=== PATIENT | male | born 1960 | race Caucasian/White ===

== ENCOUNTER 2023-08-09 05:53 | Inpatient (IN) | payer BC, SELFPAY ==
[2023-08-09] VITALS (18 sets, daily range): BP systolic 109–168; BP diastolic 53–128; BMI 38.6; BMI 37.1
--- NOTE | 2023-08-09 03:19 | ED.GENMED ---
History of Present Illness
General
Chief Complaint: Abdominal Pain
Source: patient and spouse
Exam Limitations: none
Time Seen by Provider: 08/09/23 03:10
Nursing documentation reviewed up to this point in time: agreed with
Travel History
Have you had any contact with someone who has COVID-19?: No
Do you have any symptoms of coronavirus? Fever > 100 degrees, chills, cough, shortness of breath, sore throat, loss of taste or smell, muscle aches, or headache?: No
History of Present Illness
History of Present Illness:
63-year-old male presents emergency department complaining of diffuse abdominal pain, writhing began 5 hours ago. He takes Eliquis, recent right hip replacement on OxyContin and stool softener. He feels constipated and has not had a bowel 3 days.
Past History
Past History
ED Past Medical History: Arrthythmia (Atrial fib), CAD, HTN, Hypercholesterolemia and Other (Kidney stones)
ED Past Surgical History: Cardiac (2011 CABG) and Orthopedic (Left knee replacement. Right hip replacement)
Social History
Tobacco: Non-smoker
Alcohol: Occasional
Drug: None
Personal:
Living: alone
Review of Systems
Review of Systems
Allergies reviewed?: Yes
All Other Systems: Not applicable
Constitutional: Reports no symptoms
EENT: Reports no symptoms
Respiratory: Reports no symptoms
Cardiac: Reports no symptoms
ABD/GI: Reports abdominal pain, nausea and constipated
: Reports no symptoms
Musculoskeletal: Reports no symptoms
Skin: Reports no symptoms
Neurological: Reports no symptoms
Endocrine: Reports no symptoms
Hematologic/Lymphatic: Reports no symptoms
Psychiatric: Reports no symptoms
Phy Exam
Physical Exam
Physical Exam:
Physical Exam
General: Moderate distress, fever 100.4
Neck: supple. no meningeal signs. normal posterior pharynx
Heart: s1/s2 tachycardia, no murmur. equal radial
pulses.
HEENT: Pupils equal round reactive to light, EOMI
Lungs: no acute respiratory distress. clear bilaterally
Abdomen: normal bowel sounds. Diffuse abdominal tenderness, rebound, guarding. No CVAT
Neuro: alert and oriented. no focal neurological deficits cranial nerves II through XII intact
Skin: no rash
Psychiatric: well kept. interactive and cooperative
Extremities: no edema. no calf tenderness. negative homans. good distal pulses
Course
Orders/Labs/Results
Orders:
Orders
08/09/23 02:52
EKG [Electrocardiogram (*1)] Urgent
Reason for Study: Abdominal Pain
EKG- Treatment ONCE
08/09/23 02:58
IV Insert/Care/Rem.- Treatment PRN
08/09/23 02:59
Cardiac Monitoring- Treatment ONCE
Pulse Ox/spot Check [RESP] Urgent
Quantity: 1
Special Instructions: ON ROOM AIR
08/09/23 03:16
Complete Blood Count/With Diff Urgent
Comprehensive Metabolic Panel Urgent
Lactic Acid Q4H
Comment: ON ICE, CANCEL 2ND ORDER IF FIRST LACTIC ACID LEVEL <2
Lipase Urgent
Troponin I Urgent
Blood Culture Q30M
BURKE Source: Blood/Venous
Specimen Description:
Comment: FROM 2 SEPARATE SITES
08/09/23 03:17
HYDROmorphone [Dilaudid] 1 mg IV NOW STA
Ondansetron Injectable [Zofran] 4 mg IV NOW STA
08/09/23 03:56
CT Abd/pel Without Iv Or Oral Urgent
Comment:
Reason For Exam: diffuse abd pain, fever
08/09/23 04:28
Urinalysis Reflex To Culture Urgent
Date Specimen was Collected: 08/09/23
Time Specimen was Collected: 04:24
Urine Microscopic Reflex Cult Urgent
Blood Culture Q30M
BURKE Source: Blood/Venous
Specimen Description:
Comment: FROM 2 SEPARATE SITES
08/09/23 04:45
Piperacillin/Tazo 4.5 Gram [Zosyn] 4.5 gram in 100 ml IV NOW
08/09/23 05:12
HYDROmorphone [Dilaudid] 1 mg IV NOW STA
08/09/23 05:34
HYDROmorphone [Dilaudid] 1 mg IV NOW STA
Prochlorperazine [Compazine] 10 mg IV NOW STA
08/09/23 05:39
Admit/Transfer Patient As Directed
Co-Sign Provider:
Level of Care: Inpatient admission
Assign to:: Telemetry
Physician / Group: Piotr
Diagnosis: Acute Cholecystitis
Reason for Telemetry: Arrhythmia
Date to Stop Telemetry: 08/12/23
Time to Stop Telemetry: 11:00
Reason for Hospitalization: Acute Cholecystitis
Expected length of stay greater than two midnights?: Yes
ELOS- Estimated Length of Stay in days: 4
I certify the patient meets the requirements for IP care: Yes
08/09/23 05:40
Code Status As Directed
Resuscitation Status: Full Code
08/09/23 05:45
Furosemide [Lasix] 20 mg IV NOW STA
08/09/23 06:00
Flush (0.9% Sodium Chloride) [Flush (Nss)] See Dose Instructions IV PER PROTOCOL
08/09/23 07:15
Lactic Acid Q4H
Comment: ON ICE, CANCEL 2ND ORDER IF FIRST LACTIC ACID LEVEL <2
08/09/23 07:19
Acetaminophen [Tylenol] 650 mg PO Q4HPRN PRN
HYDROmorphone [Dilaudid] 0.5 mg IV Q4HPRN PRN
Ondansetron Injectable [Zofran] 4 mg IV Q6HPRN PRN
08/09/23 07:19
SURGICAL CONSULT Routine
Consulting Provider: Osmani Gardner
Was physician already notified: Yes
Reason for consult: Cholecystitis
Urine Osmolality Random [Osmolality, Random Urine] Routine
Urine Sodium Routine
Activity As Directed
Activity Level: Ambulate
With Assistance
Bladder Scan As Directed
Follow Bladder Retention/Intermittent Cath Algorithm?: Yes
PRN if no void in __ hours: 6
Frequency: Per Retention Algorithm
If Bladder Scan Result >: 400
then:: Straight cath
EKG with chest pain [ECG as needed] As Directed
ECG as needed for:: Chest Pain
I/O [Intake/ Output] As Directed
Frequency: Per unit guidelines
Pneumatic Compression Sleeves As Directed
Type: Knee high
Straight Cath As Directed
Frequency: Per Retention Algorithm
Additional Instructions: straight cath as needed per acute urinary retention algorithm for 24 hrs
Additional Instructions: for bladder scan greater than 400 mL
Vital Signs As Directed
Frequency: Per unit guidelines
Weight As Directed
Frequency: Daily
Oxygen Therapy [O2 Therapy] [RESP] Routine
Titrate/Wean O2 to maintain O2 sat greater than (%): 94
Rx Incentive Spirometry [RESP] Routine
Frequency: q1h while awake
Ot Eval And Treat Routine
PT Consult [Pt Eval And Treat] Routine
Activity Level: Ambulate
With Assistance
DX Deep Vein Thrombosis Video Routine
08/09/23 08:00
Metoprolol Xl [Toprol Xl] 50 mg PO DAILY
Pantoprazole [Protonix IV] 40 mg IV DAILY
08/09/23 12:00
Piperacillin/Tazo 3.375 Gram [Zosyn] 3.375 gram in 50 ml IV Q6H
08/10/23 Breakfast
NPO
Allow oral meds: Yes
Allow clear liquids: Sips of Clears
Basic Metabolic Panel IN AM
Complete Blood Count/No Diff IN AM
LFT [Iiodw-Ychg-Ydkniav] IN AM
US Abdomen Complete/Upper IN AM
Comment:
Reason For Exam: Acute Viviana
08/10/23 08:00
Furosemide [Lasix] 20 mg IV DAILY
08/12/23 11:00
DC Protocol for Telemetry ONCE
Abnormal Lab Results
08/09/23 08/09/23
03:16 04:28
WBC 17.9 H 10^3/uL
(4.8-10.8)
RBC 2.50 L 10^6/uL
(4.70-6.10)
Hgb 7.9 L g/dL
(13.0-18.0)
Hct 24.1 L %
(39.0-52.0)
MCV 96.4 H fL
(80.0-94.0)
MCH 31.6 H pg
(27.0-31.0)
MCHC 32.8 L g/dL
(33.0-37.0)
Abs Immat Gran (auto) 0.1 H 10^3/uL
(0-0.05)
Absolute Neuts (auto) 15.4 H 10^3/uL
(1.4-6.5)
Absolute Lymphs (auto) 0.6 L 10^3/uL
(1.2-3.4)
Absolute Monos (auto) 1.2 H 10^3/uL
(0.1-0.6)
Immature Gran % 0.6 H %
(0-0.5)
Neutrophils % 86.5 H %
(42.2-75.2)
Lymphocytes % 3.5 L %
(20.5-51.1)
Sodium 127 L mmol/L
(135-145)
Potassium 5.3 H mmol/L
(3.5-5.1)
Carbon Dioxide 16 L mmol/L
(22-30)
BUN 33 H mg/dl
(9-20)
Creatinine 1.7 H mg/dL
(0.7-1.3)
Glucose 144 H mg/dl
(70-99)
Total Bilirubin 1.4 H mg/dl
(0.2-1.3)
Alkaline Phosphatase 198 H U/L
(38-126)
Urine Ketones 2+ A
(Negative)
Ur Occult Blood Reflex Trace A
(Negative)
Urine Glucose 3+ A
(Negative)
08/09/23 03:16
08/09/23 03:16
Vital Signs
Initial and Last Documented VS:
Initial Vital Signs
Temp Pulse Resp BP Pulse Ox
100.4 F H 114 28 141/85 98
08/09/23 02:41 08/09/23 02:41 08/09/23 02:41 08/09/23 02:41 08/09/23 02:41
Last Documented Vital Signs
Temp Pulse Resp BP Pulse Ox
100.4 F H 103 23 156/128 97
08/09/23 03:37 08/09/23 07:15 08/09/23 07:15 08/09/23 07:10 08/09/23 07:15
MDM/Problems Addressed
Differential Diagnosis Includes:
UTI, sepsis
MDM/Problems Addressed:
63-year-old male with cholecystitis. Admit to hospitalist. Discussed with Dr. Gardner, on-call general surgeon
Chronic conditions affecting care: HTN and CAD
Acute Exacerbation and/or Progression of Chronic Illness: HTN and CAD
*Radiology
Radiology exam reviewed: radiology read reviewed (CT abdomen pelvis shows acute cholecystitis)
*Pulse Oximetry
Patient hypoxic: no
*EKG
Interpreted by ED Provider?: Yes
EKG Intrepretation Date: 08/09/23
EKG Intrepretation Time: 04:43
Interpretation: abnormal
Comparison EKG: changes noted
Heart Rate: 130
Rate: tachycardiac
Rhythm: sinus tachycardia
[place]: normal axis
Interval: normal interval
QRS Pattern: normal QRS
Ischemia: no ischemia
*Creasing Machine Operator Interpretation
Rate: tachycardiac
Interpretation: abnormal
Heart Rate: 105
Rhythm: sinus tachycardia
*Critical Care Note
Total Time (30-74mins, 75-104mins- exclusive of procedures): Not Applicable
Patient Management
Social determinants of health affecting care: Strong social support
Discussion with other providers: Hospitalist and [employer] Maker (General surgery Dr. Gardner)
Escalation/DeEscalation of care consider admission/obs:
Admit indicated
ED Attending Note
-
Portions of this chart may have been created with voice recognition software.� Occasional wrong word or��sound alike� substitutions may have occurred due to the inherent limitations of voice recognition software.
Discharge Plan
Departure
Patient Disposition: Admit
Date of Disposition: 08/09/23
Time of Disposition: 04:57
Admit to: Telemetry
Presentation/result/management discussed w/ accepting MD/DO: Hospitalist
Patient with high blood pressure during this ER visit?: Yes
Condition: Fair
Discharge Problem:
Acute cholecystitis, Chronic renal insufficiency, Paroxysmal atrial fibrillation
Interventions
Interventions:
*Risk Screen - Suicide Last Done: 08/09/23 03:10
*General Assessment Last Done: 08/09/23 03:10
*Neglect/Abuse Screening Last Done: 08/09/23 03:10
ED- Fall Risk Assessment Last Done: 08/09/23 03:10
*ED COVID-19 Vaccine History Last Done: 08/09/23 03:10
PH-Araznh-Ecekyeplpb Assessment Last Done: 08/09/23 03:10
[2023-08-09 03:25] LABS: % Basophils 0.2 % (0-2); % Eosinophils 2.7 % (0-6); % Immature Granulocytes 0.6 % (0-0.5); % Lymphocytes 3.5 % (20.5-51.1); % Monocytes 6.5 % (1.7-9.3); % Neutrophils 86.5 % (42.2-75.2); Absolute Eosinophils 0.5 10^3/uL (0-0.7); Absolute Immature Granulocytes 0.1 10^3/uL (0-0.05); Absolute Lymphocytes 0.6 10^3/uL (1.2-3.4); Absolute Monocytes 1.2 10^3/uL (0.1-0.6); Absolute Neutrophils 15.4 10^3/uL (1.4-6.5); Hematocrit 24.1 % (39.0-52.0); Hemoglobin 7.9 g/dL (13.0-18.0); Mean Corp Hgb Conc. 32.8 g/dL (33.0-37.0); Mean Corpuscular Hgb 31.6 pg (27.0-31.0); Mean Corpuscular Volume 96.4 fL (80.0-94.0); Nucleated Red Blood Cells % 0 % (-); Platelet Count 371 10^3/uL (130-400); Red Cell Dist. Width 14.4 % (11.5-14.5); White Blood Cell Count 17.9 10^3/uL (4.8-10.8)
[2023-08-09] MEDS: ZOFRAN 4 MG IV (03:29)
[2023-08-09] MEDS: DILAUDID 1 MG IV ×3 (03:30→05:42)
[2023-08-09 03:46] LABS: Lactic Acid 1.3 mmol/L (0.7-2.0)
[2023-08-09 03:47] LABS: ALT (SGPT) 19 U/L (0-50); AST (SGOT) 26 U/L (17-59); Albumin 3.9 g/dl (3.5-5.0); Alkaline Phosphatase 198 U/L (38-126); Blood Urea Nitrogen 33 mg/dl (9-20); Calcium 8.9 mg/dl (8.4-10.2); Carbon Dioxide 16 mmol/L (22-30); Chloride 99 mmol/L (98-107); Estimated Creatinine Clearance 58 ml/min; Glucose 144 mg/dl (70-99); Lipase 110 U/L (23-300); Potassium 5.3 mmol/L (3.5-5.1); Sodium 127 mmol/L (135-145); Total Bilirubin 1.4 mg/dl (0.2-1.3); Total Protein 6.6 g/dl (6.3-8.2); eGFR 44.18
[2023-08-09 04:04] LABS: Troponin I 0.034 ng/ml
[2023-08-09 04:41] LABS: Urine Albumin Trace (Neg - Trace); Urine Bilirubin Negative (Negative); Urine Character Clear (Clear); Urine Color Yellow; Urine Glucose 3+ (Negative); Urine Ketone 2+ (Negative); Urine Leukocyte Negative (Negative); Urine Nitrite Negative (Negative); Urine Occult Blood Trace (Negative); Urine Specific Gravity 1.015 (<1.030); Urine Urobilinogen Negative (Neg - 1+)
[2023-08-09] MEDS: ZOSYN 100 IV (05:16)
[2023-08-09 05:38] LABS: Urine Red Blood Cell None Seen /HPF (0-2); Urine White Cell None Seen /HPF (0-5)
[2023-08-09] MEDS: COMPAZINE 10 MG IV (05:42)
--- NOTE | 2023-08-09 05:45 | HPS.HSE ---
Family Physician
-
Family Physician: Yovani Rodriguez
Chief Complaint
-
Abd Pain
History of Present Illness
Patient is a 63y M with PMH significant for ASCVD, CHFpEF and CKD who presents to ED complaining of abdominal pain. Patient states that he had an episode of pain on evening that was in the RUQ / epigastric region, was fairly severe, but
resolved without intervention. He felt well in the interim until about 10PM today when his symptoms returned. They have not resolved this time but have continued to gradually increase. Patient complains of shaking chills, nausea without emesis
and abdominal pain that is fairly diffuse, but mostly in the epigastric area and the lower quadrants. He denies any prior history of similar symptoms before . He denies any chest pain, dyspnea, palpitations, etc.
Patient's recent history is significant for R MICHI revision that was done at [facility] on 07/20/22. He has been recovering fairly well from that; however, he does admit to ongoing issues with constipation since thet surgery.
He denies any issues with urination. He notes that he has been drinking a great deal of fluids. This evening particularly he drank 'gallons' hoping this would help his abdominal symptoms.
Medical History
Past Medical History
Past Medical History: Reports Other
Additional Past Medical History:
ASCVD
Chronic HFpEF
Paroxysmal Atrial Fibrillation
Nephrolithiasis
Benign Hypertension
Obesity
PATRIZIA on CPAP
Past Surgical History: Reports Other
Additional Past Surgical History:
Right MICHI Revision (07/20/23)
Right MICHI
Left TKA
PVI Ablation
CABG x 3
Social History
Tobacco: Non-smoker
Alcohol: Occasional (Rarely.)
Drug: None
Family History
Family History: Other (Mother: CAD Father: Alcoholism)
Allergies / Home Medications
Allergies reflects when Allergies were last updated in [facility].
Home Medications with original date entered in [facility]
Allergy/Medication List:
Allergies
Allergy/AdvReac Type Severity Reaction Status Date / Time
chlorthalidone Allergy Nausea Verified 02/10/22 13:00
pollen extracts Allergy coughing, Verified 02/10/22 13:00
wheezing,
sneezing
oxycodone HCl [From Percocet] AdvReac upset Verified 02/10/22 13:00
stomach
Home Medications
apixaban 5 mg tablet (Eliquis) 5 mg PO BID Blood clot prevention/tx 11/06/21
multivitamin with folic acid 400 mcg tablet (Tab-A-Margy) 1 tab PO DAILY Supplement 11/11/21
rosuvastatin 40 mg tablet (Crestor) 40 mg PO DAILY High cholesterol 11/11/21
lisinopril 20 mg tablet 20 mg PO BID #60 tabs 11/14/21
dapagliflozin propanediol 10 mg tablet (Farxiga) 10 mg PO DAILY 12/06/21
sildenafil 100 mg tablet (Viagra) 100 mg PO PRN PRN erectile dysfunction 12/06/21
docusate sodium 100 mg capsule 100 mg PO BID 08/09/23
furosemide 40 mg tablet 40 mg PO QMWF 08/09/23
metoprolol succinate 50 mg tablet,extended release 24 hr 50 mg PO DAILY 08/09/23
oxycodone 5 mg tablet 10 mg PO Q4H PRN severe pain 08/09/23
Review of Systems
-
History Source: Patient
A 12 point ROS was completed and negative except as noted: Yes
Constitutional: Reports Chills; Denies Fever
EENT: Denies Sore Throat
Respiratory: Denies Cough or Trouble Breathing
Cardiac: Denies Chest Pain or Palpitations
Abdomen/GI: Reports Abdominal Pain, Nausea and Constipated; Denies Vomiting
: Denies Dysuria, Frequency or Flank Pain
Neurological: Denies Dizzy or Headache
Psych: Reports Anxiety; Denies Depression
Physical Exam
Vital Signs
Vital Signs
Temp Pulse Resp BP Pulse Ox
100.4 F H 107 26 168/60 98
08/09/23 03:37 08/09/23 05:15 08/09/23 05:15 08/09/23 05:00 08/09/23 02:41
Physical Exam
General: Other (63y M in moderate distress due to abdominal pain.)
HEENT: Moist mucous membranes and PERRLA
Respiratory: Clear; No Wheezes, Rales or Rhonchi
Cardiac: S1/S2, Regular Rhythm and Murmur (II/ FREDY)
GI: Other (Softly distended. Diffusely tender - but specifically in the RUQ and bilateral lower quadrants. Bowel sounds present but diminished.)
Musculoskeletal: No Clubbing, No Cyanosis and Other (Edema at the R hip surrounding incision. Healing well. No significant ecchymosis.)
Neuro: AO x 3
Laboratory Results
-
08/09/23 03:16
08/09/23 03:16
Laboratory Results
Lactic Acid 1.3 mmol/L (0.7-2.0) 08/09/23 03:16
Total Bilirubin 1.4 mg/dl (0.2-1.3) H 08/09/23 03:16
AST 26 U/L (17-59) 08/09/23 03:16
ALT 19 U/L (0-50) 08/09/23 03:16
Alkaline Phosphatase 198 U/L (38-126) H 08/09/23 03:16
Troponin I 0.034 ng/ml 08/09/23 03:16
Lipase 110 U/L (23-300) 08/09/23 03:16
Impression/Plan
-
A/P: Patient is a 63y M with PMH significant for ASCVD, CHF and CKD who presents to ED for abdominal pain.
Acute Cholecystitis
Sepsis secondary to the above
- Admit for further evaluation and treatment.
- Patient presents with fever, tachycardia, leukocytosis and evidence for acute cholecystitis.
- CT scan shows GB distention with wall thickening and surrounding stranding. No evident gallstones.
- IV abx with Zosyn for now.
- IV pain control, antiemetics, etc.
- Surgery evaluation for eventual cholecystectomy
- Hold Eliquis for intervention - last dose was 08/08 PM.
Hyponatremia
- Likely secondary to increased fluid intake.
- Patient with increased fluid intake since surgery, but significantly moreso over the past 24 hours or so.
- Fluid restriction (NPO for now).
- Monitor I/Os and suspect patient will diurese appropriately.
- Check urine studies to confirm etiology.
- Will dose usual Lasix daily for now (see below).
- Consider Nephrology evaluation if no significant improvement.
s/p Right MICHI - Revision
- Healing well. Continue local care.
- Continue pain control.
- PT / OT evaluations.
Blood Loss Anemia
- Hgb on admission is 7.9 with baseline around 11-12 g/dL.
- Likely secondary to blood loss due to recent surgery.
- Holding Eliquis.
- Follow H&H.
- Consented for transfusion if necessary - which it may be perioperatively.
- Check iron studies.
ASCVD
- Stable. No complaints of chest pain.
- s/p CABG in the past but patient denies any coronary stents.
- Continue metoprolol with holding parameters.
Paroxysmal Atrial Fibrillation
- Stable. In sinus rhythm at present.
- Holding Eliquis as noted above for probable intervention.
- Continue metoprolol as noted.
- Monitor on tele.
Chronic HFpEF
- Suspect some degree of hypervolemia - likely due to recent increase in in take as noted above.
- Change Lasix from thrice weekly to daily for now.
- Follow I/Os, daily weights, etc.
- Adjust regimen as needed for euvolemia.
PATRIZIA on CPAP
- Continue usual AutoPAP therapy.
- Has device from home.
Obesity due to excess calories
- Affects all aspects of care.
- Encourage healthy diet and increased exercise with goal of weight loss.
DVT Prophylaxis: SCDs
Code Status: Full
[2023-08-09] MEDS: LASIX 20 MG IV (05:54)
--- NOTE | 2023-08-09 09:18 | W.PN.HOSP.TC ---
Today's Communication/Plan
-
Awaiting surgical consult
Continue IV abx.
Assessment / Plan
Assessment / Plan
63y M with PMH significant for ASCVD, CHF and CKD who presents to ED for abdominal pain.
1. Acute Cholecystitis, with sepsis (sepsis addressed separately)
Sepsis secondary to the above
�- CT scan shows GB distention with wall thickening and surrounding stranding.� No evident gallstones.
� - IV abx with Zosyn.
� - IV pain control, antiemetics
� - Surgery evaluation for eventual cholecystectomy
� - Hold Eliquis for possible intervention - last dose was 08/08 PM.
2. Sepsis (vs SIRS), Lactic acid not elevated at 1.3, with atypical fluid overload.
-BP elevated 156/128
-Fluid overloaded with peripheral edema
-Significant hyponatremia - likely hypervolemic hyponatremia
-Usually with sepsis, the standard of care is high volume fluids, in this case that would be detrimental as patient is fluid overloaded, not hypotensive, perfusing all tissues without lactic acidosis.
-Monitor BP
-Lasix as needed
-follow fluid status closely
3. Hyponatremia, likely hypervolemic hyponatremia
�- Likely secondary to increased fluid intake.
�- Patient with increased fluid intake since surgery, but significantly more so over the past 24 hours or so.
� - Fluid restriction (NPO for now).
� - Monitor I/Os and suspect patient will diurese appropriately.
� - Check urine studies to confirm etiology.
� - Dose usual Lasix daily for now (see below).
� - Nephrology evaluation if no significant improvement.
4. s/p Right MICHI - Revision
�- Healing well.�
- Continue local care.
� - Continue pain control.
� - PT / OT evaluations.
5. Blood Loss Anemia, s/p recent surgery
�- Hgb on admission is 7.9 with baseline around 11-12 g/dL.
�- Likely secondary to blood loss due to recent surgery.
� - Hold Eliquis.
� - Follow H&H. Now 7.04/05.1
� - Consented for transfusion if necessary - which it may be perioperatively.
Transfuse if < 01/30
� - Check iron studies.
6. ASCVD - Stable.� No complaints of chest pain.
�- s/p CABG in the past but patient denies any coronary stents.
� - Continue metoprolol with holding parameters.
7. Paroxysmal Atrial Fibrillation - Stable.� In sinus rhythm at present.
� - Hold Eliquis as noted above for probable intervention.
� - Continue metoprolol as noted.
� - Monitor on tele.
8. Chronic HFpEF
�- Suspect some degree of hypervolemia - likely due to recent increase in intake as noted above.
� - Change Lasix from thrice weekly to daily for now.
� - Follow I/Os, daily weights, etc.
� - Adjust regimen as needed for euvolemia.
9. PATRIZIA on CPAP - chronic
� - Continue usual AutoPAP therapy.
� - Has device from home.
10. Obesity due to excess calories, BMI 39
�- Affects all aspects of care.
� - Encourage healthy diet and increased exercise with goal of weight loss.
DVT Prophylaxis:� SCDs
Code Status:� Full
Anticipated Discharge: > 48 hours
Subjective/Interval History
-
Date of Service: August 09, 2023
Continues to have abd. pain.
Objective Data
-
Labs:
Laboratory Results
08/09/23
03:16
WBC 17.9 H
Hgb 7.9 L
Hct 24.1 L
Plt Count 371
Sodium 127 L
Potassium 5.3 H
Chloride 99
Carbon Dioxide 16 L
BUN 33 H
Creatinine 1.7 H
Glucose 144 H
Calcium 8.9
Total Bilirubin 1.4 H
AST 26
ALT 19
Alkaline Phosphatase 198 H
Vital Signs:
Vital Signs
Temp Pulse Resp BP Pulse Ox
100.4 F H 104 25 164/65 98
08/09/23 03:37 08/09/23 09:15 08/09/23 09:15 08/09/23 09:00 08/09/23 09:15
I&O
08/08/23 08/09/23 08/10/23
06:59 06:59 06:59
Output Total 850 / 850
Balance -850 / -850
Review of Systems
-
History Source: Patient
Abdomen/GI: Reports Abdominal Pain (all four quadrants)
Physical Exam
-
General: Well Developed, Well Nourished and No Apparent Distress
HEENT: Normocephalic, Nose Appears Normal and Ears Appear Normal
Respiratory: Clear to Auscultation
Cardiac: Murmur and Tachycardic
GI: Soft and Tender (all four quadrants)
Musculoskeletal: No Clubbing, No Cyanosis, Edema, Right Lower Extrem and Edema, Left Lower Extrem
Skin: Warm and Dry; Negative Rash
Neuro: Awake, Alert and Oriented
Psych: Calm
Data Reviewed
-
Labs: Labs Reviewed by me
Sepsis
Capillary Refill
Right Upper Extremity:
Parisa Time: Less than 3 sec
Pulse Evaluation
Right Radial:
Pulse Evaluation: Present
[2023-08-09] MEDS: TOPROL XL 50 MG PO (09:24)
[2023-08-09] MEDS: DILAUDID 0.5 MG IV ×5 (09:26→23:22)
[2023-08-09] MEDS: PROTONIX IV 40 MG IV (09:26)
[2023-08-09] MEDS: NSS (PRESERVATIVE FREE) 10 ML IV (09:26)
[2023-08-09 10:28] LABS: Iron 41 ug/dl (49-181)
[2023-08-09 10:35] LABS: Percent Saturation 16 % (20-50); Total Iron Binding Capacity 251 ug/dl (261-462)
[2023-08-09 10:40] LABS: Osmolality Urine 375 mOsm/kg (300-900)
[2023-08-09 10:45] LABS: Urine Sodium 88 mmol/L (30-90)
--- NOTE | 2023-08-09 11:09 | PTCARENOTE ---
pt wakes to name states 5/10 ruq pain. pain med given as ordered. pt stand with one person assist to void. right hip inc clean dry. pt using walker at home. pt on home cpap now. nsr seen on monitor.
[2023-08-09] MEDS: ZOSYN 50 IV ×3 (12:28→23:27)
[2023-08-09] MEDS: DILAUDID IV (12:28)
--- NOTE | 2023-08-09 13:58 | CON.GS ---
Addendum entered and electronically signed by Osmani Gardner MD 08/09/23 14:53:
I saw and examined the patient.
The PA's note was reviewed and I agree with the note.
Comment:
Patient seen earlier with PA.
History, vitals, labs, and imaging reviewed. Patient seen and examined.
53-year-old male on Eliquis with acute cholecystitis with associated right upper quadrant tenderness and fever. This was confirmed on imaging. Agree with admission, IV antibiotics, IV resuscitation, and holding Eliquis. Will likely need a
cholecystectomy. Will tentatively posted for tomorrow for the general surgery service. They will reassess assess in the a.m. Patient understands plan. All questions answered.
Thanks.
Original Note:
Consultation
-
Date/Time Consultation Requested: 08/09/2023, 07:19
Date/Time Consultation Performed: 08/09/2023, 11:00
Requesting Provider: Kvng Saldaña DO
Performing Provider: Osmani Gardner MD
Reason for Consultation: acute cholecystitis
Medical History
-
Chief Complaint: abdominal pain
History of Present Illness:
63-year-old male presents the emergency department this morning complaining of abdominal pain. He had an episode of the pain 3 days ago that resolved. The pain returned again late last evening around the epigastric area and right lower quadrant.
He states he has had chills, fevers, and nausea associated with the pain. He recently underwent a right hip replacement at [facility] on 07/20/2022. CT shows acute cholecystitis. We have been consulted for further surgical opinion.
Past Medical History
Past Medical History: Other (ASCVD, Chronic HFpEF, Paroxysmal Atrial Fibrillation, Nephrolithiasis, Benign Hypertension, Obesity, PATRIZIA, CPAP)
Past Surgical History: Other (Right MICHI Revision (07/20/23), Right MICHI, Left TKA, PVI Ablation, CABG x 3)
Social History
Tobacco: Non-Smoker
Alcohol: Occasional
Drug: None
Family History
Family History: Reviewed & Not Pertinent
Allergies / Home Medications
Allergy/AdvReac Type Severity Reaction Status Date / Time
chlorthalidone Allergy Nausea Verified 02/10/22 13:00
pollen extracts Allergy coughing, Verified 02/10/22 13:00
wheezing,
sneezing
oxycodone HCl [From Percocet] AdvReac upset Verified 02/10/22 13:00
stomach
Medication Instructions Recorded Confirmed Type
apixaban 5 mg tablet (Eliquis) 5 mg PO BID Blood clot 11/06/21 08/09/23 History
prevention/tx
multivitamin with folic acid 400 1 tab PO DAILY Supplement 11/11/21 08/09/23 History
mcg tablet (Tab-A-Margy)
rosuvastatin 40 mg tablet (Crestor) 40 mg PO DAILY High cholesterol 11/11/21 08/09/23 History
lisinopril 20 mg tablet 20 mg PO BID #60 tabs 11/14/21 08/09/23 Rx
dapagliflozin propanediol 10 mg 10 mg PO DAILY 12/06/21 08/09/23 History
tablet (Farxiga)
sildenafil 100 mg tablet (Viagra) 100 mg PO PRN PRN erectile 12/06/21 08/09/23 History
dysfunction
acetaminophen 500 mg tablet 1,000 mg PO Q6HPRN PRN mild pain 08/09/23 08/09/23 History
(Tylenol Extra Strength)
amlodipine 5 mg tablet 5 mg PO DAILY 08/09/23 08/09/23 History
docusate sodium 100 mg capsule 100 mg PO BID 08/09/23 08/09/23 History
furosemide 40 mg tablet 40 mg PO QMWF 08/09/23 08/09/23 History
metoprolol succinate 50 mg 50 mg PO DAILY 08/09/23 08/09/23 History
tablet,extended release 24 hr
oxycodone 5 mg tablet 10 mg PO Q4H PRN severe pain 08/09/23 08/09/23 History
Review of Systems
-
History Source: Patient
Constitutional: Fever and Chills
Abdomen/GI: Abdominal Pain and Nausea
A 10 point review of systems was completed, and was negative except as per HPI.
Physical Exam
Vital Signs
Temp Pulse Resp BP Pulse Ox
99.6 F 105 22 146/72 95
08/09/23 11:07 08/09/23 11:00 08/09/23 11:00 08/09/23 11:00 08/09/23 11:08
08/08/23 08/09/23 08/10/23
06:59 06:59 06:59
Actual Weight 125.4 kg
Body Mass Index (BMI) 38.6
Lab Results
08/09/23 03:16
08/09/23 03:16
WBC 17.9 10^3/uL (4.8-10.8) H 08/09/23 03:16
Hgb 7.9 g/dL (13.0-18.0) L 08/09/23 03:16
Hct 24.1 % (39.0-52.0) L 08/09/23 03:16
Plt Count 371 10^3/uL (130-400) 08/09/23 03:16
Abs Immat Gran (auto) 0.1 10^3/uL (0-0.05) H 08/09/23 03:16
Neutrophils % 86.5 % (42.2-75.2) H 08/09/23 03:16
Physical Exam
General: Well Developed, Well Nourished and No Apparent Distress
GI: Soft and Tender (RUQ)
Skin: Warm and Dry
Neuro: AO x 3
Data Reviewed
-
CT Scan: Image Personally Visualized and interpreted, Report Reviewed by me and Discussed with Patient
Old Records: Reviewed
Assessment / Plan
-
Assessment: 63yo male presents to the ER with abdominal pain, found to have acute cholecystitis on CT, on Eliquis, tachycardic with a tmax 100.4.
Plan:
1. Continue NPO status.
2. Trend labs, WBC 17.9. Continue antibiotics.
3. Hold Eliquis.
4. Will add to OR schedule for tomorrow. Discussed with patient and at bedside.
[2023-08-09] MEDS: TYLENOL 650 MG PO ×2 (14:46→21:48)
[2023-08-10] VITALS (13 sets, daily range): BP systolic 20–149; BP diastolic 41–69; BMI 36.6
[2023-08-10] MEDS: DILAUDID 0.5 MG IV ×2 (03:32→08:27)
[2023-08-10 06:03] LABS: Hematocrit 26.4 % (39.0-52.0); Hemoglobin 8.4 g/dL (13.0-18.0); Mean Corp Hgb Conc. 31.8 g/dL (33.0-37.0); Mean Corpuscular Hgb 30.7 pg (27.0-31.0); Mean Corpuscular Volume 96.4 fL (80.0-94.0); Mean Platelet Volume 9.2 fL (7.4-10.4); Platelet Count 394 10^3/uL (130-400); Red Blood Cell Count 2.74 10^6/uL (4.70-6.10); Red Cell Dist. Width 14.3 % (11.5-14.5)
[2023-08-10] MEDS: ZOSYN 50 IV ×4 (06:06→23:38)
[2023-08-10] MEDS: TYLENOL 650 MG PO ×3 (06:09→23:46)
[2023-08-10 06:36] LABS: ALT (SGPT) 19 U/L (0-50); AST (SGOT) 29 U/L (17-59); Albumin 3.1 g/dl (3.5-5.0); Alkaline Phosphatase 160 U/L (38-126); Blood Urea Nitrogen 32 mg/dl (9-20); Calcium 8.6 mg/dl (8.4-10.2); Carbon Dioxide 23 mmol/L (22-30); Chloride 100 mmol/L (98-107); Direct Bilirubin 0.7 mg/dl (0.0-0.4); Estimated Creatinine Clearance 57 ml/min; Glucose 101 mg/dl (70-99); Potassium 4.6 mmol/L (3.5-5.1); Sodium 132 mmol/L (135-145); Total Bilirubin 1.2 mg/dl (0.2-1.3); Total Protein 5.9 g/dl (6.3-8.2); eGFR 44.18
[2023-08-10 06:40] LABS: Lipase 2213 U/L (23-300)
[2023-08-10] MEDS: TOPROL XL 50 MG PO (08:10)
[2023-08-10] MEDS: LASIX 20 MG IV (08:11)
[2023-08-10] MEDS: NSS (PRESERVATIVE FREE) 10 ML IV (08:11)
[2023-08-10] MEDS: PROTONIX IV 40 MG IV (08:11)
--- NOTE | 2023-08-10 09:14 | W.PN.GS2 ---
Addendum entered and electronically signed by Paul Alberto MD 08/10/23 13:20:
Of note patient states that he would like to appoint Mariela Omer is his healthcare POA and make any medical decisions for him if he were to become incapacitated. He does have 2 daughters and Mariela will consult with them before any major
decisions.
Original Note:
Today's Communication / Plan
-
Will plan for OR today.
Assessment / Plan
-
This is a 63-year-old male with a history of A-fib on Eliquis (last dose was 120 7:24 PM dose) who presents with the 2 to 4-day history of worsening right upper quadrant abdominal pain. In the setting of 2 weeks of general malaise after recent hip
surgery. CT scan concerning for acute cholecystitis. He has a mild HERNANDEZ, elevated leukocytosis, borderline elevated LFTs and now lipase is > 2000 from within normal limits yesterday concerning for evolving pancreatitis.
N.p.o., IV fluids.
Type and screen.
Will plan for a laparoscopic cholecystectomy and cholangiogram today.
Risks/Benefits/Alternatives discussed at length (bleeding, infection, injury to surrounding structures, acute/chronic pain), patient wishes to proceed with surgery. All questions answered. Consent obtained.
I spent roughly 55 minutes in total for the care of this patient today including direct patient care and counseling, reviewing labs, imaging, coordination of care, as well as documentation.
Time Spent
Total Time Spent with Patient (in minutes): 25
Subjective Data
-
Date of Service: August 10, 2023
Interval Events:
No acute events overnight. Fever, continued pain. Denies Nausea/Vomiting.
Objective Data
-
Intake and Output
08/09/23 08/10/23 08/11/23
06:59 06:59 06:59
Intake Total 100 / 100
Output Total 850 / 850 1050 / 1050
Balance -850 / -850 -950 / -950
Intake:
IV piggybacks 100 / 100
Output:
Urine, Voided 850 / 850 1050 / 1050
Vital Signs
Temp Pulse Resp BP Pulse Ox
98.2 F 106 19 149/65 96
08/10/23 07:00 08/10/23 08:11 08/10/23 07:00 08/10/23 08:11 08/10/23 07:00
Lab Results
08/10/23 05:16
08/10/23 05:16
Calcium 8.6 mg/dl (8.4-10.2) 08/10/23 05:16
Total Bilirubin 1.2 mg/dl (0.2-1.3) 08/10/23 05:16
Direct Bilirubin 0.7 mg/dl (0.0-0.4) H 08/10/23 05:16
AST 29 U/L (17-59) 08/10/23 05:16
ALT 19 U/L (0-50) 08/10/23 05:16
Alkaline Phosphatase 160 U/L (38-126) H 08/10/23 05:16
Total Protein 5.9 g/dl (6.3-8.2) L 08/10/23 05:16
Albumin 3.1 g/dl (3.5-5.0) L 08/10/23 05:16
Physical Exam
-
GENERAL/NEURO: Awake, Alert, no distress
CHEST: Unlabored breathing on RA
ABDOMEN: Soft, obese, diffusely tender, nondistended.
--- NOTE | 2023-08-10 09:19 | W.SUR.PREOP ---
Pre-Operative Surgical Note
-
I have examined this patient prior to the performance of the scheduled procedure.
The patient's condition is unchanged from the time of the current History and
Physical and the patient is able to undergo the scheduled procedure.
--- NOTE | 2023-08-10 13:20 | W.IMMPOSTOP ---
Surgical Immed Post Op Note
-
Primary Surgeon: Paul Alberto MD
Assisting Surgeon: None
Ghost Writer: ROMAINE Fortune
Pre-op Diagnosis: Acute cholecystitis
Post-op Diagnosis: Gangrenous cholecystitis
Procedure Performed: Laparoscopic cholecystectomy and cholangiogram
Anesthesia Type: General
Specimen / Cultures: Gallbladder
Estimated Blood Loss: 23 cc
Complications: None
Operative Findings: Acute, gangrenous cholecystitis. Top-down cholecystectomy performed with part of the posterior wall left behind on the liver. We are able to dissect down to the duct I performed a cholangiogram which demonstrated no filling
defects and normal biliary anatomy. We identified the cystic artery which was clipped twice and divided. The cystic duct was also clipped and divided, and doubly ligated with a 0 PDS Endoloop. A 19 [place]er round Esau drain was placed
POST OP PLAN:
Imaging: None
Labs: Routine AM
Diet: Okay for clears today
Analgesia: Tylenol 650mg q6 Tiffani, Catie 5mg q6 PRN, Dilaudid 0.5mg q2h PRN
Neuro/vascular checks: q4h
AC/AP: Hold Therapeutic AC until postop day 3, Ok for DVT PPx
Activity: Ad Charlotte
Wound/Incisions/Drains: Routine, ERMELINDA to bulb suction.
Abx: Continue Zosyn or p.o. equivalent x 4 days
Dispo: RNF.
--- NOTE | 2023-08-10 14:47 | OR.RPT ---
Addendum entered and electronically signed by Paul Alberto MD 08/10/23 16:45:
A 22 modifier is being requested for this procedure as this was a technically difficult cholecystectomy, required additional adjuncts (hemostatic agents, cholangiogram catheters) and time compared to a typical cholecystectomy for cholecystitis.
Original Note:
Operative Report
Operative Report
Patient Name: Michael Chaudhry
: 1960
Date of Operation: 08/10/2023
Preoperative Diagnosis: Acute cholecystitis
Postoperative Diagnosis: Gangrenous cholecystitis
Procedure(s):
Laparoscopic Cholecystectomy with Cholangiogram (+ 22 modifier)
Surgeon(s):
Dr. Alberto
Adventure Therapist(s):
ROMAINE Fortune
Anesthesia: General
Estimated Blood Loss: 23 cc
Urine Output: None
Drains/Lines/Implants: 19 Citizen Of [place] round Esau drain.
Specimens:
1. Gallbladder and contents
HPI/Surgical Indications:
This is a 63-year-old male who presents with 2-4 days of abdominal pain. Exam, labs and imaging are consistent with significant acute cholecystitis, and possible early pancreatitis. Risks/Benefits/Alternatives were discussed at length, and the
patient agreed to proceed with surgery.
Findings:
The patient was noted to have significant gallbladder inflammation with dhruv necrosis of the gallbladder wall, thick overlying omental adhesions and near complete obliteration of the natural planes between the gallbladder and the liver. A Top-down
cholecystectomy was performed with part of the posterior wall left behind on the liver.� We are able to dissect down to the duct. I performed a cholangiogram which demonstrated no filling defects and normal biliary anatomy.� We identified the
cystic artery which was clipped twice and divided.� The cystic duct was also clipped and divided, and doubly ligated with a 0 PDS Endoloop.� A 19 Citizen Of [place] round Esau drain was placed
Procedure Description:
The patient was brought to the Operating Room and placed in the supine position with one arm tucked. Following uneventful induction of general endotracheal anesthesia, an orogastric tube was placed. The abdomen was prepped and draped in the usual
sterile fashion. A timeout was performed confirming the procedure, consent, and that IV antibiotics were infused and sequential compression devices were confirmed to be on. The abdomen was entered using a left subcostal Veress technique followed by
a right upper quadrant 5 mm Optiview trocar. Pneumoperitoneum to 15 mmHg pressure was obtained without difficulty and we confirmed that no injury had occurred during our entry. The patient was positioned in reverse Trendelenberg and rotated with the
right side up slightly. Two 5mm trocars were then placed along the right subcostal margin, and a 12 mm port in the epigastrium. There was a thick omental rind over the gallbladder which was carefully peeled back revealing a gangrenous and necrotic
appearing gallbladder. The gallbladder was emptied using a decompressing needle through the fundus of the gallbladder with evacuation of thick bile before A locking grasping forceps was placed on the fundus of the gallbladder where it was then
retracted cephalad and to the right. There were more omental adhesions socked in over the infundibulum which were also carefully peeled back. There was significant inflammation noted in the triangle of Calot so I elected instead to do a top-down
cholecystectomy. At 1 point and then dissection we got behind the liver capsule which was mildly hemorrhagic. This was controlled with cautery and placement of a 2 x 4 piece of Surgicel. We then continued transecting the gallbladder off the liver
medially and laterally leaving behind much of the posterior wall. There is significant spillage of bile, but minimal stone disease was noted. A 4 x 4 Ray-Megan was placed in the surgical bed to help trap any stones that did fall. As we approached
the infundibulum the gallbladder was flayed open more so that we could identify the ostium. We also at this time identified a small tubular structure going to the gallbladder which appeared to be the cystic artery. This was dissected out and
controlled with 2 proximal clips and 1 distal. A cholangiocatheter was inserted into the presumed cystic duct. A C-arm was draped and brought into the field. An intra-operative cholangiogram was performed and there there was significant backflow
leakage, was noted to have:
No filling defects in the distal biliary tree
No significant biliary dilation
Sluggish flow of contrast into the duodenum
Normal biliary anatomy, in the right hepatic duct could readily be identified.
The catheter was then removed. Now confident with our anatomy, we continue to dissect towards the true cystic duct taking care to stay very close to the gallbladder. The cystic duct was identified and appeared fairly necrotic/unhealthy itself.
This was controlled with 1 clip proximally and distally and then divided. The cystic duct stump was then ligated with a 0 PDS Endoloop. As mentioned before, there was significant spillage of bile, but no significant stone disease was appreciated.
There were a few small ones which were removed with the gallbladder using a 10 mm specimen bag. The gallbladder bed was inspected and excellent hemostasis was obtained. An additional 2 x 4 piece of Surgicel was placed over the cystic duct and
artery stump. The back wall of the gallbladder was fulgurated. The right upper quadrant of the abdomen was again irrigated and excellent hemostasis was assured. A 19 Citizen Of [place] round Esau drain was inserted via the lateralmost right upper quadrant
port up the right colic gutter and into the gallbladder bed. It was secured at the skin with a 3-0 nylon. All remaining trocars were then removed and the pneumoperitoneum was evacuated. The 12 mm trocar site was closed using a running 0 PDS
suture. All trocar sites were closed at the skin level using 4-0 Monocryl followed by Dermabond. Overall, the patient tolerated the procedure well and was taken to the Recovery Room postoperatively in stable condition.
I was the attending physician and performed the procedure with assistance from the ENGINEERING ADMINISTRATOR above. I was present for all portions of the case
Paul Alberto MD
--- NOTE | 2023-08-10 15:40 | W.PN.HOSP.TC ---
Addendum entered and electronically signed by See Kay MD 08/10/23 17:54:
Patient seen and examined.
Discussed with resident
Discussed with surgery.
Impression:
Acute cholecystitis
Sepsis secondary to above
Acute pancreatitis.
Hypovolemic hyponatremia.
Chronic anemia.
Coronary artery disease status post CABG
Paroxysmal atrial fibrillation on Eliquis prior to anticoagulation
Chronic CHF preserved EF
Obstructive sleep apnea on CPAP
Obesity with BMI of 39.
Plan:
Acute cholecystitis.
Acute pancreatitis.
Sepsis secondary to above.
Status post laparoscopic cholecystectomy with intraoperative cholangiogram.
Imaging including CT scan and cholangiogram with no evidence of biliary obstruction or choledocholithiasis.
Continue antibiotics
Hold anticoagulation for 3 days postoperatively as per surgery.
Diet advanced to clear liquid postoperatively
Hold Lasix monitoring volume status closely
Follow sodium level.
Follow hemoglobin
Original Note:
Today's Communication/Plan
-
.
Assessment / Plan
Assessment / Plan
ASSESSMENT:
Acute cholecystitis/gangrenous cholecystitis s/p laparoscopic cholecystectomy
Sepsis
Hyponatremia
S/P right MICHI
Anemia due to blood loss from recent surgery
ASCVD
Paroxysmal atrial fibrillation
Chronic heart failure with preserved ejection fraction
PATRIZIA on CPAP
Obesity
PLAN:
1. Acute Cholecystitis s/p laparoscopic cholecystectomy with cholangiogram
Postoperative diagnosis: Gangrenous cholecystitis
Intraoperative cholangiogram report: There is filling of the common bile duct and eventual drainage into the small bowel. No filling defects.
�-Preoperative CT scan shows GB distention with wall thickening and surrounding stranding.� No evident gallstones.
� - Continue IV abx with Zosyn.
� - IV pain control: Tylenol 650mg q6 , Ctaie 5mg q6 PRN, Dilaudid 0.5mg q2h PRN,
- Antiemetics : IV Protonix 40 mg
-Eliquis on hold until postop day 3
-Diet : Clear liquids
-Check wound/drain : ERMELINDA to bulb suction drainage
-Check routine A.M. labs
2. Sepsis (vs SIRS), Lactic acid not elevated 1.3, with atypical fluid overload.
-BP elevated 156/128, today 125/46
-Fluid overloaded with peripheral edema
-Usually with sepsis, the standard of care is high volume fluids, in this case that would be detrimental as patient is fluid overloaded, not hypotensive, perfusing all tissues without lactic acidosis.
-Monitor BP
-Lasix as needed
-follow fluid status closely
3. Hyponatremia, likely hypervolemic hyponatremia
�- Likely secondary to increased fluid intake.
�- Patient with increased fluid intake since surgery, but significantly more so over the past 24 hours
�- Monitor I/Os and suspect patient will diurese appropriately.
- Check urine studies to confirm etiology.
�- Dose usual Lasix daily for now (see below).
�- Nephrology evaluation if no significant improvement.
4. s/p Right MICHI - Revision
�- Healing well.�
- Continue local care.
�- Continue pain control.
�- PT / OT evaluations.
5. Blood Loss Anemia, s/p recent surgery
�- Hemoglobin preoperative: 8.4, Hgb on admission is 7.9 with baseline around 11-12 g/dL.
�-Did not require preoperative blood transfusion.
-Check iron studies
6. ASCVD - Stable.� No complaints of chest pain.
�- s/p CABG in the past but patient denies any coronary stents.
� - Continue metoprolol with holding parameters.
7. Paroxysmal Atrial Fibrillation - Stable.� In sinus rhythm at present.
� - Hold Eliquis as noted above for probable intervention.
� - Continue metoprolol as noted.
� - Monitor on tele.
8. Chronic HFpEF
�- Suspect some degree of hypervolemia - likely due to recent increase in intake as noted above.
� -Lasix changed from thrice weekly to daily for now.
� - Follow I/Os, daily weights, etc.
� - Adjust regimen as needed for euvolemia.
9. PATRIZIA on CPAP - chronic
� - Continue usual AutoPAP therapy.
� - Has device from home.
10. Obesity due to excess calories, BMI 39
�- Affects all aspects of care.
� - Encourage healthy diet and increased exercise with goal of weight loss.
DVT Prophylaxis:� SCDs
Code Status:� Full
Anticipated Discharge: 24 - 48 hours
Subjective/Interval History
-
Date of Service: August 10, 2023
Patient complains of pain at the incision site on the deep breathing. No nausea/vomiting, fever/chills.
Drain in place.
Objective Data
-
Labs:
Laboratory Results
08/10/23
05:16
WBC 27.0 H
Hgb 8.4 L
Hct 26.4 L
Plt Count 394
Sodium 132 L
Potassium 4.6
Chloride 100
Carbon Dioxide 23
BUN 32 H
Creatinine 1.7 H
Glucose 101 H
Calcium 8.6
Total Bilirubin 1.2
AST 29
ALT 19
Alkaline Phosphatase 160 H
Vital Signs:
Vital Signs
Temp Pulse Resp BP Pulse Ox
98 F 95 26 125/46 97
08/10/23 14:45 08/10/23 14:45 08/10/23 14:45 08/10/23 14:30 08/10/23 14:45
I&O
08/09/23 08/10/23 08/11/23
06:59 06:59 06:59
Intake Total 100 / 100 100 / 100
Output Total 850 / 850 1050 / 1050 20 / 20
Balance -850 / -850 -950 / -950 80 / 80
Review of Systems
-
All other systems: Reviewed and negative (As per history)
Physical Exam
-
General: Well Developed and Well Nourished
HEENT: Normocephalic and Atraumatic
Respiratory: Clear to Auscultation
Cardiac: Regular Rhythm, S1/S2 and Murmur (Systolic)
GI: Tender and Distended
Musculoskeletal: No Clubbing, No Cyanosis, Edema, Right Lower Extrem and Edema, Left Lower Extrem
Skin: Warm and Dry
Neuro: Awake, Alert, Oriented and AO x 3
Psych: Calm
Data Reviewed
-
Diagnostic Radiology: Report Reviewed by me
Labs: Labs Reviewed by me
--- NOTE | 2023-08-10 16:09 | CM ---
CM met with pt and SALLY/Mariela bedside
Pt post op today lap kevin
Pt resides alone in a 2SH with OSTE
Full flight to second floor
Pt is normally independent at home without any ADs
He recently had hip surgery 3 weeks prior at [facility]
Now using a WW and SPC post hip surgery
Current with [facility] and requesting [facility] if appropriate on dc
Pt has his home cpap bedside
PCP- Yovani Rodriguez
Rx- [facility]
Per PT/OT notes, will need new post op therapy order
SALLY/Mariela requesting notary info for temporary handicap placard
CM to follow up on possible inhouse notary capability
Dtr in [place] Bhavana Chaudhry is POA [phone]
SALLY/Mariela remains as primary contact and to coordinate dc planning through
Discharge Disposition- anticipate home with [facility], watch for higher needs
[2023-08-11] VITALS (10 sets, daily range): BP systolic 96–146; BP diastolic 56–75; PULSE 101–125; O2SAT 99; BMI 36.6
[2023-08-11 00:54] LABS: Glucose - Point of Care 139 mg/dl (70-99)
[2023-08-11] MEDS: ZOSYN 50 IV ×3 (05:43→19:30)
[2023-08-11] MEDS: TYLENOL 650 MG PO ×3 (05:43→17:18)
[2023-08-11 05:50] LABS: % Basophils 0.1 % (0-2); % Lymphocytes 3.9 % (20.5-51.1); % Monocytes 6.4 % (1.7-9.3); % Neutrophils 88.6 % (42.2-75.2); Absolute Immature Granulocytes 0.2 10^3/uL (0-0.05); Absolute Lymphocytes 0.7 10^3/uL (1.2-3.4); Absolute Monocytes 1.1 10^3/uL (0.1-0.6); Absolute Neutrophils 14.9 10^3/uL (1.4-6.5); Hematocrit 22.2 % (39.0-52.0); Hemoglobin 7.3 g/dL (13.0-18.0); Mean Corp Hgb Conc. 32.9 g/dL (33.0-37.0); Mean Corpuscular Hgb 30.9 pg (27.0-31.0); Mean Corpuscular Volume 94.1 fL (80.0-94.0); Mean Platelet Volume 9.1 fL (7.4-10.4); Nucleated Red Blood Cells % 0 % (-); Platelet Count 355 10^3/uL (130-400); Red Blood Cell Count 2.36 10^6/uL (4.70-6.10); Red Cell Dist. Width 14.2 % (11.5-14.5); White Blood Cell Count 16.8 10^3/uL (4.8-10.8)
[2023-08-11 06:23] LABS: ALT (SGPT) 39 U/L (0-50); AST (SGOT) 46 U/L (17-59); Albumin 2.7 g/dl (3.5-5.0); Alkaline Phosphatase 134 U/L (38-126); Blood Urea Nitrogen 45 mg/dl (9-20); Calcium 8.3 mg/dl (8.4-10.2); Carbon Dioxide 25 mmol/L (22-30); Chloride 99 mmol/L (98-107); Glucose 133 mg/dl (70-99); Potassium 3.9 mmol/L (3.5-5.1); Sodium 136 mmol/L (135-145); Total Bilirubin 0.8 mg/dl (0.2-1.3); Total Protein 5.1 g/dl (6.3-8.2)
[2023-08-11 06:29] LABS: Estimated Creatinine Clearance 54 ml/min; eGFR 41.26
[2023-08-11 06:42] LABS: Lipase 218 U/L (23-300)
[2023-08-11] MEDS: PROTONIX IV 40 MG IV (07:46)
[2023-08-11] MEDS: NSS (PRESERVATIVE FREE) 10 ML IV (07:46)
[2023-08-11] MEDS: TOPROL XL PO (07:51)
--- NOTE | 2023-08-11 09:26 | W.PN.GS2 ---
Addendum entered and electronically signed by Solitario Shepherd MD 08/11/23 10:07:
-- When ready (not today) plan for DC with drain and outpatient follow-up with [facility]
Original Note:
Today's Communication / Plan
-
-- LFD
-- Pain control: Tylenol and IV Dilaudid PRN, will start oral Oxycodone (take on full stomach with 'allergy' of stomach upset, can use PO Dilaudid if needed, avoid Tramadol with HERNANDEZ)
-- Abx: Zosyn or PO equiv for 4 days post-op
-- Hold Eliquis for 3 days post-op, SQH for DVT
-- Would monitor in hospital today for dietary tolerance and drain monitoring, possible DC tomorrow
Assessment / Plan
-
Patient is a 63-year-old male with a history of A-fib on Eliquis (last dose was 120 7:24 PM dose) who presents with the 2 to 4-day history of worsening right upper quadrant abdominal pain. In the setting of 2 weeks of general malaise after recent
hip surgery. CT scan concerning for acute cholecystitis. He has a mild HERNANDEZ, elevated leukocytosis, borderline elevated LFTs and now lipase is > 2000 from within normal limits yesterday concerning for evolving pancreatitis.
Now POD#1 s/p laparoscopic cholecystectomy with IOC. No major post-operative concerns, labs and ERMELINDA outputs reassuring.
-- LFD
-- Pain control: Tylenol and IV Dilaudid PRN, will start oral Oxycodone (take on full stomach with 'allergy' of stomach upset, can use PO Dilaudid if needed, avoid Tramadol with HERNANDEZ)
-- Abx: Zosyn or PO equiv for 4 days post-op
-- Hold Eliquis for 3 days post-op, SQH for DVT
-- GI: Protonix
-- Would monitor in hospital today for dietary tolerance and drain monitoring, possible DC tomorrow
Subjective Data
-
Date of Service: August 11, 2023
No major complaints. Pain is improved. No nausea or vomiting. No fevers.
Objective Data
-
Intake and Output
08/10/23 08/11/23 08/12/23
06:59 06:59 06:59
Intake Total 100 / 100 340 / 340 580 / 580
Output Total 1050 / 1050 800 / 800 500 / 500
Balance -950 / -950 -460 / -460 80 / 80
Intake:
Oral fluids 240 / 240 480 / 480
IV fluids (Total) 100 / 100
Normosol 100 / 100
IV piggybacks 100 / 100 100 / 100
Output:
Drain Output (Total) 100 / 100
Right Abdomen Noé-Brown 100 / 100
Urine, Voided 1050 / 1050 700 / 700 500 / 500
Vital Signs
Temp Pulse Resp BP Pulse Ox
98.6 F 83 20 96/61 98
08/11/23 07:00 08/11/23 07:51 08/11/23 07:00 08/11/23 07:51 08/11/23 07:00
Lab Results
08/11/23 05:09
08/11/23 05:09
Calcium 8.3 mg/dl (8.4-10.2) L 08/11/23 05:09
Total Bilirubin 0.8 mg/dl (0.2-1.3) 08/11/23 05:09
Direct Bilirubin 0.7 mg/dl (0.0-0.4) H 08/10/23 05:16
AST 46 U/L (17-59) 08/11/23 05:09
ALT 39 U/L (0-50) 08/11/23 05:09
Alkaline Phosphatase 134 U/L (38-126) H 08/11/23 05:09
Total Protein 5.1 g/dl (6.3-8.2) L 08/11/23 05:09
Albumin 2.7 g/dl (3.5-5.0) L 08/11/23 05:09
Physical Exam
-
Gen: NAD
Abd: obese, soft, mild tenderness, non-peritoneal, ERMELINDA serous with slight bile stain, no dhruv bile
[2023-08-11] MEDS: MIRALAX 17 GRAMS PO (12:54)
--- NOTE | 2023-08-11 16:06 | W.PN.HOSP.TC ---
Addendum entered and electronically signed by See Kay MD 08/11/23 16:37:
Patient seen and examined
Discussed with resident
Acute gangrenous cholecystitis
Sepsis due to above
Status post laparoscopic cholecystectomy with intraoperative cholangiogram.
Continue IV antibiotics with plan to meropenem transition to Augmentin upon discharge to complete course of therapy
Advance diet as per surgery.
Reintroduce anticoagulation with Eliquis after 3 days postoperatively.
Acute anemia likely can be nation of postoperative and acute illness/sepsis
Hemoglobin trending down to 7.3 with no evidence of acute blood loss given hypotension, CKD will transfuse 1 unit of packed red blood cells and monitor hemoglobin.
Hyponatremia improved while off Lasix.
Cardiovascular/CAD status post CABG/chronic CHF preserved EF.
Has been off Lasix given hypotension, sepsis.
Monitor volume status closely with transfusion.
Plan is to reintroduce Lasix over the next 24 to 48 hours.
Paroxysmal atrial fibrillation.
Continue metoprolol holding for hypotension.
To reintroduce Eliquis as per surgery recommendation.
Increase activity
Incentive spirometry
Original Note:
Today's Communication/Plan
-
1 unit PRBC transfusion
Pain control with Tylenol and oxycodone
Continue Zosyn
Hold Eliquis for 3 days.
Low-fat diet
Plan for discharge tomorrow
Assessment / Plan
Assessment / Plan
ASSESSMENT:
Acute cholecystitis/gangrenous cholecystitis s/p laparoscopic cholecystectomy
Sepsis
Hyponatremia
S/P right MICHI
Anemia due to blood loss from recent surgery
ASCVD
Paroxysmal atrial fibrillation
Chronic heart failure with preserved ejection fraction
PATRIZIA on CPAP
Obesity
PLAN:
1. Acute Cholecystitis s/p laparoscopic cholecystectomy with cholangiogram. POST-OP day 1
Postoperative diagnosis: Gangrenous cholecystitis
Intraoperative cholangiogram report: There is filling of the common bile duct and eventual drainage into the small bowel. No filling defects.
�-Preoperative CT scan shows GB distention with wall thickening and surrounding stranding.� No evident gallstones.
� - Continue IV abx with Zosyn.
� - IV pain control: Tylenol 650mg q6 , Catie 5mg q6 PRN
- Antiemetics : IV Protonix 40 mg
-Eliquis on hold until postop day 3
-Diet : Low-fat diet
-Check wound/drain : ERMELINDA to bulb suction drainage
-Check routine A.M. labs
Lipase today 218
2. Sepsis (vs SIRS), Lactic acid not elevated 1.3, with atypical fluid overload.
-Fluid overloaded with peripheral edema
-Usually with sepsis, the standard of care is high volume fluids, in this case that would be detrimental as patient is fluid overloaded, not hypotensive, perfusing all tissues without lactic acidosis.
-Monitor BP
-Lasix as needed
-follow fluid status closely
3. Hyponatremia, likely hypervolemic hyponatremia
Sodium today-136
�- Likely secondary to increased fluid intake.
- Monitor I/Os and suspect patient will diurese appropriately.
�4. s/p Right MICHI - Revision
�- Healing well.�
- Continue local care.
�- Continue pain control.
�- PT / OT evaluations.
5. Blood Loss Anemia, s/p recent surgery
�- Hemoglobin preoperative: 8.4, Hgb today 7.3
1 unit packed RBC transfusion
6. ASCVD - Stable.� No complaints of chest pain.
�- s/p CABG in the past but patient denies any coronary stents.
� -Metoprolol on hold, blood pressure 96/61.
7. Paroxysmal Atrial Fibrillation - Stable.� In sinus rhythm at present.
� - Hold Eliquis as noted above for probable intervention.
� -Metoprolol on hold, blood pressure 96/61
� - Monitor on tele.
8. Chronic HFpEF
�- Suspect some degree of hypervolemia - likely due to recent increase in intake as noted above.
� -Lasix changed from thrice weekly to daily for now.
� - Follow I/Os, daily weights, etc.
� - Adjust regimen as needed for euvolemia.
9. PATRIZIA on CPAP - chronic
� - Continue usual AutoPAP therapy.
� - Has device from home.
10. Obesity due to excess calories, BMI 39
�- Affects all aspects of care.
� - Encourage healthy diet and increased exercise with goal of weight loss.
DVT Prophylaxis:� SCDs
Code Status:� Full
Anticipated Discharge: Within 24 hours
Subjective/Interval History
-
Date of Service: August 11, 2023
Patient is doing well. Very minimal abdominal pain, no nausea/vomiting, fever/chills, calf pain, chest pain, shortness of breath. Had a bowel movement.
Objective Data
-
Labs:
Laboratory Results
08/11/23
05:09
WBC 16.8 H
Hgb 7.3 L
Hct 22.2 L
Plt Count 355
Sodium 136
Potassium 3.9
Chloride 99
Carbon Dioxide 25
BUN 45 H
Creatinine 1.8 H
Glucose 133 H
Calcium 8.3 L
Total Bilirubin 0.8
AST 46
ALT 39
Alkaline Phosphatase 134 H
Vital Signs:
Vital Signs
Temp Pulse Resp BP Pulse Ox
98.1 F 105 20 129/68 99
08/11/23 11:00 08/11/23 11:00 08/11/23 11:00 08/11/23 11:00 08/11/23 11:00
I&O
08/10/23 08/11/23 08/12/23
06:59 06:59 06:59
Intake Total 100 / 100 340 / 340 580 / 580
Output Total 1050 / 1050 800 / 800 500 / 500
Balance -950 / -950 -460 / -460 80 / 80
Review of Systems
-
All other systems: Reviewed and negative (As per history)
Physical Exam
-
General: Well Developed, Well Nourished and No Apparent Distress
HEENT: Normocephalic and Atraumatic
Respiratory: Clear to Auscultation
Cardiac: Regular Rhythm, S1/S2 and Murmur
GI: Nontender, Normal Bowel Sounds and Other (Incision sites wound healing normally.)
Skin: Warm and Dry
Neuro: Awake, Alert, Oriented and AO x 3
Psych: Calm
--- NOTE | 2023-08-11 16:12 | CM ---
CM reviewed chart
POst op PT/OT requested
Home with VN vs no needs recommended
[facility] referral to [facility] VN sent via Care port and pending
Discharge Disposition- home with VN
[2023-08-11] MEDS: HEPARIN 5000 UNITS SC (17:19)
[2023-08-12] MEDS: TYLENOL 650 MG PO ×2 (00:13→11:15)
[2023-08-12] MEDS: HEPARIN 5000 UNITS SC ×2 (00:13→09:09)
[2023-08-12] MEDS: ZOSYN 50 IV ×3 (00:13→11:15)
[2023-08-12 03:00] VITALS: BP 120/70
--- NOTE | 2023-08-12 05:06 | PTCARENOTE ---
Pt woke up and informed staff that he needed a bed change because he was 'sweating profusely'. Bed sheets and gown soaked. Pt temp 97.4. Pt informed this RN that this also occurred last night. BP 152/82 HR 84. 3am vital signs also stable, temp 97.8.
Pt stated no chills or shakiness and that he is comfortable. Will continue plan of care.
[2023-08-12 06:00] VITALS: BMI 36.7
[2023-08-12] MEDS: TYLENOL PO ×2 (06:03→06:08)
[2023-08-12 06:06] LABS: Blood Urea Nitrogen 53 mg/dl (9-20); Calcium 8.5 mg/dl (8.4-10.2); Carbon Dioxide 26 mmol/L (22-30); Chloride 100 mmol/L (98-107); Estimated Creatinine Clearance 48 ml/min; Glucose 120 mg/dl (70-99); Potassium 3.7 mmol/L (3.5-5.1); Sodium 136 mmol/L (135-145); eGFR 36.36
[2023-08-12 08:11] VITALS: BP 126/73
[2023-08-12] MEDS: TOPROL XL 50 MG PO (09:09)
[2023-08-12] MEDS: PROTONIX 40 MG PO (09:09)
[2023-08-12] MEDS: MIRALAX PO (09:12)
[2023-08-12 09:46] LABS: % Basophils 0.1 % (0-2); % Eosinophils 0.2 % (0-6); % Immature Granulocytes 0.5 % (0-0.5); % Lymphocytes 11.3 % (20.5-51.1); % Monocytes 6.5 % (1.7-9.3); % Neutrophils 81.4 % (42.2-75.2); Absolute Immature Granulocytes 0.1 10^3/uL (0-0.05); Absolute Lymphocytes 1.5 10^3/uL (1.2-3.4); Absolute Monocytes 0.8 10^3/uL (0.1-0.6); Absolute Neutrophils 10.5 10^3/uL (1.4-6.5); Hematocrit 25.3 % (39.0-52.0); Hemoglobin 8.2 g/dL (13.0-18.0); Mean Corp Hgb Conc. 32.4 g/dL (33.0-37.0); Mean Corpuscular Hgb 30.5 pg (27.0-31.0); Mean Corpuscular Volume 94.1 fL (80.0-94.0); Mean Platelet Volume 9.5 fL (7.4-10.4); Nucleated Red Blood Cells % 0 % (-); Platelet Count 418 10^3/uL (130-400); Red Blood Cell Count 2.69 10^6/uL (4.70-6.10); Red Cell Dist. Width 14.7 % (11.5-14.5); White Blood Cell Count 12.9 10^3/uL (4.8-10.8)
[2023-08-12] MEDS: ZOFRAN 4 MG IV (11:15)
[2023-08-12 11:43] VITALS: BP 162/68
--- NOTE | 2023-08-12 11:58 | W.PN.GS2 ---
Today's Communication / Plan
-
OK for DC home
Assessment / Plan
-
Patient is a 63-year-old male with a history of A-fib on Eliquis (last dose was 120 7:24 PM dose) who presents with the 2 to 4-day history of worsening right upper quadrant abdominal pain. In the setting of 2 weeks of general malaise after recent
hip surgery. CT scan concerning for acute cholecystitis. He has a mild HERNANDEZ, elevated leukocytosis, borderline elevated LFTs and now lipase is > 2000 from within normal limits yesterday concerning for evolving pancreatitis.
Now POD2 s/p laparoscopic cholecystectomy with IOC. No major post-operative concerns, labs and ERMELINDA outputs reassuring. Received 1 u PRBC yesterday with approp Hb response.
-- Cont LFD
-- Pain control: Tylenol and IV Dilaudid PRN, will start oral Oxycodone (take on full stomach with 'allergy' of stomach upset, can use PO Dilaudid if needed, avoid Tramadol with HERNANDEZ)
-- Abx: Zosyn or PO equiv for 4 days post-op
-- Hold Eliquis for 3 days post-op, SQH for DVT
-- GI: Protonix
-- OK for DC home from GS standpoint, with drain and abx as above. Restart eliquis Thursday08/14/23
Subjective Data
-
Date of Service: August 12, 2023
Pain has resolved, c/o single self limited epsode of n/v this am he attributes to acidic OJ he drank. The solid breakfast he ate did not come up, only small amount of liquid. Otherwise his only complaint is that he would liek to get home so he can
walk more to facilitate hip rehab
Objective Data
-
Intake and Output
08/11/23 08/12/23 08/13/23
06:59 06:59 06:59
Intake Total 340 / 340 2029
Output Total 800 / 800 1125 / 1125
Balance -460 / -460 905 / 905 -30 -30
Intake:
Oral fluids 240 / 240 1680 / 1680
IV fluids (Total)
Normosol 100 /
IV piggybacks
Blood Product Amount Infused ( 250 / 250
mL)
Packed Rbc Leukoreduced Unit 250 / 250
[id number]
Output:
Drain Output (Total)
Right Abdomen Noé-Brown
Urine, Voided 700 / 700 1100 / 1100
Other:
Number of approximated MODERATE 3
amounts of urine
Vital Signs
Temp Pulse Resp BP Pulse Ox
98.1 F 92 19 162/68 98
08/12/23 11:43 08/12/23 11:43 08/12/23 11:43 08/12/23 11:43 08/12/23 11:43
Lab Results
08/12/23 05:24
08/12/23 05:24
Calcium 8.5 mg/dl (8.4-10.2) 08/12/23 05:24
Total Bilirubin 0.8 mg/dl (0.2-1.3) 08/11/23 05:09
Direct Bilirubin 0.7 mg/dl (0.0-0.4) H 08/10/23 05:16
AST 46 U/L (17-59) 08/11/23 05:09
ALT 39 U/L (0-50) 08/11/23 05:09
Alkaline Phosphatase 134 U/L (38-126) H 08/11/23 05:09
Total Protein 5.1 g/dl (6.3-8.2) L 08/11/23 05:09
Albumin 2.7 g/dl (3.5-5.0) L 08/11/23 05:09
Physical Exam
-
Gen: NAD
Abd: soft, approp ttp, incisions cdi, drain ss (non-bilious)
--- NOTE | 2023-08-12 14:19 | CM ---
Chart reviewed.
Pt accepted by [facility] for home services
CM will cont to follow for home care needs
Anticipate home with home services - [facility]
Fax - [phone]
[2023-08-12 16:15] VITALS: BP 157/65
--- NOTE | 2023-08-12 16:32 | W.PN.HOSP.TC ---
Today's Communication/Plan
-
.
Assessment / Plan
Assessment / Plan
ASSESSMENT:
Acute cholecystitis/gangrenous cholecystitis s/p laparoscopic cholecystectomy
Acute kidney injury
Sepsis
Hyponatremia
S/P right MICHI
Anemia due to blood loss from recent surgery
ASCVD
Paroxysmal atrial fibrillation
Chronic heart failure with preserved ejection fraction
PATRIZIA on CPAP
Obesity
PLAN:
1. Acute Cholecystitis s/p laparoscopic cholecystectomy with cholangiogram. POST-OP day 2
Postoperative diagnosis: Gangrenous cholecystitis
Intraoperative cholangiogram report: There is filling of the common bile duct and eventual drainage into the small bowel. No filling defects.
�-Preoperative CT scan shows GB distention with wall thickening and surrounding stranding.� No evident gallstones.
� - Continue IV abx with Zosyn.
� - IV pain control: Tylenol 650mg q6 , Catie 5mg q6 PRN
- Antiemetics : IV Protonix 40 mg
-Eliquis on hold until postop day 3
-Diet : Low-fat diet
-Check wound/drain : ERMELINDA to bulb suction drainage
-Check routine A.M. labs
2. Acute kidney injury
BUN 53, creatinine 2.0
Patient is on Lasix
possibly pre-renal
2. Sepsis (vs SIRS), Lactic acid not elevated 1.3, with atypical fluid overload.
-Fluid overloaded with peripheral edema
-Usually with sepsis, the standard of care is high volume fluids, in this case that would be detrimental as patient is fluid overloaded, not hypotensive, perfusing all tissues without lactic acidosis.
-Monitor BP
-Lasix as needed
-follow fluid status closely
3. Hyponatremia, likely hypervolemic hyponatremia
Sodium today-136
�- Likely secondary to increased fluid intake.
- Monitor I/Os and suspect patient will diurese appropriately.
�4. s/p Right MICHI - Revision
�- Healing well.�
- Continue local care.
�- Continue pain control.
�- PT / OT evaluations.
5. Blood Loss Anemia, s/p recent surgery
1 unit packed RBC transfusion
Hemoglobin posttransfusion 8.2
6. ASCVD - Stable.� No complaints of chest pain.
�- s/p CABG in the past but patient denies any coronary stents.
� -Metoprolol on hold, blood pressure 96/61.
7. Paroxysmal Atrial Fibrillation - Stable.� In sinus rhythm at present.
� - Hold Eliquis as noted above for probable intervention.
� -Metoprolol on hold, blood pressure 96/61
� - Monitor on tele.
8. Chronic HFpEF
�- Suspect some degree of hypervolemia - likely due to recent increase in intake as noted above.
� -Lasix changed from thrice weekly to daily for now.
� - Follow I/Os, daily weights, etc.
� - Adjust regimen as needed for euvolemia.
9. PATRIZIA on CPAP - chronic
� - Continue usual AutoPAP therapy.
� - Has device from home.
10. Obesity due to excess calories, BMI 39
�- Affects all aspects of care.
� - Encourage healthy diet and increased exercise with goal of weight loss.
DVT Prophylaxis:� SCDs
Code Status:� Full
Anticipated Discharge: Within 24 hours
Subjective/Interval History
-
Date of Service: August 12, 2023
Patient's abdominal pain has improved, except for some mild incisional site pain. No chest pain, shortness of breath, nausea, vomiting, fever/chills. Had a bowel movement.
He mentioned about having an episode of perspiration with sweating profusely midnight yesterday, he he was afebrile at that time.
Objective Data
-
Labs:
Laboratory Results
08/12/23
05:24
WBC 12.9 H
Hgb 8.2 L
Hct 25.3 L
Plt Count 418 H
Sodium 136
Potassium 3.7
Chloride 100
Carbon Dioxide 26
BUN 53 H
Creatinine 2.0 H
Glucose 120 H
Calcium 8.5
Vital Signs:
Vital Signs
Temp Pulse Resp BP Pulse Ox
98.2 F 77 17 157/65 98
08/12/23 16:15 08/12/23 16:15 08/12/23 16:15 08/12/23 16:15 08/12/23 16:15
I&O
08/11/23 08/12/23 08/13/23
06:59 06:59 06:59
Intake Total 340 / 340 2029 / 2029
Output Total 800 / 800 1125 / 1125
Balance -460 / -460 905 / 905 -30 / -30
Review of Systems
-
All other systems: Reviewed and negative (As per history)
Physical Exam
-
General: Well Developed, Well Nourished and No Apparent Distress
HEENT: Normocephalic and Atraumatic
Respiratory: Clear to Auscultation
Cardiac: Regular Rhythm, S1/S2 and Murmur
GI: Nontender, Normal Bowel Sounds and Other (Drain in place)
Musculoskeletal: No Clubbing, No Cyanosis, Edema, Right Lower Extrem and Edema, Left Lower Extrem
Skin: Warm and Dry
Neuro: Awake, Alert, Oriented and AO x 3
--- NOTE | 2023-08-13 09:03 | W.DS.TRANS ---
DC Summary - Appeals Examiner
-
Discharge Instructions:
Discharge Diagnosis/Procedures Acute cholecystitis
Sepsis secondary to above
Acute pancreatitis.
Hypovolemic hyponatremia.
Chronic anemia.
Coronary artery disease status post CABG
Paroxysmal atrial fibrillation on Eliquis prior
to anticoagulation
Chronic CHF preserved EF
Obstructive sleep apnea on CPAP
Obesity with BMI of 39.
Diet Low Cholesterol
Activity No strenuous activity
Driving Restrictions As prior to admission
Bathing Restrictions OK to Shower
Instructions:
Stand-Alone Forms:
Changes to Home Medications: No
Discharge Medications:
DC Medications w/original date entered in [facility] [employer]
apixaban 5 mg tablet (Eliquis) 5 mg PO BID Blood clot prevention/tx 11/06/21
multivitamin with folic acid 400 mcg tablet (Tab-A-Margy) 1 tab PO DAILY Supplement 11/11/21
rosuvastatin 40 mg tablet (Crestor) 40 mg PO DAILY High cholesterol 11/11/21
lisinopril 20 mg tablet 20 mg PO BID #60 tabs 11/14/21
dapagliflozin propanediol 10 mg tablet (Farxiga) 10 mg PO DAILY Heart Failure 12/06/21
sildenafil 100 mg tablet (Viagra) 100 mg PO PRN PRN erectile dysfunction 12/06/21
acetaminophen 500 mg tablet (Tylenol Extra Strength) 1,000 mg PO Q6HPRN PRN mild pain 08/09/23
amlodipine 5 mg tablet 5 mg PO DAILY Blood Pressure 08/09/23
docusate sodium 100 mg capsule 100 mg PO BID Constipation 08/09/23
furosemide 40 mg tablet 40 mg PO QMWF Fluid Retention/Swelling 08/09/23
metoprolol succinate 50 mg tablet,extended release 24 hr 50 mg PO DAILY atrial fibrillation 08/09/23
oxycodone 5 mg tablet 10 mg PO Q4H PRN severe pain 08/09/23
amoxicillin 875 mg-potassium clavulanate 125 mg tablet 1 tab PO Q12 #6 tabs 08/12/23
Home Medication Changes
Pending Results: No
== END 2023-08-12 18:42 | disposition home or self-care (01) | DRG 853 ==
LOC: 3 WEST ACU 05:53
PROVIDERS: Surgery; ADMITTING PHYSICIAN Hospitalist; ATTENDING PHYSICIAN Internal Medicine; CONSULT PHYSICIAN Surgery; EMERGENCY PHYSICIAN Emergency Medicine; FAMILY PHYSICIAN Family Medicine
PROC: BF031ZZ Plain Radiography of Gallbladder and Bile Ducts using Low Osmolar Contrast (ICD-10-PCS; 2023-08-10)
PROC: 0FT44ZZ Resection of Gallbladder, Percutaneous Endoscopic Approach (ICD-10-PCS; 2023-08-10)
PROC: 30233N1 Transfusion of Nonautologous Red Blood Cells into Peripheral Vein, Percutaneous Approach (ICD-10-PCS; 2023-08-11)
DX: A41.9 Sepsis, unspecified organism (principal); K85.90 Acute pancreatitis without necrosis or infection, unspecified; K81.0 Acute cholecystitis; E87.1 Hypo-osmolality and hyponatremia; D62 Acute posthemorrhagic anemia; I13.0 Hypertensive heart and chronic kidney disease with heart failure and stage 1 through stage 4 chronic kidney disease, or unspecified chronic kidney disease; I50.32 Chronic diastolic (congestive) heart failure; N17.9 Acute kidney failure, unspecified; N18.31 Chronic kidney disease, stage 3a; I48.0 Paroxysmal atrial fibrillation; Z79.01 Long term (current) use of anticoagulants; K82.A1 Gangrene of gallbladder in cholecystitis; I25.10 Atherosclerotic heart disease of native coronary artery without angina pectoris; G47.33 Obstructive sleep apnea (adult) (pediatric); E66.09 Other obesity due to excess calories; Z68.39 Body mass index [BMI] 39.0-39.9, adult
CPT/HCPCS: 88304; 74176; 74300; 76000; 80048; 80053; 81003; 81015; 82248; 82962; 83540; 83550; 83605; 83690; 83935; 84300; 84484; 85025; 85027; 86850; 86900; 86901; 86920; 87040; 93005; 96365; 96375; 96376; 97162; 97166; 99285; A4300; P9016

== ENCOUNTER 2024-01-28 06:27 | Day surgery (SDC) | payer BC, SELFPAY ==
[2024-01-28] VITALS (15 sets, daily range): BP systolic 111–195; BP diastolic 63–81; BMI 36.1
[2024-01-28 13:38] LABS: Glucose - Point of Care 101 mg/dl (70-99)
[2024-01-28] MEDS: NORMOSOL-R 1000 IV (13:53)
[2024-01-28] MEDS: TYLENOL 1000 MG PO (13:53)
[2024-01-28 14:17] LABS: Hematocrit 42.6 % (39.0-52.0); Hemoglobin 15.2 g/dL (13.0-18.0); Mean Corp Hgb Conc. 35.7 g/dL (33.0-37.0); Mean Corpuscular Hgb 32.2 pg (27.0-31.0); Mean Corpuscular Volume 90.3 fL (80.0-94.0); Platelet Count 225 10^3/uL (130-400); Red Blood Cell Count 4.72 10^6/uL (4.70-6.10); Red Cell Dist. Width 13.5 % (11.5-14.5); White Blood Cell Count 8.6 10^3/uL (4.8-10.8)
[2024-01-28 15:02] LABS: Glucose - Point of Care 96 mg/dl (70-99)
--- NOTE | 2024-01-28 16:52 | W.IMMPOSTOP ---
Surgical Immed Post Op Note
-
Primary Surgeon: Paul Alberto MD
Assisting Surgeon: None
Pre-op Diagnosis: Umbilical hernia
Post-op Diagnosis: Same
Procedure Performed: robotic umbilical hernia repair with mesh (DEYSI approach)
Anesthesia Type: General
Specimen / Cultures: None
Estimated Blood Loss: Cc
Complications: None
Operative Findings: 1.5 cm umbilical defect containing incarcerated omentum and preperitoneal fat. 11 x 11 cm Bard soft mesh placed in the preperitoneal space.
--- NOTE | 2024-01-28 16:53 | OR.RPT ---
Operative Report
Operative Report
Patient Name: Michael Chaudhry
: 1960
Date of Operation: 01/28/2024
Preoperative Diagnosis: Umbilical hernia
Postoperative Diagnosis: Same
Procedure(s):
Robotic umbilical hernia repair with mesh (DEYSI approach)
Surgeon(s):
Dr. Alberto
[employer](s):
ROMAINE Erickson
Anesthesia: General
Estimated Blood Loss: 3 cc
Urine Output: None
Drains/Lines/Implants:
11 x 11 cm round Bard soft mesh
Specimens:
None
HPI/Surgical Indications:
This is a 64-year-old male who I had previously done a laparoscopic cholecystectomy on, with known umbilical hernia who was seen in my office for a symptomatic umbilical bulge and diagnosed with an umbilical hernia. Risks/Benefits/Alternatives were
discussed at length, and the patient agreed to proceed with surgery.
Findings:
1.5 cm umbilical hernia containing preperitoneal fat, and incarcerated omentum
Procedure Description:
The patient was brought to the Operating Room and placed in the supine position with the arms tucked. IV antibiotics were infused and Venodyne stockings placed. Following uneventful induction of general endotracheal anesthesia, an orogastric tube
were placed. The abdomen was prepped and draped in the usual sterile fashion. The abdomen was entered using a Veress technique which required 1 pass, pneumoperitoneum to 15 mmHg was obtained without difficulty. An 8mm trochar was passed through
the abdominal wall roughly 20 cm laterally from the defect in the left upper quadrant, we then confirmed that no inadvertent injury was made while passing the trocar or Veress needle. We then placed two additional 8 mm ports in the left lower
quadrant. Bilateral tap blocks were performed. The robot was docked. We then introduced our prograsper through the inferior/left hand port and a monopolar scissors through the superior port. We then turned our attention to the hernia which had
incarcerated omentum. This was taken down with electrocautery. We then began taking a flap down roughly 6 cm away from the defect and roughly 12 cm in length taking care to stay in the pretransversalis plane. The preperitoneal fat was taken down
off of the posterior rectus sheath both superior and inferior to the hernia defect such that we were able to get our 'volcano sign'. We then worked on reducing the defect which contained preperitoneal fat and continued our dissection out laterally
for an additional 6 to 7 cm. Once our flap was created we introduced a ruler and a 0 V-Loc 180. The main hernia defect measured 2 cm. The pocket measured 12 x 12 cm. I had my assistant real estate manager cut a 11 x 11 cm piece of Bard soft mesh marked with 0
Vicryl suture at the center, as I closed the umbilical defect. The mesh was then sutured to the posterior rectus sheath in 4 quadrants with 2-0 vircyls to ensure good apposition. A 2-0 Monocryl was introduced which was used to close our flap. A few
small rents in the peritoneum were closed with 2-0 Vicryl [id number]. All sutures were removed. The robot was undocked. The ports were removed under direct visualization and pneumoperitoneum was evacuated. The port sites were closed with
4-0 Monocryl followed by Dermabond. Counts were correct and overall, the patient tolerated the procedure well and was taken to the Recovery Room postoperatively in stable condition.
I was the attending physician and performed the procedure with assistance from the SENIOR BUSINESS CONSULTANT above. I was present for all portions of the case except for skin closure.
Paul Alberto MD
[2024-01-28] MEDS: DILAUDID 0.25 MG IV ×2 (17:00→17:27)
[2024-01-28] MEDS: APRESOLINE 5 MG IV (17:22)
--- NOTE | 2024-01-28 17:31 | SUR.PHASEI ---
1650: MD Cooper made aware about Pt BP, request to repeate BP in a few minutes ~20 minutes post-op and treat with 5mg of hyrdalizine per MAR for SBP >170. Pt. BP remained greater then 170 despite being treated for ABD. Blood pressure responded with
hydralazine
== END 2024-01-28 18:47 | disposition home or self-care (01) ==
LOC: SDS 06:27
PROVIDERS: Anesthesiology; ATTENDING PHYSICIAN Surgery
DX: K42.9 Umbilical hernia without obstruction or gangrene (principal)
CPT/HCPCS: 49592; 82962; 85027; C1781

== ENCOUNTER → 2024-03-01 15:19 | Outpatient (REF) | payer BC, SELFPAY | LOC: HWRCS 15:19 | PROVIDERS: ATTENDING PHYSICIAN Internal Medicine Cardiovascular Disease; FAMILY PHYSICIAN Family Medicine | DX: I34.0 Nonrheumatic mitral (valve) insufficiency (principal) | CPT/HCPCS: 93306 ==

== ENCOUNTER 2024-05-18 12:52 | Inpatient (IN) | payer BC, MEDICARE, SELFPAY ==
[2024-05-18] VITALS (23 sets, daily range): BP systolic 122–195; BP diastolic 68–87; PULSE 2–90; BMI 39.1; BMI 43.6
--- NOTE | 2024-05-18 08:24 | EDRN ---
the pt was received from triage into ED Bed #3, the pt was placed on the monitor and this RN saw that the pts Sp02 was 85% on RA and the pt was noticeably short of breath, this RN placed the pt on 6L NC and Sp02 came up to 96%, this RN notified the
provider Dr. Bañuelos that the pt was placed on 02, Dr. Bañuelos currently at the pts bedside speaking to the pt and the pts , the pt is hypertensive at 177/77 (107), NSR in the 90's, PIV placed and labs drawn and sent, the pt is resting in stretcher in
the lowest position, side rails up x2, call nieves within reach, HOB elevated, will continue to monitor the pt closely
--- NOTE | 2024-05-18 08:30 | ED.GENMED ---
History of Present Illness
General
Chief Complaint: Abdominal Pain
Time Seen by Provider: 05/18/24 08:21
History of Present Illness
History of Present Illness:
Patient is a 64-year-old male with history of CAD with stents/CABG, A-fib on Eliquis, HFpEF, CKD presenting to the emergency department shortness of breath and abdominal pain. Patient states that he did recently see his doubler helper had an increase
in his furosemide as he noticed that he did have more body wide swelling. He also states for the past few days has been having diarrhea as well as abdominal pain. He did use his CPAP and noticed that he was more bloated today. He does state that
he was on antibiotic so that was in March for pneumonia. No blood in the stool. No nausea or vomiting. No chest pain. No fevers. He does feel better from the pneumonia standpoint.
Past History
Past History
ED Past Medical History: Arrthythmia (Atrial fib), CAD, HTN, Hypercholesterolemia and Other (Kidney stones)
ED Past Surgical History: Cardiac (2011 CABG) and Orthopedic (Left knee replacement. Right hip replacement)
Social History
Tobacco: Non-smoker
Alcohol: Occasional
Drug: None
Personal:
Living: alone
Phy Exam
Physical Exam
Physical Exam:
GENERAL: in no acute distress
HEENT: normocephalic, extraocular movements intact, moist oral mucosa
NECK: normal inspection
RESPIRATORY: Moderate respiratory distress, increased work of breathing crackles at bases
CARDIOVASCULAR: regular rate and rhythm
ABDOMEN/: soft, non-distended, diffusely tender, no rebound or guarding
EXTREMITIES: non-tender, mild edema bilaterally
NEUROLOGIC: awake and alert, moves all extremities
SKIN: warm
Sepsis
Sepsis Screening
Sepsis Assessment: Sepsis
Sepsis Screen
Sepsis Screen: Sepsis
Date: 05/18/24
Time: 11:22
Course
Orders/Labs/Results
Orders:
Orders
11/06/24 08:13
EKG [Electrocardiogram (*1)] Urgent
Reason for Study: Shortness of Breath
05/18/24 08:14
EKG- Treatment ONCE
05/18/24 08:15
COVID-19 Antigen Urgent
Source: Nasal Swab
Complete Blood Count/With Diff Urgent
Comprehensive Metabolic Panel Urgent
NT-proBNP Urgent
Troponin I Urgent
Influenza A+B Rapid Molecular Urgent
[facility]KE Source: Nasal Swab
Specimen Description:
05/18/24 08:21
CT Abd/pelvis W Iv Cont Urgent
Comment:
Reason For Exam: abd pain
05/18/24 08:51
CXR [CR Chest Portable - 1 View] Urgent
Comment:
Reason For Exam: shortness of breath
Reason Study Needs to be Portable: Patient Unstable
05/18/24 08:52
Ipratropium/Albuterol Sulfate [Duoneb] 3 ml INH R NOW ONE
Bipap [RESP] Urgent
Patient to use own unit?: No
Inspiratory Pressure (cm H2O): 15
Expiratory Pressure (cm H2O): 5
05/18/24 10:29
Echo 2D MMode Color/Doppler Routine
Reason for Study: CHF, SOB
05/18/24 10:42
Heart Failure Dietary Consult [HF DIETARY CONSULT] Routine
Heart Failure Educator Consult [HF EDUCATOR CONSULT] Routine
Comment:
05/18/24 10:43
I/O [Intake/ Output] As Directed
Frequency: Per unit guidelines
Weight As Directed
Frequency: Daily
05/18/24 11:00
Furosemide [Lasix] 40 mg IV BID AT 0800,1600
05/18/24 11:15
Troponin I Routine
05/18/24 11:17
Cefepime HCl [Maxipime] 2,000 mg IV NOW STA
Vancomycin [Vancocin] 2,000 mg 0.9% Sodium Chloride 500 ml [Nss] 500 ml IV NOW
05/18/24 14:00
EKG [Electrocardiogram (*1)] Routine
Reason for Study: Shortness of Breath
Troponin I Q6H
05/18/24 20:00
Troponin I Q6H
05/19/24 06:00
BMP [Basic Metabolic Panel] IN AM
05/20/24 06:00
BMP [Basic Metabolic Panel] IN AM
05/21/24 06:00
BMP [Basic Metabolic Panel] IN AM
Abnormal Lab Results
05/18/24
08:15
WBC 16.4 H 10^3/uL
(4.8-10.8)
RBC 3.58 L 10^6/uL
(4.70-6.10)
Hgb 10.9 L g/dL
(13.0-18.0)
Hct 33.0 L %
(39.0-52.0)
RDW 15.1 H %
(11.5-14.5)
Abs Immat Gran (auto) 0.1 H 10^3/uL
(0-0.05)
Absolute Neuts (auto) 14.5 H 10^3/uL
(1.4-6.5)
Absolute Lymphs (auto) 0.7 L 10^3/uL
(1.2-3.4)
Absolute Monos (auto) 1.0 H 10^3/uL
(0.1-0.6)
Neutrophils % 88.4 H %
(42.2-75.2)
Lymphocytes % 4.5 L %
(20.5-51.1)
Chloride 109 H mmol/L
(98-107)
BUN 23 H mg/dl
(9-20)
Glucose 128 H mg/dl
(70-99)
Total Bilirubin 1.5 H mg/dl
(0.2-1.3)
Alkaline Phosphatase 265 H U/L
(38-126)
Troponin I 0.147 H* ng/ml
05/18/24 08:15
05/18/24 08:15
Vital Signs
Initial and Last Documented VS:
Initial Vital Signs
Temp Pulse Resp BP Pulse Ox
99.4 F 107 22 195/82 91
05/18/24 07:53 05/18/24 07:53 05/18/24 07:53 05/18/24 07:53 05/18/24 07:53
Last Documented Vital Signs
Temp Pulse Resp BP Pulse Ox
99.1 F 98 19 161/72 95
05/18/24 08:20 05/18/24 11:03 05/18/24 10:14 05/18/24 11:03 05/18/24 10:14
MDM/Problems Addressed
Differential Diagnosis Includes:
Patient is a 64-year-old man with history of A-fib on Eliquis, CAD, HFpEF presenting to the emergency department with shortness of breath and abdominal pain with diarrhea. Vitals here notable for a pulse ox of 91% on room air so he was placed on
nasal cannula. Exam does show a man who is in moderate respiratory distress with crackles and increased work of breathing. His abdominal exam does show diffuse tenderness. Differential clues of CHF exacerbation versus viral enteritis versus
diverticulitis versus pneumonia. Considered PE though less likely as patient is compliant with his Eliquis. Will check blood work EKG chest x-ray and CT scan of the abdomen. Patient will benefit from BiPAP given his work of breathing so I did
discuss with respiratory therapy.
*Critical Care Note
Total Time (30-74mins, 75-104mins- exclusive of procedures): 35
comment:
Critical care statement: A total of 35 minutes of critical care time was provided for this patient. This includes management of unstable vital signs, evaluation of the patient at bedside, reviewing the patient's pertinent medical records, ordering
and reviewing studies, arranging urgent treatment with development of a management plan, evaluating patient's response to treatment, frequent reassessment, and discussion with consultants. This time was separate from time utilized to perform the
aforementioned documented procedures.
Update Note
Update Note:
Ongoing reevaluation patient does state that he feels much better with the BiPAP. His work of breathing has improved. Blood work is notable for leukocytosis. I did receive a critical about patient's troponin. It is elevated along with elevated
BNP. He does not have any chest pain and EKG is nonischemic so we will obtain delta troponin. I did discuss with cardiology who is in agreement.
Chest x-ray per my interpretation with signs of pneumonia with congestion. We did attempt to take patient off BiPAP given the pneumonia however he was unable to tolerate the mid flow nasal cannula as he ultimately was placed back on BiPAP.
CT scan negative for any acute abnormality. Will treat his pneumonia with vancomycin and cefepime given that he was on multiple rounds of antibiotics outpatient. Discussed with hospitalist who accepted patient for admission.
ED Attending Note
-
Portions of this chart may have been created with voice recognition software.� Occasional wrong word or��sound alike� substitutions may have occurred due to the inherent limitations of voice recognition software.
Discharge Plan
Departure
Patient Disposition: Admit
Date of Disposition: 05/18/24
Time of Disposition: 11:19
Presentation/result/management discussed w/ accepting MD/DO: Hospitalist
Discharge Problem:
Pneumonia, Pulmonary edema
Prescriptions:
No Action
Eliquis 5 MG tablet
5 mg PO BID
Patient Comments:
rosuvastatin [Crestor] 40 MG tablet
40 mg PO QPM
dapagliflozin propanediol [Farxiga] 10 MG tablet
10 mg PO DAILY
furosemide 40 MG tablet
40 mg PO MOWEFR
metoprolol succinate 50 mg Tablet Extended Release 24 Hr
100 mg PO DAILY
amlodipine 5 mg Tablet
5 mg PO DAILY
multivitamin Tablet
1 tab PO DAILY
hydralazine 25 mg Tablet
25 mg PO BID
acetaminophen [acetaminophen] 325 mg tablet
650 mg PO Q6HPRN PRN (Reason: mild pain) Qty: 14 0RF
tiotropium bromide [Spiriva with HandiHaler] 18 mcg Capsule, W/Inhalation Device
1 cap INHALATION R DAILY
Referrals:
Yovani Rodriguez MD [Family Provider] -
Interventions
Interventions:
*Risk Screen - Suicide Last Done: 05/18/24 08:20
*General Assessment Last Done: 05/18/24 08:20
*Neglect/Abuse Screening Last Done: 05/18/24 08:20
ED- Fall Risk Assessment Last Done: 05/18/24 08:20
*ED COVID-19 Vaccine History Last Done: 05/18/24 07:53
LE-Kcamei-Qgzkufyheq Assessment Last Done: 05/18/24 08:20
Discharge Date and Time
Print Language: LUXEMBOURGISH
--- NOTE | 2024-05-18 08:36 | EDRN ---
per Dr. Bañuelos, this RN notified respiratory that the pt needs to be placed on Bipap for WOB, the pt is currently still on 6L NC and Sp02 is 96%, awaiting for respiratory to come to the pts bedside
[2024-05-18 08:37] LABS: % Basophils 0.3 % (0-2); % Eosinophils 0.4 % (0-6); % Immature Granulocytes 0.4 % (0-0.5); % Lymphocytes 4.5 % (20.5-51.1); % Neutrophils 88.4 % (42.2-75.2); Absolute Basophils 0.1 10^3/uL (0-0.2); Absolute Eosinophils 0.1 10^3/uL (0-0.7); Absolute Immature Granulocytes 0.1 10^3/uL (0-0.05); Absolute Lymphocytes 0.7 10^3/uL (1.2-3.4); Absolute Neutrophils 14.5 10^3/uL (1.4-6.5); Hemoglobin 10.9 g/dL (13.0-18.0); Mean Corpuscular Hgb 30.4 pg (27.0-31.0); Mean Corpuscular Volume 92.2 fL (80.0-94.0); Mean Platelet Volume 9.5 fL (7.4-10.4); Nucleated Red Blood Cells % 0 % (-); Platelet Count 196 10^3/uL (130-400); Red Blood Cell Count 3.58 10^6/uL (4.70-6.10); Red Cell Dist. Width 15.1 % (11.5-14.5); White Blood Cell Count 16.4 10^3/uL (4.8-10.8)
[2024-05-18 08:41] LABS: COVID-19 Antigen Negative (Negative)
[2024-05-18 08:46] LABS: ALT (SGPT) 23 U/L (0-50); AST (SGOT) 26 U/L (17-59); Albumin 3.9 g/dl (3.5-5.0); Alkaline Phosphatase 265 U/L (38-126); Blood Urea Nitrogen 23 mg/dl (9-20); Calcium 9.4 mg/dl (8.4-10.2); Carbon Dioxide 22 mmol/L (22-30); Chloride 109 mmol/L (98-107); Estimated Creatinine Clearance 110 ml/min; Glucose 128 mg/dl (70-99); Potassium 4.4 mmol/L (3.5-5.1); Sodium 142 mmol/L (135-145); Total Bilirubin 1.5 mg/dl (0.2-1.3); Total Protein 6.3 g/dl (6.3-8.2); eGFR > 60.00
--- NOTE | 2024-05-18 08:48 | EDRN ---
respiratory currently at the pts bedside and is placing the pt on Bipap 15/5
[2024-05-18 08:55] LABS: NT-proBNP 3600 pg/ml; Troponin I 0.147 ng/ml
--- NOTE | 2024-05-18 09:11 | EDRN ---
the pt is resting in stretcher in the lowest position, side rails up x2, call nieves within reach, HOB elevated, no s/s of distress, the pt is currently still on Bipap and Sp02 is 96-97%, the pt states to this RN, 'I feel much better with this on i
feel like i can breathe', VS WNL, will continue to monitor the pt closely
[2024-05-18] MEDS: DUONEB 3 ML INH (09:32)
--- NOTE | 2024-05-18 09:39 | RESPNOTE ---
Before placing patient on bipap noticed that patient has some breakdown on his nose; pt informed this TAXI PROPRIETOR that he wears CPAP at home. Placed a piece of duoderm over the spot and will change out mask when able to under the nose mask.
--- NOTE | 2024-05-18 09:56 | CON.CAR ---
Addendum entered and electronically signed by Rj Parker MD 05/18/24 13:43:
I saw and examined the patient.
The SUPERVISOR [employer]'s note was reviewed and I agree with the note.
Comment:
Acute on chronic HFpEF
- Precipitant may have been diet/fluid/Na+ related. Doubt acute ischemia or valve issue given clinical hx and echo
- Continue SGLT2-I
- Will consider adding MRA at low dose prior to discharge
- For now will avoid ARB/ARNI given prior HERNANDEZ with JO-ANN-I, may try to add low dose prior to discharge
- I told him given his CAD, HF, and obesity I think he is an excellent for GLP1 agonist kelly if he cannot continue to lose weight to a BMI of less than 27 (SELECT trial and STEP-HFpEF�trial)
- Will need more education and will need serial BMP as outpatient
Imaging read as pneumonia
- I will not be surprised if all infiltrates resolve quickly with diuresis
Hx of HERNANDEZ with JO-ANN-I. Cr is 0.9 today and we may need to accept some worsening with diuresis
- Perhaps CKD is more related to a cardiorenal state precipitated by needed diuresis
HTN
CAD, CABG 2011
Obesity, BMI 39, has lost a good amount of weight.
Hx of persistent AFib, ablation 11/2021, no recurrenc of AFib, at that time LA pressure was normal
Original Note:
Consultation
Consultation Request
Date/Time Consultation Requested: 05/18/24 0930
Date/Time Consultation Performed: 05/18/24 1000
Requesting Provider: Sarmad Alanis
Performing Provider: Tiffanie STANTON for Dr. Parker
Reason for Consultation: SOB, CHF
Medical History
-
Chief Complaint: SOB, abdominal pain
History of Present Illness:
64 y/o male with CAD with CABG 2011, AFIB s/p fib/flutter ablation 2021, HFpEF, PATRIZIA on CPAP, obesity, hx CKD3A (per most recent nephro noted), and hypertension who is here for evaluation of SOB over the past 2-3 days with associated abdominal
discomfort (tender to palpation, worse with laying) and bloating. He has had diarrhea as well. No CP. He reports orthopnea, PND, productive cough, and chills. He did have a respiratory infection in March and was treated with antibiotics and
steroids per report. Otherwise, he had a mechanical fall recently and sustained swelling and ecchymosis to his LLE and was ordered a diuretic, which helped with the swelling (10 day course, in addition to his usual dosing- he thinks it was bumex).
He has been away recently and has likely had more sodium and fluid he thinks. He reports his dry weight at 250 lbs and is currently 279 lbs in ER! Weight at OV 2 months ago was 261 lbs. He does not check daily weights. He was on bipap and switched
to O2 by AL. He has increased WOB during my assessment with him. CXR suggestive of PNA and excess volume. Elevated WBC is noted. Elevated trop is noted, but no CP or EKG changes.
Past Medical History
Past Medical History: Arrhythmias, CAD, CHF and HTN
Social History
Tobacco: Non-Smoker
Alcohol: Occasional
Family History
Family History: Other (dad CHF)
Allergies / Home Medications
Allergy/AdvReac Type Severity Reaction Status Date / Time
chlorthalidone Allergy Nausea Verified 05/18/24 08:00
pollen extracts Allergy coughing, Verified 05/18/24 08:00
wheezing,
sneezing
oxycodone HCl [From Percocet] AdvReac upset Verified 05/18/24 08:00
stomach
�Medication �Instructions �Recorded �Confirmed �Type
apixaban 5 mg tablet (Eliquis) 5 mg PO BID Blood clot 11/06/21 05/18/24 History
prevention/tx
rosuvastatin 40 mg tablet (Crestor) 40 mg PO QPM High cholesterol 11/11/21 05/18/24 History
dapagliflozin propanediol 10 mg 10 mg PO DAILY Heart Failure 12/06/21 05/18/24 History
tablet (Farxiga)
amlodipine 5 mg tablet 5 mg PO DAILY Blood Pressure 08/09/23 05/18/24 History
furosemide 40 mg tablet 40 mg PO MOWEFR Fluid 08/09/23 05/18/24 History
Retention/Swelling
metoprolol succinate 50 mg 100 mg PO DAILY atrial fibrillation 08/09/23 05/18/24 History
tablet,extended release 24 hr
hydralazine 25 mg tablet 25 mg PO BID Blood Pressure 01/26/24 05/18/24 History
multivitamin 1 tab PO DAILY Supplement 01/26/24 05/18/24 History
acetaminophen 325 mg tablet 650 mg (2 x 325 mg) PO Q6HPRN PRN 01/28/24 05/18/24 Rx
mild pain #14 tabs
tiotropium bromide 18 mcg capsule 1 cap inhalation R DAILY 05/18/24 05/18/24 History
with inhalation device (Spiriva Lung/Breathing Issues
with HandiHaler)
Review of Systems
-
History Source: Patient
All other systems: Negative unless noted
Constitutional: Weight Gain and Chills
Respiratory: Cough and Trouble Breathing
Abdomen/GI: Abdominal Pain, Diarrhea and Other (bloating)
Musculoskeletal: Edema
Physical Exam
Vital Signs
Temp Pulse Resp BP Pulse Ox
99.1 F 101 16 163/73 97
05/18/24 08:20 05/18/24 09:14 05/18/24 09:14 05/18/24 09:14 05/18/24 09:14
Lab Results
05/18/24 08:15
05/18/24 08:15
Troponin I 0.147 ng/ml H* 05/18/24 08:15
Moy-D-Qulgwcfnrtn Pept 3600 pg/ml 05/18/24 08:15
Physical Exam
General: Well Developed
HEENT: Normocephalic and Anicteric
Respiratory: Wheezes, Crackles, Rhonchi and Other (on O2 by NC, mildly increased WOB)
Cardiac: Regular Rhythm and Peripheral Edema (moderate LLE edema, mild RLE edema (LLE edema from fall))
Musculoskeletal: Edema
Skin: Warm and Dry
Neuro: AO x 3
Psych: Calm
Impression / Plan
-
SOB:
-likely multifactorial with respiratory infection (elevated WBC, chills, CXR with evidence for PNA, productive cough) and bvwqd-ni-cynvlcw HFpEF (weight gain, orthopnea, PND, edema, bloating)
-treatment of suspected PNA per IM, CHF as below
Fbghw-ie-lkqunqd HFpEF:
-patient is volume overloaded and I will order IV Lasix, which requires intensive monitoring
-heart failure education
-continue Farxiga
-when diet is ordered, should be low sodium/48 oz fluid restriction
Abnormal troponin:
-suspect acute non-ischemic myocardial injury in setting of CHF and acute illness with PNA
-trend trops, check echo with contrast
-no CP or EKG changes
CAD with hx CABG:
-no CP
-continue
HTN:
-on multiple medications (CCB, hydralazine, metoprolol)- follows with nephro- CKD3A as OP, and intermittent hyperkalemia in past
-monitor with diuresis
Obesity:
-will benefit from weight loss moving forward
PAF:
-stable in SR
-continue Eliquis
Data Reviewed
-
EKG: Tracing Personally Visualized and interpreted (EKG NSR)
Radiology: Report Reviewed by me (Bilateral pneumonia and probable superimposed pulmonary vascular congestion.)
Medical Tests (Nuc Med, Echo etc): Report Reviewed by me (eCHO 03/01/24: Normal LV size and function with no regional wall motion abnormality. LVEF is 55 to 60% by visual estimation. Mild concentric LVH. Normal right ventricular size and function.
Mild mitral regurgitation.)
Labs: Labs Reviewed by me
--- NOTE | 2024-05-18 09:59 | EDRN ---
the pt is currently still hypertensive, Dr. Bañuelos notified, the pt is currently still resting in stretcher sleeping, the stretcher is in the lowest position, side rails up x2, call nieves within reach, HOB elevated, HOB elevated, no s/s of distress,
the pt is currently still on Bipap 15/5 5L Sp02 95%, the pt is Sinus Tachycardic at 101, will continue to monitor the pt closely
--- NOTE | 2024-05-18 10:17 | EDRN ---
per Dr. Bañuelos, due to the pt having b/l PNA, the provider wants the pt on high flow, per respiratory the pt will be started on midflow, respiratory currently at the pts bedside placing the pt on midflow
--- NOTE | 2024-05-18 10:22 | EDRN ---
respiratory was at the bedside and placed the pt on 6L Midflow, the pt stated that he was 'extremely short of breath' and was tachypnic and WOB was increased, respiratory placed the pt back on Bipap and Dr. Bañuelos was notified, the pt appears
comfortable on Bipap 15/, Sp02 96%, will continue to monitor the pt closely
--- NOTE | 2024-05-18 10:25 | RESPNOTE ---
Tried pt off of the bipap and placed on 6L midflow NC; after approx 10 minutes pt felt increased shortness of breath again and requesting to go back on bipap. placed pt back on with same settings 24/11 with 5L bled in. pulse ox 96%.
[2024-05-18] MEDS: LASIX 40 MG IV ×2 (11:03→16:39)
[2024-05-18] MEDS: MAXIPIME 2000 MG IV (11:22)
--- NOTE | 2024-05-18 11:29 | EDRN ---
second Troponin drawn and sent, echo at the pts bedside
[2024-05-18 12:00] LABS: Troponin I 0.167 ng/ml
--- NOTE | 2024-05-18 12:16 | W.PN.UPDATE ---
Update Note
Progress Note Update
I personally performed a history and physical exam of the patient and discussed management with the resident. I reviewed the resident's note and agree with the documented findings and plan of care HPI/CC except katia in my documentation
64-year-old pleasant male came to the ER with shortness of breath and abdominal discomfort and bloating. He also had some diarrhea last night. He does have a productive cough had some greenish sputum last night. He called his ( They dot live
together ) and asked her to bring him to ER
Patient was treated with antibiotics in March for some respiratory infection.
He was in [facility] and sustained a fall, developed ecchymosis of the left leg. He called his PCP on a Zoom call and was treated with what he thinks is a week water pill and also steroids 2 weeks later he was given another water pill also to
decrease edema. This was in April. He has not been able to go to the gym since March. He also admitted to not able to watch diet while away. He does not weigh himself every single day but thinks that his dry weight is about to 50 pounds
and he must of gained about 10 pounds.. Noticed bilateral lower extremity edema. His normal CPAP setting is 8.5 cm of water but he has lately been seeing the pressure go up to 11 cm of water at night , He saw yesterday . Despite
bleeding and ecchymosis pt did not miss any doses of Eliquis. He did not take a dose this am. He had felt some chills no fever. ABd pain in the epigastric area 02/19 , went away in the ER after he started diuresing. Pt will find out the meds PCP
used in April from calling [facility]. He does not work. 1 bottle of wine every weekend. Does not drink during weekdays
Chest x-ray reviewed by me-bilateral infiltrates and fluid-pulmonary edema
CT abdomen and pelvis with IV contrast-no significant acute abnormality. Mild splenomegaly. Severe right basilar pneumonia. Small bilateral pleural effusions.
Echo 03/01/2024-normal LV size and function. EF 55 to 60%. Mild concentric LVH. Normal RV size and function. Mild MR
EKG reviewed by me-sinus rhythm no ischemia
Patient Able to communicate awake and alert and oriented
On BiPAP
Cardiovascular system S1-S2 appreciated, short of Circon at apex
Chest rales noted mostly on the right side
Abdomen soft no tenderness noted epigastric area
Left lower extremity healing ecchymosis all over the leg from mid thigh lower down. Increased temperature
Mild redness just above the ankle not related to ecchymosis
Bilateral pedal edema
# Acute respiratory failure
Shortness of breath on admission
Admit to IMU
On BIPAP, wean as tolerated
Likely multifactorial secondary to CHF and also pneumonia
# Pneumonia-COVID serology negative
Treat with cefepime and Zithromax
Discontinue vancomycin once MRSA screen is back and negative
Sputum cultures if possible
# Acute on chronic HFpEF
Weight up to 279 pounds in the ER. ER weight not reliable one stretcher and one
Says he gained 10 lbs and he is normally 250 pounds.
proBNP 3600
Continue Farxiga, Lasix, metoprolol
Intake output charting, daily weights
CHF Education
# Questionable cellulitis of left lower extremity with slightly increased warmth and redness just above the ankle along with ecchymosis-antibiotics should cover. Follow clinically
# Trauma of the knee with pain and swelling-check x-rays
# Elevated troponin-type later at present troponin-Possible nonischemic myocardial injury secondary to CHF
# Coronary disease with history of CABG
# Paroxysmal atrial fibrillation-history of ablation 2021 currently in sinus rhythm continue Eliquis and metoprolol
# Hypertension on Amlodipine 5 Mg, Hydralazine 20 Mg twice daily, Metoprolol 100 mg daily as outpatient- Continue
# Hyperglycemia-check hemoglobin A1c
# Hyperlipidemia-continue statin
# CKD stage unclear-follows with nephrology as outpatient
# Anemia-likely secondary to acute blood loss and ecchymosis on the left leg secondary to trauma, but check iron studies
# Sleep apnea-continue CPAP once weaned off of BiPAP -normally uses a pressure of 8.5 cm of water
# Obesity with a BMI of 39-weight loss is needed
# Arthritis with multiple joint arthroplasty
# DVT prophylaxis-Eliquis
# Full code
Discussed with at bedside
Discussed with ER
Discussed with cardiology
Time spent over 76 min
Part of this note was created using voice recognition system. Occasional wrong word or��sound alike� substitutions may have inadvertently occurred due to the inherent limitations of voice recognition software. If noted kindly bring it to my
attention for correction.
[2024-05-18] MEDS: VANCOCIN 540 MG IV (12:59)
--- NOTE | 2024-05-18 13:04 | EDRN ---
hospitalist currently at the pts bedside speaking with the pt and the pts , Elie was received from pharmacy, Vancomycin was hung and is currently infusing, the pt is resting in stretcher in the lowest position, side rails up x2, call nieves
within reach, HOB elevated, no s/s of distress, no c/o chest pain, no c/o SOB, the pt is currently in NSR in the 90's, last BP 167/87 (109), the pt is currently still on Bipap 15/5 5L Sp02 100%, no complaints offered from the pt at this time, will
continue to monitor the pt closely
[2024-05-18 13:06] LABS: Iron 37 ug/dl (49-181)
--- NOTE | 2024-05-18 13:12 | EDRN ---
this RN called the receiving IMU nurse Torrie RUFFIN and gave verbal report
--- NOTE | 2024-05-18 13:13 | EDRN ---
this RN also tubed paper report up to the receiving IMU nurse
[2024-05-18 13:16] LABS: Percent Saturation 11 % (20-50); Total Iron Binding Capacity 318 ug/dl (261-462)
--- NOTE | 2024-05-18 13:30 | PHA.VAN.IN ---
Assessment
- Assessment
Renal Function: Appears similar to baseline
Concomitant Antimicrobials: cefepime, azithromycin
AUC Dosing Plan
- Dosing Variables
Dosing Weight (kg): 127
Dosing CrCl (ml/min): 110
Vd coefficient (L/kg): 0.6
- Empiric Dosing
Initial / Loading Dose: 2000mg - 05/18 12:59
Maintenance Regimen: Vanc 1500mg Q12H starting 05/19 0600
Estimated AUC (mcg*h/mL): 441
Estimated Peak (mcg*h/mL): 28.8
Estimated Trough (mcg/ml): 10.6
Estimated Half Life (H): 7.2
- Monitoring
No levels ordered at this time: consider levels in next few days
MRSA Screen: Ordered per protocol
Pharmacokinetics Vancomycin I
- -
Patient Age: 64
Patient Sex: Male
Vancomycin Day #: 1
Indication: Pulmonary/Respiratory
Requesting Provider: Dr. Sandoval (resident)
Pertinent Antimicrobial Allergies:
no pertinent antibiotic allergies
Height / Weight:
Height 5 ft 11 in
Actual Weight 127.1 kg
Pertinent Past Medical History: BMI ~39
- Vital Signs / Lab Results
Temp Pulse Resp BP Pulse Ox
99.1 F 92 13 167/87 100
05/18/24 08:20 05/18/24 13:15 05/18/24 13:15 05/18/24 13:15 05/18/24 13:15
Lab Results - Hematology
05/18/24
08:15
WBC 16.4 H
Lab Results - Chemistry
05/18/24
08:15
BUN 23 H
Creatinine 0.9
Estimated Creat Clear 110
Albumin 3.9
Microbiology Results
05/18/24 08:15 Influenza Types A & B (CARMEN) - Final
Nasal Swab Negative for Influenza A & B, NAAT
Negative results must be combined with clinical observations
and patient history.
Nucleic Acid Amplification test (NAAT)performed on the
[employer] [facility] platform.
--- NOTE | 2024-05-18 13:42 | EDRN ---
respiratory came to the pts bedside to assist with taking the pt up to IMU, respiratory switched the pt to Midflow during transport to see how the pt does on Midflow
[2024-05-18 14:00] LABS: Ferritin 86.3 ng/ml (17.9-464.0)
[2024-05-18 14:08] LABS: Glycohemoglobin (HgbA1c) 4.8 % (4.0-5.6)
[2024-05-18 14:14] LABS: Vitamin B12 550 pg/ml (239-931)
--- NOTE | 2024-05-18 14:30 | HPS.HSE ---
Addendum entered and electronically signed by Jimmy Randolph MD 05/18/24 17:17:
see separate note from same day
Original Note:
Family Physician
-
Family Physician: Yovani Rodriguez
Chief Complaint
-
Shortness of breath
History of Present Illness
Patient is a 64-year-old man with PMH of paroxysmal A-fib (on Eliquis), HFpEF, CAD (triple-vessel with stents/CABG), recovered CKD stage IIIb, who presented to ED on 05/18/2024 with worsening SOB and epigastric pain. He also reports 1 episode of
diarrhea last night, bloating with the abdominal pain. 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
he would need to be taking it every day. He also reports that was on antibiotics for pneumonia in March and recently had a mechanical fall about 1 month ago with right knee swelling, ecchymosis and joint pain. He reports chills 3 days ago, and
again last night but denies chest pain, fever, palpitations, nausea or vomiting.
Medical History
Past Medical History
Past Medical History: Reports Arrhythmia (Atrial fibrillation), CAD, HTN and Hypercholesterolemia
Past Surgical History: Reports Cardiac (CABG 2011), Cholecystectomy and Orthopedic (Left knee replacement, right knee replacement)
Social History
Tobacco: Non-smoker
Alcohol: Occasional
Drug: None
Personal:
Living: Alone
Employment: Retired
Family History
Family History: Other (Mother: CAD, father: Alcoholic)
Allergies / Home Medications
Allergies reflects when Allergies were last updated in [facility].
Home Medications with original date entered in [facility]
Allergy/Medication List:
Allergies
Allergy/AdvReac Type Severity Reaction Status Date / Time
chlorthalidone Allergy Nausea Verified 05/18/24 08:00
pollen extracts Allergy coughing, Verified 05/18/24 08:00
wheezing,
sneezing
oxycodone HCl [From Percocet] AdvReac upset Verified 05/18/24 08:00
stomach
Home Medications
apixaban 5 mg tablet (Eliquis) 5 mg PO BID Blood clot prevention/tx 11/06/21
rosuvastatin 40 mg tablet (Crestor) 40 mg PO QPM High cholesterol 11/11/21
dapagliflozin propanediol 10 mg tablet (Farxiga) 10 mg PO DAILY Heart Failure 12/06/21
amlodipine 5 mg tablet 5 mg PO DAILY Blood Pressure 08/09/23
furosemide 40 mg tablet 40 mg PO MOWEFR Fluid Retention/Swelling 08/09/23
metoprolol succinate 50 mg tablet,extended release 24 hr 100 mg PO DAILY atrial fibrillation 08/09/23
hydralazine 25 mg tablet 25 mg PO BID Blood Pressure 01/26/24
multivitamin 1 tab PO DAILY Supplement 01/26/24
acetaminophen 325 mg tablet 650 mg (2 x 325 mg) PO Q6HPRN PRN mild pain #14 tabs 01/28/24
tiotropium bromide 18 mcg capsule with inhalation device (Spiriva with HandiHaler) 1 cap inhalation R DAILY Lung/Breathing Issues 05/18/24
Review of Systems
-
History Source: Patient
A 12 point ROS was completed and negative except as noted: Yes
Constitutional: Reports Chills; Denies Fever
EENT: Reports No Symptoms
Respiratory: Reports Cough (Productive of greenish sputum) and Trouble Breathing
Cardiac: Reports No Symptoms; Denies Chest Pain or Palpitations
Abdomen/GI: Reports Abdominal Pain; Denies Nausea or Vomiting
Skin: Reports No Symptoms
Neurological: Reports No Symptoms; Denies Headache or Weakness
Physical Exam
Vital Signs
Vital Signs
Temp Pulse Resp BP Pulse Ox
97.6 F 96 19 133/75 97
11/06/24 14:07 05/18/24 14:15 05/18/24 14:15 05/18/24 14:00 05/18/24 14:15
Physical Exam
General: Well Developed, No Apparent Distress, Comfortable, Conversant and Other (On BiPAP)
HEENT: NormoCephalic, Moist mucous membranes and Atraumatic
Respiratory: Clear and Other (On BiPAP for respiratory distress); No Wheezes
Cardiac: S1/S2 and Regular Rhythm; No Murmur or Rub
GI: Soft, Non Tender, Normal Bowel Sounds and Other (Obese); No Organomegaly
Rectal: Deferred by Provider
Musculoskeletal: No Clubbing, No Cyanosis and Other (Bilateral lower extremity 3+ edema)
Skin: Warm and Other (Left montelongo cellulitis, ecchymosis); No Rash or Jaundice
Neuro: Awake, Alert, AO x 3 and Nonfocal/grossly intact
Psych: Calm
Laboratory Results
-
05/18/24 08:15
05/18/24 08:15
Laboratory Results
Total Bilirubin 1.5 mg/dl (0.2-1.3) H 05/18/24 08:15
AST 26 U/L (17-59) 05/18/24 08:15
ALT 23 U/L (0-50) 05/18/24 08:15
Alkaline Phosphatase 265 U/L (38-126) H 05/18/24 08:15
Troponin I 0.167 ng/ml H* 05/18/24 11:27
Data Reviewed
-
Diagnostic Radiology: Image Personally Visualized and interpreted, Report Reviewed by me and Discussed with Physician
CT Scan: Image Personally Visualized and interpreted, Report Reviewed by me and Discussed with Physician
Medical Tests (Nuc Med, Echo, EKG etc): Report Reviewed by me and Discussed with Physician
Lab Data: Labs Reviewed by me and Discussed with Physician
Old Records: Reviewed
Impression/Plan
-
IMPRESSION: 64-year-old male with PMH of HFpEF, recovered CKD stage IIIb, CAD who presented to ED on 05/18/2024 with SOB cough, chills, bloating, abdominal pain. He was found to be fluid overloaded and started on IV Lasix with significant
improvement in abdominal pain and breathing.
Assessment/plan:
#Hypoxic respiratory insufficiency secondary to acute on chronic HFpEF
-Admit to IMU
-Suspect fluid overload with high sodium diet vs suboptimal diuretics.
-Echo 05/18 reports stage II diastolic dysfunction with moderate concentric LV hypertrophy
-IV Lasix 40 mg BID.
-Check VBG
-Follow daily weights, I's and O's.
-Follow BMP, replace electrolytes.
-Continue GDMT with Farxiga
-Cardiology following.
#Leukocytosis
-Multifactorial; PNA, cellulitis.
-CXR 05/18 positive for bilateral PNA, also seen on CT Abd/pel.
-Started vancomycin, cefepime, azithromycin.
-MRSA screen, if negative stop vancomycin.
-Remains afebrile.
-Continue antibiotics.
-Follow fever curve
#LLE Cellulitis/swelling/knee pain
-Due to recent mechanical fall.
-LLE x-ray (femur, knee).
-Continue antibiotics
-PT/OT
#Elevated troponin
-Suspect Non-AR ischemic myocardial injury with RV strain in the setting of fluid overload.
-Trend
-Reports no chest pain.
-Trend
#Obesity
-Due to excess calories.
-Affecting all aspects of his care.
-Healthy diet, regular exercise encouraged.
-Given his HFpEF, is a candidate for GLP-1 agonist.
#Paroxysmal A-fib
-Stable, rate controlled on metoprolol.
-Continue Eliquis.
-Monitor on telemetry.
#History of HERNANDEZ
-Baseline creatinine 0.9
-Unable to take JO-ANN inhibitors previously due to side effects.
-Avoid ARB's for now given his history.
#PATRIZIA
-On CPAP at home.
-Continue BiPAP at at bedtime.
#Essential hypertension
-Continue hydralazine, metoprolol, and amlodipine
-Monitor volume status while on Lasix.
DVT PPx-Eliquis
CODE STATUS-full code.
Data:
Echo 05/18/2024:
Normal biventricular size and systolic function without regional wall motion abnormalities. LVEF 55-60%.
Moderate concentric LV hypertrophy. Stage II diastolic dysfunction suggestive of abnormal relaxation and increased filling pressures.
No significant valvular disease.
Compared to prior study on 03/01/2024, no significant blancas
CT abdomen/pelvis 05/18/24:
1. No significant acute abnormality identified in the abdomen or pelvis, as described above.
2. Mild splenomegaly.
3. Severe right basilar pneumonia. Small bilateral pleural effusions.
CXR 05/18/2024:
Bilateral pneumonia and probable superimposed pulmonary vascular congestion.
[2024-05-18] MEDS: ELIQUIS 5 MG PO (14:44)
[2024-05-18 15:01] LABS: Troponin I 0.178 ng/ml
--- NOTE | 2024-05-18 15:25 | PTCARENOTE ---
Patient transported to the unit via stretcher. Pt transported with respiratory therapy on midflow 6L. Pt O2 sat is 95%. Pt wears CPAP HS. Pt currently normal sinus/sinus tachycardic on tele. Pt is tachypneic on arrival and states that his abdomen
hurts from coughing. Pt has a strong, occasional, non-productive cough. Pt denies chest pain. AAOx3. Pt receiving IV Lasix. Voiding into urinal. Pt going to x-ray of left leg. Pt complains of swelling and soreness of the left leg. +1 edema of that
left leg, ecchymotic. Pt states that he had a fall at home and injured his leg. Pt able to tolerate oral medication with a sip of water. Pt rings appropriately, and call nieves is within reach.
[2024-05-18] MEDS: TOPROL XL 100 MG PO (16:38)
[2024-05-18] MEDS: NORVASC 5 MG PO (16:39)
[2024-05-18] MEDS: CRESTOR 40 MG PO (18:08)
[2024-05-18] MEDS: ZITHROMAX 500 MG PO (18:08)
[2024-05-18 18:41] LABS: Urine Albumin Negative (Neg - Trace); Urine Bilirubin Negative (Negative); Urine Character Clear (Clear); Urine Color Yellow; Urine Glucose Negative (Negative); Urine Ketone Negative (Negative); Urine Leukocyte Negative (Negative); Urine Nitrite Negative (Negative); Urine Occult Blood Negative (Negative); Urine Urobilinogen Negative (Neg - 1+)
[2024-05-18 18:45] LABS: Venous Blood Gas B.E. 1.5 mmol/L (-4 to +4); Venous Blood Gas HCO3 25.9 mmol/L (22-27); Venous Blood Gas O2 Sat % 96.4 %; Venous Blood Gas pCO2 39 mmHg (35-48); Venous Blood Gas pH 7.43 (7.32-7.43); Venous Blood Gas pO2 75 mmHg (30-50)
[2024-05-18] MEDS: APRESOLINE 25 MG PO (20:28)
[2024-05-18] MEDS: TYLENOL 650 MG PO (20:28)
[2024-05-18] MEDS: FEOSOL 325 MG PO (20:28)
[2024-05-18] MEDS: MELATONIN 3 MG PO (20:28)
[2024-05-19] VITALS (23 sets, daily range): BP systolic 146–187; BP diastolic 58–90; PULSE 93–96; O2SAT 95; BMI 43.6
[2024-05-19] MEDS: ELIQUIS 5 MG PO ×2 (05:01→16:56)
--- NOTE | 2024-05-19 05:25 | PTCARENOTE ---
Troponin trending down. Low grade temp at bedtime. PRN Tylenol provided. Temp decreased in the room. NSR/ST on tele. Pt requested melatonin for sleep. BiPap placed by RT, pt unable tolerate, so setting switched to CPAP. Sp02 89-95% on bipap/cpap.
Using under nose mask to prevent further breakdown on top of nose. 6L when off bipap. tachypnea at rest & w/ exertion. Voiding via urinal. legs elevated on pillows. LLE around knee is bruised and purple, extending down the leg. LLE ankle is red and
warm; edema throughout. Pt stated he did not sleep much, although care was clustered throughout the night. Heart failure education started but pt does not appear to be interested, did not want CHF packet. packet left at bedside. Call nieves within
reach. pt calls appropriately.
[2024-05-19 05:42] LABS: % Basophils 0.3 % (0-2); % Eosinophils 1.2 % (0-6); % Immature Granulocytes 0.4 % (0-0.5); % Lymphocytes 5.5 % (20.5-51.1); % Monocytes 5.5 % (1.7-9.3); % Neutrophils 87.1 % (42.2-75.2); Absolute Eosinophils 0.2 10^3/uL (0-0.7); Absolute Immature Granulocytes 0.1 10^3/uL (0-0.05); Absolute Lymphocytes 0.8 10^3/uL (1.2-3.4); Absolute Monocytes 0.8 10^3/uL (0.1-0.6); Absolute Neutrophils 12.2 10^3/uL (1.4-6.5); Hematocrit 31.9 % (39.0-52.0); Hemoglobin 10.5 g/dL (13.0-18.0); Mean Corp Hgb Conc. 32.9 g/dL (33.0-37.0); Mean Corpuscular Volume 91.1 fL (80.0-94.0); Mean Platelet Volume 9.6 fL (7.4-10.4); Nucleated Red Blood Cells % 0 % (-); Platelet Count 199 10^3/uL (130-400); Red Cell Dist. Width 14.6 % (11.5-14.5)
[2024-05-19 05:49] LABS: Blood Urea Nitrogen 26 mg/dl (9-20); Carbon Dioxide 24 mmol/L (22-30); Chloride 104 mmol/L (98-107); Estimated Creatinine Clearance 100 ml/min; Glucose 123 mg/dl (70-99); Magnesium 2.1 mg/dl (1.6-2.3); Sodium 138 mmol/L (135-145); eGFR > 60.00
[2024-05-19] MEDS: VANCOCIN 530 MG IV (06:00)
--- NOTE | 2024-05-19 07:18 | W.PN.HOSP.TC ---
Today's Communication/Plan
-
Continue Lasix
Strict I's and O's, daily weights, fluid restriction
Continue antibiotics
PT/OT
Follow BMP
Assessment / Plan
Assessment / Plan
Impression: 64-year-old man with PMH of paroxysmal A-fib (on Eliquis), HFpEF, CAD (triple-vessel with stents/CABG), recovered CKD stage IIIb, who presented to ED on 05/18/2024 with worsening SOB and epigastric pain. He has been on 40 mg oral Lasix
3 times a week but has recently been told by his mobile home servicer that he would need to be taking it every day. There iss also a left leg swelling, echymosis and cellulitis.
Assessment/plan:
#Acute Hypoxic respiratory insufficiency
-Multifactorial; Acute on chronic HFpEF from fluid overload (likely high sodium diet on vacation), PNA, suboptimal diuretics.
-Currently at 5 L O2 NC
-Continue BiPAP at at bedtime, during naps
-Wean oxygen as tolerated.
-Spiriva daily
#Pneumonia, cellulitis
-Leukocytosis improving
-CXR 05/18 positive for bilateral PNA, also seen on CT Abd/pel.
-continue cefepime, azithromycin. Discontinue Vanco.
-Remains afebrile.
-Continue antibiotics.
-Follow fever curve
#Acute on chronic HFpEF
-Reports 10 pounds weight gain in less than 1 month.
-proBNP 3600
-Weight down 11 lbs from admission, diuresing appropriately
-Continue GDMT with Dov Zavaleta.
-Continue Lasix.
-Follow daily weights, I's and O electrolytes.
-Monitor on replete electrolytes, follow BMP.
-Cardiology on board
#LLE Cellulitis/swelling/knee pain
-Due to recent mechanical fall.
-LLE x-ray positive for suspected bone infarct, negative for fractures.
-Continue antibiotics
-PT/OT
#Elevated troponin
-Peaked at 0.178
-Suspect Non-OH ischemic myocardial injury with RV strain in the setting of fluid overload.
#Obesity
-Due to excess calories.
-Affecting all aspects of his care.
-Healthy diet, regular exercise encouraged.
-Given his HFpEF, is a candidate for GLP-1 agonist.
#Paroxysmal A-fib
-Stable, rate controlled on metoprolol.
-Continue Eliquis.
-Monitor on telemetry.
#History of HERNANDEZ
-Baseline creatinine 0.9
-Unable to take JO-ANN inhibitors previously due to side effects.
-Avoid ARB's for now given his history.
#PATRIZIA
-On CPAP at home.
-Continue BiPAP at at bedtime.
#Essential hypertension
-Continue hydralazine, metoprolol, and amlodipine
-Monitor volume status while on Lasix.
DVT PPx-Eliquis
CODE STATUS-full code.
Data:
Echo 05/18/2024:
Normal biventricular size and systolic function without regional wall motion abnormalities. LVEF 55-60%.
Moderate concentric LV hypertrophy. Stage II diastolic dysfunction suggestive of abnormal relaxation and increased filling pressures.
No significant valvular disease.
Compared to prior study on 03/01/2024, no significant blancas
CT abdomen/pelvis 05/18/24:
1. No significant acute abnormality identified in the abdomen or pelvis, as described above.
2. Mild splenomegaly.
3. Severe right basilar pneumonia. Small bilateral pleural effusions.
CXR 05/18/2024:
Bilateral pneumonia and probable superimposed pulmonary vascular congestion.
Anticipated Discharge: > 48 hours
Subjective/Interval History
-
Date of Service: May 19, 2024
Patient seen and examined lying in the bed with CPAP on. He reports that he did not sleep well last night because of uncomfortable mask. He also wanted the mask taken off and switched to nasal cannula. He agrees to use CPAP for naps. Overnight,
patient had a low-grade fever that responded to Tylenol. He could not tolerate BiPAP and was switched to CPAP on setting 9 cmH2O. He also reports a chronic on and off injury on the bridge of his nose caused by his home CPAP mask which is making it
very uncomfortable to use the mask provided here in the hospital. He also reports that he is able to bend his left knee better compared to yesterday. He denies chest pain, abdominal pain, palpitations, fever or chills. He is currently on 5 L O2
NC saturating at 92 to 94%.
Objective Data
-
Labs:
Laboratory Results
05/19/24
05:14
WBC 14.0 H
Hgb 10.5 L
Hct 31.9 L
Plt Count 199
Sodium 138
Potassium 4.0
Chloride 104
Carbon Dioxide 24
BUN 26 H
Creatinine 0.9
Glucose 123 H
Calcium 9.0
Vital Signs:
Vital Signs
Temp Pulse Resp BP Pulse Ox
98.7 F 91 22 175/74 95
05/19/24 05:02 05/19/24 06:15 05/19/24 06:15 05/19/24 06:05 05/19/24 06:15
I&O
05/18/24 05/19/24 05/20/24
06:59 06:59 06:59
Intake Total 1250 / 1250
Output Total 4300 / 4300
Balance -3050 / -3050
Review of Systems
-
All other systems: Reviewed and negative (As per history)
EENT: Reports No Symptoms Reported; Denies Sore Throat
Respiratory: Reports Cough (Intermittent) and Trouble Breathing; Denies Wheezing
Cardiac: Reports No Symptoms; Denies Chest Pain or Palpitations
Musculoskeletal: Reports Joint Pain and Edema
Skin: Reports Other (Ecchymosis and redness on LLE)
Physical Exam
-
General: Well Developed, Well Nourished and No Apparent Distress
HEENT: Normocephalic, Atraumatic and Anicteric
Respiratory: Clear to Auscultation and Non Labored Respirations
Cardiac: Regular Rhythm, S1/S2 and Murmur
GI: Soft, Nontender, Nondistended, Normal Bowel Sounds and Other (Drain in place)
Musculoskeletal: No Clubbing, No Cyanosis, Edema, Right Lower Extrem and Edema, Left Lower Extrem
Skin: Warm, Dry and Other (LLE ecchymosis, cellulitis)
Neuro: Awake, Alert, Oriented and AO x 3
Psych: Calm and Intact Judgement/Insight
Data Reviewed
-
Diagnostic Radiology: Image personally visualized and interpreted, Report Reviewed by me and Discussed with Physician
Labs: Labs Reviewed by me and Discussed with Physician
Old Records: Reviewed
[2024-05-19] MEDS: APRESOLINE 25 MG PO ×3 (07:53→20:13)
[2024-05-19] MEDS: LASIX 40 MG IV ×2 (07:55→16:58)
[2024-05-19] MEDS: FEOSOL 325 MG PO ×2 (07:55→20:04)
[2024-05-19] MEDS: FARXIGA 10 MG PO (07:55)
[2024-05-19] MEDS: MAXIPIME 1000 MG IV ×2 (07:56→20:04)
[2024-05-19] MEDS: MIRALAX 17 GRAMS PO (07:57)
[2024-05-19] MEDS: NORVASC 5 MG PO (07:57)
[2024-05-19] MEDS: THERAGRAN 1 TABLET PO (07:58)
[2024-05-19] MEDS: TOPROL XL 100 MG PO (07:58)
[2024-05-19] MEDS: STERILE WATER FOR INJECTION 10 ML IV ×2 (07:58→20:04)
[2024-05-19] MEDS: ZITHROMAX 500 MG PO (07:59)
[2024-05-19] MEDS: SPIRIVA RESPIMAT 2.5 MCG 2 PUFF INH (08:04)
--- NOTE | 2024-05-19 09:35 | CM ---
Met with patient at bedside; initial assessment completed
Pharmacy verified: [facility] @ [address] [place] [address], [place], [place]
Patient reported he lives alone in a multilevel home; no steps to enter; 12-13 steps to 2nd floor; powder room on the 1st floor; 2nd floor master bath has walk-in shower w/seat
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
DME: CPAP
NO SNF history; Home Health with [facility] in August 05 after ortho procedure for PT
Significant other will transport home
PT assessment pending
Plan: Discharge to home when medically stable; will monitor for needs at discharge
--- NOTE | 2024-05-19 09:42 | W.PN.CD ---
Today's Communication / Plan
-
- 3 liters negative over the first 24 hours. Continue duretics with close montioring of renal function, weights and I/O
-Still on 4-5 liters despite diuresis whihc may be related to PNA.
- monitor BP with diuresis
- hydralazine changed to TID
Impression / Plan
-
SOB:
- multifactorial with respiratory infection/PNA and [id number] HFpEF
-treatment of suspected PNA per IM,
- tx of HF as below
Acute on chronic HFpEF
- Precipitant may have been diet/fluid/Na+ related. echo with normal LVF
- Continue SGLT2-I
- Will consider adding MRA at low dose prior to discharge
- For now will avoid ARB/ARNI given prior HERNANDEZ with JO-ANN-I, may try to add low dose prior to discharge
- Dr Parker his primary inspector coated fabrics told him given his CAD, HF, and obesity I think he is an excellent for GLP1 agonist kelly if he cannot continue to lose weight to a BMI of less than 27 (SELECT trial and STEP-HFpEF�trial)
- 3 liters negative over the first 24 hours. Continue duretics with close montior ingof renal function, weights and I/O
-
Abnormal troponin:
-suspect acute non-ischemic myocardial injury in setting of CHF and acute illness with PNA
CAD with hx CABG:
-no CP
-continue medical therapy
HTN:
-on multiple medications (CCB, hydralazine, metoprolol)- follows with nephro- CKD3A as OP, and intermittent hyperkalemia in past, Creatinine currently 0.9
-monitor with diuresis
- can titrate amlodipine and hydralazine for BP control
- hydralazien changedot TID today
Obesity:
-will benefit from weight loss moving forward
PAF:
-stable in SR
-continue Eliquis
HTN - BP elevated.
- monitor with diuresis
Physical Exam
Vital Signs/Labs
Vital Signs
Temp Pulse Resp BP Pulse Ox
99.0 F 96 16 159/74 94
05/19/24 07:35 05/19/24 08:15 05/19/24 08:15 05/19/24 08:01 05/19/24 08:51
05/18/24 05/19/24 05/20/24
06:59 06:59 06:59
Actual Weight 122.4 kg
05/19/24 05:14
05/19/24 05:14
Magnesium 2.1 mg/dl (1.6-2.3) 05/19/24 05:14
05/18/24
08:15
Pmb-U-Eanjycixojv Pept 3600
LAB Results
05/18/24 05/18/24 05/18/24
08:15 11:27 14:23
Troponin I 0.147 H* 0.167 H* 0.178 H*
05/18/24
20:07
Troponin I 0.160 H*
Physical Exam
Constitutional: No acute distress
Cardiovascular: Rhythm & rate is regular
Respiratory: Wheeze Absent and Rhonchi Absent
GI: Soft, Non tender and Distention present
Neuro/Psych: Alert and Oriented
Other: Other (left knee adn lwoer leg with brusing. also mild edema dn small patch of pretibial erythmea whihc he had prior to admit.right leg without edema)
Data Reviewed
-
Date of Service: May 19, 2024
Medical Decision Making: Reviewed Test Results
Medical Tests (PFT, Pathology etc): Report Reviewed by me
Labs: Labs Reviewed by me
--- NOTE | 2024-05-19 11:22 | WOUNDNOTE ---
[facility] RN NOTE: Reviewed chart and met with patient while he was sitting in chair. Patient talking loudly and yelling to this RN that staff have been asking him too many questions such as and PMH. Patient reports he could not use his face mask
night because staff did not want to apply because his nose was reddened and covered with Exuderm patch. Patient has since removed Exuderm patch. At time of assessment no open area was noted on nose. Spoke to Respiratory Therapist, Cristel regarding
skin concerns and mask use. Plan is to use silicone border foam over nasal bridge when mask in use at night. Patient is agreeable to plan. Small border foams left at bedside. RN Angel given update.
--- NOTE | 2024-05-19 11:40 | WOUNDNOTE ---
[facility]
--- NOTE | 2024-05-19 13:25 | PTCARENOTE ---
Assumed care for patient during the day, received report from RN. Pt remains afebrile. NSR with occasional PAC's on tele. BPs have been on the higher end pt hx of HTN. Hydralazine changed to TID, see orders. Pt 99% on 6L midflow. Pt walked up and
down the hallway with PT/OT, requests to be in the chair for the day. Pt dyspneic on exertion and tachypneic. Left leg elevated. LLE ankles are red and warm. Ecchymosis from the left knee down to the ankles. TEDs placed. Oral care done. Voiding
using the urinal. Educated patient about CHF, receptive to education. Pt rings appropriately. Significant other is at the bedside. Call nieves is within reach.
--- NOTE | 2024-05-19 13:53 | W.PN.UPDATE ---
Update Note
Progress Note Update
I personally performed a history and physical exam of the patient and discussed management with the resident. I reviewed the resident's note and agree with the documented findings and plan of care HPI/CC except katia in my documentation
64-year-old pleasant male came to the ER with shortness of breath and abdominal discomfort and bloating. He does have a productive cough had some greenish sputum .
Chest x-ray reviewed by me-bilateral infiltrates and fluid-pulmonary edema
CT abdomen and pelvis with IV contrast-no significant acute abnormality. Mild splenomegaly. Severe right basilar pneumonia. Small bilateral pleural effusions.
Echo 05/18/2024-normal biventricular size and systolic function. EF 55 to 60%. Moderate concentric LVH. Stage II diastolic dysfunction
EKG reviewed by me-sinus rhythm no ischemia
Patient Able to communicate awake and alert and oriented
Cardiovascular system S1-S2 appreciated, short cardiac murmur at apex
Chest rales noted
Abdomen soft no tenderness
Left lower extremity healing ecchymosis all over the leg from mid thigh lower down.
Mild redness just above the ankle not related to ecchymosis
Bilateral pedal edema- slightly better
# Acute respiratory failure
Shortness of breath on admission
Off BIPAP,On NC O2
Likely multifactorial secondary to CHF and also pneumonia
# Pneumonia-COVID serology negative
Treat with cefepime and Zithromax
Discontinued vancomycin
Sputum cultures if possible
# Acute on chronic HFpEF
proBNP 3600
Continue Farxiga, Lasix, metoprolol
Intake output charting, daily weights
we weighed the patient on standing scale 120.7 kg ( Recorded bed scale 122.4 kg.)
CHF Education
# Questionable cellulitis of left lower extremity with slightly increased warmth and redness just above the ankle along with ecchymosis-antibiotics should cover. Follow clinically
# Trauma of the knee with pain and jybqxrso-t-evrj without any knee joint effusion or any fractures
# Elevated troponin-nonischemic myocardial injury secondary to CHF
# Coronary disease with history of CABG
# Paroxysmal atrial fibrillation-history of ablation 2021 currently in sinus rhythm continue Eliquis and metoprolol
# Hypertension on Amlodipine 5 Mg, metoprolol 100 mg daily as outpatient- Continue
Hydralazine 25 Mg twice daily-changed to 3 times daily
# Hyperglycemia-HbA1c 4.8
# Hyperlipidemia-continue statin
# CKD stage unclear-follows with nephrology as outpatient
# Anemia-likely secondary to acute blood loss and ecchymosis on the left leg secondary to trauma, Iron deficiency also noted. GI workup as outpatient. Add p.o. iron
# Sleep apnea-continue CPAP -normally uses a pressure of 8.5 cm of water
# Obesity with a BMI of 39-weight loss is needed
# Arthritis with multiple joint arthroplasty
# DVT prophylaxis-Eliquis
# Full code
Discussed with at bedside
Discussed with RN
time more than 50 min
[2024-05-19] MEDS: CRESTOR 40 MG PO (16:56)
[2024-05-19] MEDS: TYLENOL 650 MG PO (20:04)
[2024-05-20] VITALS (9 sets, daily range): BP systolic 133–156; BP diastolic 59–78; PULSE 93; O2SAT 100; BMI 43.1; BMI 41.5
[2024-05-20 04:33] LABS: Hematocrit 33.9 % (39.0-52.0); Mean Corp Hgb Conc. 32.4 g/dL (33.0-37.0); Mean Corpuscular Volume 95.5 fL (80.0-94.0); Mean Platelet Volume 9.3 fL (7.4-10.4); Platelet Count 180 10^3/uL (130-400); Red Blood Cell Count 3.55 10^6/uL (4.70-6.10); Red Cell Dist. Width 14.3 % (11.5-14.5); White Blood Cell Count 9.3 10^3/uL (4.8-10.8)
[2024-05-20 04:55] LABS: Blood Urea Nitrogen 29 mg/dl (9-20); Calcium 8.8 mg/dl (8.4-10.2); Carbon Dioxide 29 mmol/L (22-30); Chloride 103 mmol/L (98-107); Estimated Creatinine Clearance 89 ml/min; Glucose 105 mg/dl (70-99); Potassium 3.6 mmol/L (3.5-5.1); Sodium 142 mmol/L (135-145); eGFR > 60.00
--- NOTE | 2024-05-20 06:29 | PTCARENOTE ---
Patient utilized his home CPAP w/ 2L bled in. Sp02 WNL. Tachypnea improving, pt stating he is starting to feel better. Voiding via urinal, diuresing appropriately. Denies any pain. Legs elevated on pillows. TEDs removed HS. NSR w/ PACs & PVCs.
Repositions self while in bed. Low grade temp 100.4; tylenol provided. Call nieves and tray table within reach.
[2024-05-20] MEDS: FARXIGA 10 MG PO (08:10)
[2024-05-20] MEDS: TOPROL XL 100 MG PO (08:10)
[2024-05-20] MEDS: THERAGRAN 1 TABLET PO (08:10)
[2024-05-20] MEDS: FEOSOL 325 MG PO (08:11)
[2024-05-20] MEDS: APRESOLINE 25 MG PO ×2 (08:11→15:43)
[2024-05-20] MEDS: LASIX 40 MG IV ×2 (08:11→15:43)
[2024-05-20] MEDS: ZITHROMAX 500 MG PO (08:11)
[2024-05-20] MEDS: NORVASC 5 MG PO (08:11)
[2024-05-20] MEDS: STERILE WATER FOR INJECTION 10 ML IV (08:11)
[2024-05-20] MEDS: ELIQUIS 5 MG PO (08:11)
[2024-05-20] MEDS: MAXIPIME 1000 MG IV (08:12)
[2024-05-20] MEDS: MIRALAX 17 GRAMS PO (08:19)
--- NOTE | 2024-05-20 08:22 | W.PN.HOSP.TC ---
Addendum entered and electronically signed by Jimmy Randolph MD 05/20/24 15:18:
More than 30 minutes spent in discharge including
Final examination of the patient
Summarizing hospital stay
Instructions for continuing care to all relevant caregivers
Preparation of discharge records, prescriptions, and referral forms
Total time spent (in minutes): 36 min
Addendum entered and electronically signed by Jimmy Randolph MD 05/20/24 10:18:
I personally performed a history and physical exam of the patient and discussed management with the resident. I reviewed the resident's note and agree with the documented findings and plan of care HPI/CC nicole montalvo in my documentation
64-year-old pleasant male came to the ER with shortness of breath and abdominal discomfort and bloating. He does have a productive cough had some greenish sputum .
Chest x-ray reviewed by me-bilateral infiltrates and fluid-pulmonary edema
CT abdomen and pelvis with IV contrast-no significant acute abnormality. Mild splenomegaly. Severe right basilar pneumonia. Small bilateral pleural effusions.
Echo 05/18/2024-normal biventricular size and systolic function. EF 55 to 60%. Moderate concentric LVH. Stage II diastolic dysfunction
EKG reviewed by me-sinus rhythm no ischemia
Cardiovascular system S1-S2 appreciated, short cardiac murmur at apex
Chest clear to auscultation
Abdomen soft no tenderness
Left lower extremity ecchymosis better
Edema around the left knee Much better
Mild redness just above the ankle not related to ecchymosis-better
Bilateral pedal edema-Much better left side almost resolved
# Acute respiratory failure
Shortness of breath on admission
Off oxygen
Likely multifactorial secondary to CHF and also pneumonia
Patient feels a lot better and asking to go home
# Pneumonia-COVID serology negative
Treated with cefepime and Zithromax. Changed to 3 more days of Zithromax and 5 more days of cefpodoxime at discharge
Discontinued vancomycin
Sputum cultures -over contamination with oropharyngeal jennifer. Not acceptable for culture.
# Acute on chronic HFpEF
proBNP 3600
Continue Farxiga, Lasix, metoprolol
Intake output charting, daily weights
Again weighed the patient on standing scale 116.5 Kg
CHF Education
# Mild Cellulitis of left lower extremity with slightly increased warmth and redness just above the ankle along with ecchymosis-antibiotics should cover. Follow clinically
# Trauma of the knee with pain and qovrzzoz-w-cjcf without any knee joint effusion or any fractures
# Elevated troponin-nonischemic myocardial injury secondary to CHF
# Coronary disease with history of CABG
# Paroxysmal atrial fibrillation-history of ablation 2021 currently in sinus rhythm continue Eliquis and metoprolol
# Hypertension on Amlodipine 5 Mg, metoprolol 100 mg daily as outpatient- Hydralazine 25 Mg twice daily-changed to 3 times daily
# Hyperglycemia-HbA1c 4.8
# Hyperlipidemia-continue statin
# CKD stage unclear-follows with nephrology as outpatient
# Anemia-likely secondary to acute blood loss and ecchymosis on the left leg secondary to trauma, Iron deficiency also noted. GI workup as outpatient. Added p.o. iron
# Sleep apnea-continue CPAP -normally uses a pressure of 8.5 cm of water
# Obesity with a BMI of 41-weight loss is needed
# Arthritis with multiple joint arthroplasty
# DVT prophylaxis-Eliquis
# Full code
Discussed with Cards at bedside
Discussed with RN
Original Note:
Today's Communication/Plan
-
Repeat CXR
Sputum culture pending
Continue antibiotics
Continue Lasix
Daily weights, I's and O's
Assessment / Plan
Assessment / Plan
Impression: 64-year-old man with PMH of paroxysmal A-fib (on Eliquis), HFpEF, CAD (triple-vessel with stents/CABG), recovered CKD stage IIIb, who presented to ED on 05/18/2024 with worsening SOB and epigastric pain. He has been on 40 mg oral Lasix
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 There iss also a left leg swelling, echymosis and cellulitis.
Assessment/plan:
#Acute Hypoxic respiratory insufficiency
-SOB on admission, multifactorial; Acute on chronic HFpEF from fluid overload (likely high sodium diet on vacation), PNA, suboptimal diuretics.
-Currently on room air saturating at 94%
-Continue BiPAP at at bedtime, during naps.
-Wean oxygen as tolerated.
-Spiriva daily
#Pneumonia, cellulitis
-Leukocytosis resolved, cellulitis improving
-Continue cefepime and azithromycin.
-Sputum culture pending
-Repeat CXR today.
#Acute on chronic HFpEF
-Reports 10 pounds weight gain in less than 1 month.
-proBNP 3600
-Lost another 3 lbs, diuresing appropriately
-Continue GDMT with Dov Zavaleta, patient not on JO-ANN inhibitor due to history of HERNANDEZ.
-Continue Lasix.
-Follow daily weights, I's and O electrolytes.
-Monitor on replete electrolytes, follow BMP.
-Cardiology on board
#Elevated troponin
-Peaked at 0.178
-Suspect Non-NC ischemic myocardial injury with RV strain in the setting of fluid overload.
#Obesity
-Due to excess calories.
-Affecting all aspects of his care.
-Healthy diet, regular exercise encouraged.
-Given his HFpEF, is a candidate for GLP-1 agonist.
#Paroxysmal A-fib
-Stable, rate controlled on metoprolol.
-Continue Eliquis.
-Monitor on telemetry.
#PATRIZIA
-On CPAP at home.
-Continue BiPAP at at bedtime.
#Essential hypertension
-Continue hydralazine, metoprolol, and amlodipine
-Monitor volume status while on Lasix.
DVT PPx-Eliquis
CODE STATUS-full code.
Data:
Echo 05/18/2024:
Normal biventricular size and systolic function without regional wall motion abnormalities. LVEF 55-60%.
Moderate concentric LV hypertrophy. Stage II diastolic dysfunction suggestive of abnormal relaxation and increased filling pressures.
No significant valvular disease.
Compared to prior study on 03/01/2024, no significant blancas
CT abdomen/pelvis 05/18/24:
1. No significant acute abnormality identified in the abdomen or pelvis, as described above.
2. Mild splenomegaly.
3. Severe right basilar pneumonia. Small bilateral pleural effusions.
CXR 05/18/2024:
Bilateral pneumonia and probable superimposed pulmonary vascular congestion.
Anticipated Discharge: Within 24 hours
Subjective/Interval History
-
Date of Service: May 20, 2024
I have seen and examined patient. Patient reports sleeping and feeling better. Overnight, he had a low-grade fever responded to Tylenol. He is diuresing appropriately and has lost an additional 3 pounds from yesterday. He denies headache, chest
pain, abdominal pain, fever or chills at this moment. Patient is inquiring if he can go home today.
Objective Data
-
Labs:
Laboratory Results
05/20/24
04:16
WBC 9.3
Hgb 11.0 L
Hct 33.9 L
Plt Count 180
Sodium 142
Potassium 3.6
Chloride 103
Carbon Dioxide 29
BUN 29 H
Creatinine 1.0
Glucose 105 H
Calcium 8.8
Vital Signs:
Vital Signs
Temp Pulse Resp BP Pulse Ox
98.1 F 77 22 136/69 92
05/20/24 04:21 05/20/24 07:00 05/20/24 07:00 05/20/24 06:00 05/20/24 07:00
I&O
11/07/24 11/08/24 11/09/24
06:59 06:59 06:59
Intake Total 1250 / 1250 1320 / 1320
Output Total 4300 / 4300 3200 / 3200
Balance -3050 / -3050 -1880 / -1880
Review of Systems
-
History Source: Patient
All other systems: Reviewed and negative (As per history)
EENT: Reports No Symptoms Reported; Denies Sore Throat
Respiratory: Reports Cough (Intermittent) and Trouble Breathing; Denies Wheezing
Cardiac: Reports No Symptoms; Denies Chest Pain or Palpitations
Musculoskeletal: Reports Joint Pain and Edema
Skin: Reports Other (Ecchymosis and redness on LLE)
Physical Exam
-
General: Well Developed, Well Nourished and No Apparent Distress
HEENT: Normocephalic, Atraumatic and Anicteric
Respiratory: Clear to Auscultation and Non Labored Respirations
Cardiac: Regular Rhythm, S1/S2 and Murmur
GI: Soft, Nontender, Nondistended, Normal Bowel Sounds and Other (Drain in place)
Musculoskeletal: No Clubbing, No Cyanosis, Edema, Right Lower Extrem and Edema, Left Lower Extrem
Skin: Warm, Dry and Other (LLE ecchymosis, cellulitis)
Neuro: Awake, Alert, Oriented and AO x 3
Psych: Calm and Intact Judgement/Insight
Data Reviewed
-
Diagnostic Radiology: Image personally visualized and interpreted, Report Reviewed by me and Discussed with Physician
Labs: Labs Reviewed by me and Discussed with Physician
Old Records: Reviewed
[2024-05-20] MEDS: SPIRIVA RESPIMAT 2.5 MCG 2 PUFF INH (08:52)
--- NOTE | 2024-05-20 10:30 | W.PN.CD ---
Today's Communication / Plan
-
Home on increased Lasix to daily, reinforced Na+/Fluid restriction
He will discuss GLP1 agonist with PCP
Later I will try and add MRA and then later try ARB but prior HERNANDEZ/hyperkalemia may be seen again, if just hyperkalemia I may manage with Lokelma in future
My office will reach out to him for a post-hospital followup
Impression / Plan
-
Acute on chronic HFpEF
- Precipitant may have been diet/fluid/Na+ related. echo with normal LVF
- Continue SGLT2-I
- Will consider adding MRA at low dose as outpatient
- For now will avoid ARB/ARNI given prior HERNANDEZ with JO-ANN-I, may try to add low dose prior to discharge
- Given his CAD, HF, and obesity I think he is an excellent for GLP1 agonist kelly if he cannot continue to lose weight to a BMI of less than 27 (SELECT trial and STEP-HFpEF�trial)
- Orthopnea resolved. Dyspnea much improved.
- From cardiac standpoint OK for home
- CXR much improved (not resolved)
Abnormal troponin => acute non-ischemic myocardial injury in setting of CHF and acute illness with PNA
Possible concomitant pneumonia => ATB per hospitalist
CAD with hx CABG
HTN:
-on multiple medications (CCB, hydralazine, metoprolol)- follows with nephro- CKD3A as OP, and intermittent hyperkalemia in past, Creatinine currently 0.9
Obesity:
- will benefit from weight loss moving forward
- Given his CAD, HF, and obesity I think he is an excellent for GLP1 agonist kelly if he cannot continue to lose weight to a BMI of less than 27 (SELECT trial and STEP-HFpEF�trial)
PAF:
-stable in SR, remote ablation
-continue Eliquis
Subjective:
Feels much better. Eager for home
Physical Exam
Vital Signs/Labs
Vital Signs
Temp Pulse Resp BP Pulse Ox
98.3 F 90 16 151/72 94
05/20/24 07:15 05/20/24 08:53 05/20/24 08:53 05/20/24 08:00 05/20/24 09:57
05/19/24 05/20/24 05/21/24
06:59 06:59 06:59
Actual Weight 122.4 kg 121 kg 116.5 kg
05/20/24 04:16
05/20/24 04:16
Magnesium 2.1 mg/dl (1.6-2.3) 05/19/24 05:14
05/18/24
08:15
Zlp-F-Pmdtfoajlmb Pept 3600
LAB Results
05/18/24 05/18/24 05/18/24
08:15 11:27 14:23
Troponin I 0.147 H* 0.167 H* 0.178 H*
05/18/24
20:07
Troponin I 0.160 H*
Physical Exam
Constitutional: No acute distress
EENT: Anicteric
Cardiovascular: Rhythm & rate is regular and Rub absent
Respiratory: Respiratory effort normal and Lungs clear to auscul.
GI: Soft and Distention absent
Neuro/Psych: AO x 3
Data Reviewed
-
Date of Service: May 20, 2024
--- NOTE | 2024-05-20 11:26 | PN.CDI ---
Addendum entered and electronically signed by Jimmy Randolph MD 05/20/24 13:58:
Documentation is complete at this time.
Original Note:
CDI
- -
CDI:
Physician Documentation Request
Admit Date: 05/18/24 12:52
Dear Doctor Tomasa/Resident
Please review the following and provide your response in the progress notes.
Clinical Indicators:
Pt admitted with Acute on Chronic CHFpEF/ Pneumonia/ LLE cellulitis/Acute Hypoxic Respiratory Failure
Progress note 05/20, ' Pneumonia...Treated with cefepime and Zithromax. Changed to 3 more days of Zithromax and 5 more days of cefpodoxime at discharge Discontinued vancomycin .. Mild Cellulitis of left lower extremity with slightly increased
warmth and redness just above the ankle along with ecchymosis-antibiotics should cover. Follow clinically...'
On admit WBC 16.4,Tmax 100.8, HR 111 ,Respirations 31
Please clarify which of the following most accurately describes the status of the patient's infection:
Sepsis-POA
- Systemic manifestations of infection, with 2 or more SIRS criteria which include:
- Fever >100.4 degrees F or hypothermia < 96.8 degrees F
- Leukocytosis - WBC > 12,000 or leukopenia - WBC < 4,000 or > 10% bands
- Tachycardia > 90 beats per minute
- Tachypnea - RR > 20 breaths per minute or PaCO2 , 32mmHg
Source: Merck Manual 2013
Pneumonia/LLE cellulitis only , Without Systemic Illness
- indicate the site/source, such as UTI, pneumonia etc.
Other
Use of terms such as suspected, likely, concern for, or probable (associated with a specific diagnosis that is being evaluated, monitored, or treated as if it exists) are acceptable and can be coded in the inpatient setting, when documented at the
time of discharge.
Thank you,
Madison English RN
CDI Specialist
[facility]
Please use your independent medical judgment in providing your response.
--- NOTE | 2024-05-20 15:25 | CM ---
Patient with Dx Acute respiratory failure, PNA, HF, Cellulitis of left lower extremity. PT/OT; no skilled PT/OT needed.
Met with patient who was preparing for d/c. The patient says he feels ready to go home today. IMM completed. His SO Mariela will provide a ride home.
No CM d/c needs identified.
Plan home today.
--- NOTE | 2024-05-20 16:46 | W.DCSUMMARY ---
Addendum entered and electronically signed by Jimmy Randolph MD 05/21/24 18:36:
Read, reviewed, and agree. See same day progress note for additional details. Time spent coordinating care, DC planning, review of DC plan of care with resident, transition of care, review of records in EMR, med rec, consults, notes, d/w
consultants, nursing, family, and CM mins
Original Note:
Discharge Summary
Discharge Data
Date of Admission: 05/18/24
Date of Discharge: 05/20/24
-
Pending Results: No
Hospital Course
Discharging Physician : Jimmy Randolph MD ; Brad Sandoval MD
Disposition : Home
Primary care physician : Yovani Rodriguez MD
Principal Discharge diagnosis :Acute on chronic HFpEF, paroxysmal A-fib, essential hypertension, obesity, LLE cellulitis, pneumonia, acute respiratory failure
Hospital Course : 64-year-old man with PMH of paroxysmal A-fib (on Eliquis), HFpEF, CAD (triple-vessel with stents/CABG), recovered CKD stage IIIb, who presented to ED on 05/18/2024 with worsening SOB and epigastric pain. He also presented with
a left leg swelling, echymosis and cellulitis. CBC done in the ED was significant for leukocytosis of 16.4, and troponin of 0.167. He was also evaluated with a chest x-ray and a CT scan which both showed right-sided pneumonia. Patient was started
on BiPAP, cultures were obtained and patient was started on Lasix and antibiotics. Cardiology was consulted and patient was admitted to IMU for further evaluation and management.
While in the hospital, patient was seen in consultation with cardiology and he continued to improve on both antibiotics and Lasix. He patient required 5 L O2 NC during the day and CPAP at night and has been gradually weaned off oxygen.
Condition on discharge: Awake, alert and oriented x3, answer question properly, able to make own decision and take care of activities of daily living, speech clear and comprehensive, continent of the bowel and bladder, ambulate without surgery assistant,
has overall improved and is clinically stable for discharge today.
Important imaging findings :
CXR 05/20/2024:
Interval improvement in pulmonary edema pattern.
Echo 05/18/2024:
Normal biventricular size and systolic function without regional wall motion abnormalities. LVEF 55-60%.
Moderate concentric LV hypertrophy. Stage II diastolic dysfunction suggestive of abnormal relaxation and increased filling pressures.
No significant valvular disease.
Compared to prior study on 03/01/2024, no significant blancas
CT abdomen/pelvis 05/18/24:
1. No significant acute abnormality identified in the abdomen or pelvis, as described above.
2. Mild splenomegaly.
3. Severe right basilar pneumonia. Small bilateral pleural effusions.
CXR 05/18/2024:
Bilateral pneumonia and probable superimposed pulmonary vascular congestion.
Anticipated Discharge: Within 24 hours
Discharge Plan
-
Patient Disposition: Home (Routine Discharge)
Discharge Diagnosis/Procedures: Acute on chronic HFpEF, paroxysmal A-fib, essential hypertension, obesity, LLE cellulitis, pneumonia, acute respiratory failure
Condition: Fair
Diet: 2 Gram Sodium and Restrict fluids to 48 oz
Activity: As tolerated
Driving Restrictions: As prior to admission
Bathing Restrictions: None
Others Tests: X ray chest 6 weeks
Specialty Instructions: Weigh Daily- Call MD for wt gain/loss 3 lbs overnight/5 lbs in 1 week
Activity Restrictions/Additional Instructions:
Weight loss advised
Follow-up with primary doctor and GI for workup of iron deficiency
Instructions: *CBC Heart Failure Instructions
Referrals:
Yovani Rodriguez MD [Family Provider] - in less than 1 week
Rj Parker MD [Active] - in two to three weeks
Prescriptions:
New
ferrous sulfate [FeroSul] 325 mg (65 mg iron) Tablet
325 mg PO BID Qty: 60 0RF
hydralazine 25 mg Tablet
25 mg PO TID Qty: 90 0RF
azithromycin 250 mg Tablet
500 mg PO DAILY 2 Days Qty: 4 0RF
Rx Instructions:
Take 2 tablets once daily
cefdinir 300 mg capsule
300 mg PO BID 2 Days Qty: 4 0RF
furosemide [Lasix] 40 mg tablet
40 mg PO DAILY Qty: 30 0RF
Continued
Eliquis 5 MG tablet
5 mg PO BID
Patient Comments:
rosuvastatin [Crestor] 40 MG tablet
40 mg PO QPM
dapagliflozin propanediol [Farxiga] 10 MG tablet
10 mg PO DAILY
metoprolol succinate 50 mg Tablet Extended Release 24 Hr
100 mg PO DAILY
amlodipine 5 mg Tablet
5 mg PO DAILY
multivitamin Tablet
1 tab PO DAILY
acetaminophen 325 mg tablet
650 mg PO Q6HPRN PRN (Reason: mild pain) Qty: 14 0RF
tiotropium bromide [Spiriva with HandiHaler] 18 mcg Capsule, W/Inhalation Device
1 cap INHALATION R DAILY
Discontinued
furosemide 40 MG tablet
40 mg PO MOWEFR
hydralazine 25 mg Tablet
25 mg PO BID
Discharge Orders:
Discharge Patient (As Directed); Ordered 05/20/24
Ordered By: Brad Sandoval
Discharge Date and Time
Print Language: MOROCCAN
--- NOTE | 2024-05-20 17:07 | PTCARENOTE ---
Patient for discharge. Verified with Dr Randolph that patient to receive IV lasix and po hydralazine prior to discharge. All instructions and med list explained to patient with next dose due. Patient's SO to transport patient home. He stated they are
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
--- NOTE | 2024-05-23 10:17 | W.HF.CON ---
Heart Failure
- LV Function
Left ventricular function study result: LV Ejection fraction >/= 50%
Ejection Fraction Percentage: 55-60
- ARNI
Patient already on ARNI: No
Heart Failure ARNI Not Indicated: LV Ejection Fraction >/= 40%
- ACEI/ARB
Patient already on ACEI/ARB: No
Heart Failure ACEI/ARB Not Indicated: LV Ejection Fraction > 40%
- Beta Jannet
Patient already on Evidence Based Beta Jannet: Yes
- Mineralocorticord Receptor Antagonist
Patient already on MRA: No
Heart Failure MRA Not Indicated: LV Ejection Fraction > 40%
- SGLT-2 Inhibitor
Patient already on SGLT-2 Inhibitor: Yes
- Afib Anticoagulation
Patient already on Anticoagulation for Afib: Yes
- NYHA CHF Classification
NYHA CHF Classification Level: Class III - Symptoms w/ min exertion, interferes w/ nml daily activity
- ACC/AHA Stage
ACC/AHA Stage: Stage C: Symptomatic Heart Failure
== END 2024-05-20 18:02 | disposition home or self-care (01) | DRG 291 ==
LOC: IMU 12:52
PROVIDERS: Nurse Practitioner; Student in an Organized Health Care Education/Training Program; ADMITTING PHYSICIAN Hospitalist; EMERGENCY PHYSICIAN Student in an Organized Health Care Education/Training Program; FAMILY PHYSICIAN Family Medicine; OTHER PHYSICIAN Internal Medicine Cardiovascular Disease
DX: I13.0 Hypertensive heart and chronic kidney disease with heart failure and stage 1 through stage 4 chronic kidney disease, or unspecified chronic kidney disease (principal); I50.33 Acute on chronic diastolic (congestive) heart failure; J96.01 Acute respiratory failure with hypoxia; J18.9 Pneumonia, unspecified organism; I48.19 Other persistent atrial fibrillation; Z68.41 Body mass index [BMI] 40.0-44.9, adult; L03.116 Cellulitis of left lower limb; Z11.52 Encounter for screening for COVID-19; E66.9 Obesity, unspecified; I48.0 Paroxysmal atrial fibrillation; I5A Non-ischemic myocardial injury (non-traumatic)
CPT/HCPCS: 71045; 71046; 73552; 73564; 74177; 80048; 80053; 81003; 82607; 82728; 82805; 83036; 83540; 83550; 83735; 83880; 84484; 85025; 85027; 87070; 87205; 87502; 87641; 87811; 93005; 93306; 94640; 94660; 96365; 96375; 97163; 97166; 97530; 99291; Q9967

== ENCOUNTER 2024-07-05 22:53 | Inpatient (IN) | payer BC, MEDICARE, SELFPAY ==
[2024-07-05] VITALS (12 sets, daily range): BP systolic 123–150; BP diastolic 68–86; BMI 37.3
[2024-07-05 18:40] LABS: % Basophils 0.5 % (0-2); % Eosinophils 3.6 % (0-6); % Immature Granulocytes 0.2 % (0-0.5); % Lymphocytes 15.8 % (20.5-51.1); % Neutrophils 69.9 % (42.2-75.2); Absolute Basophils 0.1 10^3/uL (0-0.2); Absolute Eosinophils 0.3 10^3/uL (0-0.7); Absolute Lymphocytes 1.5 10^3/uL (1.2-3.4); Absolute Neutrophils 6.7 10^3/uL (1.4-6.5); Hematocrit 41.8 % (39.0-52.0); Hemoglobin 13.8 g/dL (13.0-18.0); Mean Corpuscular Hgb 30.3 pg (27.0-31.0); Mean Corpuscular Volume 91.9 fL (80.0-94.0); Mean Platelet Volume 9.6 fL (7.4-10.4); Nucleated Red Blood Cells % 0 % (-); Platelet Count 260 10^3/uL (130-400); Red Blood Cell Count 4.55 10^6/uL (4.70-6.10); Red Cell Dist. Width 14.1 % (11.5-14.5); White Blood Cell Count 9.5 10^3/uL (4.8-10.8)
[2024-07-05 19:06] LABS: NT-proBNP 930 pg/ml; Troponin I 0.041 ng/ml
[2024-07-05 19:07] LABS: ALT (SGPT) 22 U/L (0-50); AST (SGOT) 33 U/L (17-59); Albumin 4.8 g/dl (3.5-5.0); Alkaline Phosphatase 123 U/L (38-126); Blood Urea Nitrogen 24 mg/dl (9-20); Calcium 9.7 mg/dl (8.4-10.2); Carbon Dioxide 24 mmol/L (22-30); Chloride 102 mmol/L (98-107); Glucose 100 mg/dl (70-99); Potassium 4.3 mmol/L (3.5-5.1); Sodium 137 mmol/L (135-145); Total Bilirubin 0.8 mg/dl (0.2-1.3); Total Protein 7.5 g/dl (6.3-8.2); eGFR > 60.00
--- NOTE | 2024-07-05 21:14 | ED.GENMED ---
History of Present Illness
General
Chief Complaint: Chest Pain
Source: patient and family
Exam Limitations: none
Time Seen by Provider: 07/05/24 19:55
Nursing documentation reviewed up to this point in time: agreed with
History of Present Illness
History of Present Illness:
The patient is a 64-year-old man with a past medical history of coronary artery disease, CHF and A-fib. Patient reports increased work of breathing for 1 week as well as left-sided chest pressure. Patient reports that currently he has very mild
left-sided chest pressure. It is not affected by breathing. Patient reports that he has noticed increased swelling in both legs, especially in his left leg which was recently injured. Patient denies fever and cough. Patient was recently admitted
for CHF and pneumonia.
Past History
Past History
ED Past Medical History: Arrthythmia (Atrial fib), CAD, HTN, Hypercholesterolemia and Other (Kidney stones)
ED Past Surgical History: Cardiac (2012 CABG) and Orthopedic (Left knee replacement. Right hip replacement)
Social History
Tobacco: Non-smoker
Alcohol: Occasional
Drug: None
Personal:
Living: alone
Employment: Other
Family History
Family History: Other
Review of Systems
Review of Systems
Allergies reviewed?: Yes
All Other Systems: ROS reviewed and negative except as documented in HPI and ROS
Constitutional: Reports no symptoms
EENT: Reports no symptoms
Respiratory: Reports trouble breathing
Cardiac: Reports chest pain
ABD/GI: Reports no symptoms
: Reports no symptoms
Musculoskeletal: Reports no symptoms
Skin: Reports no symptoms
Neurological: Reports no symptoms
Endocrine: Reports no symptoms
Hematologic/Lymphatic: Reports no symptoms
Psychiatric: Reports no symptoms
Phy Exam
Physical Exam
Physical Exam:
Physical Exam
General: no apparent distress, not acutely ill
Neck: supple. no meningeal signs. normal psoterior pharynx
Heart: s1/s2 regular rate and rhythm, no murmur. equal radial pulses.
Lungs: no acute respiratory distress. clear bilaterally
Abdomen: normal bowel sounds. not tender. no CVAT
Neuro: alert and oriented. no focal neurological deficits
Skin: no rash
Psychiatric: well kept. interactive and cooperative
Extremities: Trace edema in right lower extremity. 1+ pitting edema in left lower extremity. Negative Homans' sign. No calf tenderness
Scores
Heart Score for Chest Pain Patients
STEMI patient?: No
History: Slightly or Non-Suspicious
ECG: Nonspecific Repolarization
Age: >/= 65 years
Risk Factors: >/= 3 Risk Factors or History of CAD
Troponin: >1 - <3 x Normal Limit
Heart Score for Chest Pain Patients: 6
Heart Score Risk: 20.3% MACE over next 6 weeks
Course
Orders/Labs/Results
Orders:
Orders
07/05/24 18:10
ECG [Electrocardiogram (*1)] Urgent
Reason for Study: Chest Pain
EKG- Treatment ONCE
07/05/24 18:34
Complete Blood Count/With Diff Urgent
Comprehensive Metabolic Panel Urgent
NT-proBNP Urgent
Troponin I Urgent
07/05/24 20:51
Electrocardiogram (*1) Urgent
Reason for Study: Chest Pain
EKG- Treatment ONCE
07/05/24 21:18
Troponin I Urgent
07/05/24 21:36
Aspirin Chewable [Low Strength Aspirin] 324 mg PO NOW STA
Morphine Sulfate 2 mg IV NOW STA
Nitroglycerin Sublingual [Nitrostat (Sublingual)] 0.4 mg SL NOW STA
07/05/24 22:08
D-Dimer Urgent
07/05/24 22:[address] [CT Chest Pe Study] Stat
Comment:
Reason For Exam: chest pain, elevated d-dimer, eval for pe
07/05/24 22:33
Admit/Transfer Patient As Directed
Co-Sign Provider:
Level of Care: Inpatient admission
Assign to:: Telemetry
Physician / Group: hospitalist
Diagnosis: chest pain
Reason for Telemetry: Chest Pain syndromes
Date to Stop Telemetry: 07/07/24
Time to Stop Telemetry: 11:00
Reason for Hospitalization: chest pain
Expected length of stay greater than two midnights?: Yes
ELOS- Estimated Length of Stay in days: 2
I certify the patient meets the requirements for IP care: Yes
PRN Pain Medication Management As Directed
May give lesser potent ordered pain med per pt: Yes
preference::
Protocol:: Medication orders for pain may be administered in a
manner that supports deferring to patient preference
when the pt is:
- Requesting an ordered lesser potent pain medication.
Least to most potent pain medications are defined
as: acetaminophen < NSAID < tramadol < opioids
(morphine, oxycodone, hydromorphone).
- Requesting a lesser dose of the same medication IF
ORDERED.
- Requesting a less intrusive route of administration
if both routes are prescribed by the provider (PO <
IV).
07/05/24 22:34
Code Status As Directed
Resuscitation Status: Full Code
07/05/24 23:00
Flush (0.9% Sodium Chloride) [Flush (Nss)] See Dose Instructions IV PER PROTOCOL
07/07/24 11:00
DC Protocol for Telemetry ONCE
Abnormal Lab Results
07/05/24 07/05/24 07/05/24
18:34 21:18 22:08
RBC 4.55 L 10^6/uL
(4.70-6.10)
Absolute Neuts (auto) 6.7 H 10^3/uL
(1.4-6.5)
Absolute Monos (auto) 1.0 H 10^3/uL
(0.1-0.6)
Lymphocytes % 15.8 L %
(20.5-51.1)
Monocytes % 10.0 H %
(1.7-9.3)
D-Dimer 1.72 H ug/mlFEU
(0.00-0.50)
BUN 24 H mg/dl
(9-20)
Glucose 100 H mg/dl
(70-99)
Troponin I 0.041 H* ng/ml 0.040 H* ng/ml
07/05/24 18:34
07/05/24 18:34
Vital Signs
Initial and Last Documented VS:
Initial Vital Signs
Temp Pulse Resp BP Pulse Ox
98.7 F 87 16 141/86 98
07/05/24 18:15 07/05/24 18:15 07/05/24 18:15 07/05/24 18:15 07/05/24 18:15
Last Documented Vital Signs
Temp Pulse Resp BP Pulse Ox
98.7 F 85 17 134/68 97
07/05/24 18:15 07/05/24 22:01 07/05/24 22:01 07/05/24 22:01 07/05/24 22:01
MDM/Problems Addressed
Differential Diagnosis Includes:
Acute coronary syndrome, acute CHF, PE
MDM/Problems Addressed:
Patient presents with acute chest pain or shortness of breath
Chronic conditions affecting care: CAD
Acute Exacerbation and/or Progression of Chronic Illness: CAD
*Pulse Oximetry
Patient hypoxic: no
*EKG
Interpreted by ED Provider?: Yes
Interpretation: abnormal
Comparison EKG: changes noted
Rate: normal
Rhythm: sinus and PAC's
[place]: left axis deviation
Interval: normal interval
QRS Pattern: normal QRS
Ischemia: non-specific ST changes
*Lock Assembler Interpretation
Rate: normal
Interpretation: normal
Rhythm: sinus
*Critical Care Note
Total Time (30-74mins, 75-104mins- exclusive of procedures): 42 minutes
comment:
42 minutes of critical care given to patient including frequent reassessments of his chest pain which has remained extremely mild, looking over his EKGs, reviewing his recent admission, speaking to hospitalist and cardiology
Data Reviewed
Review of Other/Old Records Reveals: Discharge Summary (Discharge summary reviewed from patient's recent hospitalization when he was admitted for pulmonary edema and pneumonia)
Source: patient and family
Patient Management
Social determinants of health affecting care: Living situation and Strong social support
Discussion with other providers: Hospitalist and Other (Dr. Chacho Castellano from cardiology agreed to come in and evaluate the patient)
ED Attending Note
-
Portions of this chart may have been created with voice recognition software.� Occasional wrong word or��sound alike� substitutions may have occurred due to the inherent limitations of voice recognition software.
Discharge Plan
Departure
Patient Disposition: Admit
Date of Disposition: 07/05/24
Time of Disposition: 21:18
Admit to: Telemetry
Presentation/result/management discussed w/ accepting MD/DO: Hospitalist
Patient with high blood pressure during this ER visit?: Yes
Condition: Good
Covid-19: Not Applicable
Discharge Problem:
Acute dyspnea, Chest pain, Elevated troponin
Interventions
Interventions:
*Risk Screen - Suicide Last Done: 07/05/24 18:15
*General Assessment Last Done: 07/05/24 18:15
*Neglect/Abuse Screening Last Done: 07/05/24 18:15
ED- Fall Risk Assessment Last Done: 07/05/24 19:35
*ED COVID-19 Vaccine History Last Done: 07/05/24 18:15
ED- Cardiac Assessment Last Done: 07/05/24 19:32
[2024-07-05] MEDS: LOW STRENGTH ASPIRIN 324 MG PO (21:54)
[2024-07-05] MEDS: NITROSTAT (SUBLINGUAL) 0.4 MG SL (21:54)
--- NOTE | 2024-07-05 22:23 | CON.CAR ---
Consultation
Consultation Request
Date/Time Consultation Requested: 07/05/2024 at 9:15 PM
Date/Time Consultation Performed: 07/05/2024 at 9:45 PM
Requesting Provider: Susy Triplett MD
Performing Provider: Andrea Castellano MD
Reason for Consultation: chest pain
Medical History
-
Chief Complaint: chest pain
History of Present Illness:
64 y/o male with CAD with CABG 2011, AFIB s/p fib/flutter ablation 2021, HFpEF, PATRIZIA on CPAP, obesity, hx CKD3A (per most recent nephro noted), and hypertension who is here for evaluation of chest pain. He reports that about a week ago while he was
swimming for exercise, he felt more dyspneic than usual. This happened again a few days later and he has not exercised since. Today he was preparing dinner when he noted that he felt short of breath with some mild chest pressure. He also had some
lower extremity edema. He took an extra dose of Lasix and the lower extremity edema has since resolved. He was asked by his and daughter to come into the ER given his symptoms of dyspnea and chest pressure. Here he continues to complain of
3/10 chest pressure and shortness of breath. He last took his Eliquis at 6 PM this evening.
Past Medical History
Past Medical History: Arrhythmias, CAD, CHF and HTN
Social History
Tobacco: Non-Smoker
Alcohol: Occasional
Family History
Family History: Other (dad CHF)
Allergies / Home Medications
Allergy/AdvReac Type Severity Reaction Status Date / Time
chlorthalidone Allergy Nausea Verified 07/05/24 18:15
pollen extracts Allergy coughing, Verified 07/05/24 18:15
wheezing,
sneezing
oxycodone HCl [From Percocet] AdvReac upset Verified 07/05/24 18:15
stomach
�Medication �Instructions �Recorded �Confirmed �Type
apixaban 5 mg tablet (Eliquis) 10 mg PO BID Blood clot 11/06/21 07/05/24 History
prevention/tx
rosuvastatin 40 mg tablet (Crestor) 40 mg PO QPM High cholesterol 11/11/21 07/05/24 History
dapagliflozin propanediol 10 mg 10 mg PO DAILY Heart Failure 12/06/21 07/05/24 History
tablet (Farxiga)
amlodipine 5 mg tablet 10 mg PO DAILY Blood Pressure 08/09/23 07/05/24 History
metoprolol succinate 50 mg 100 mg PO DAILY atrial fibrillation 08/09/23 07/05/24 History
tablet,extended release 24 hr
multivitamin 1 tab PO DAILY Supplement 01/26/24 07/05/24 History
acetaminophen 325 mg tablet 650 mg (2 x 325 mg) PO Q6HPRN PRN 01/28/24 07/05/24 Rx
mild pain #14 tabs
furosemide 40 mg tablet (Lasix) 40 mg PO DAILY Fluid 05/20/24 07/05/24 Rx
retention/Swelling #30 tabs
hydralazine 25 mg tablet 50 mg PO TID Blood pressure 07/05/24 07/05/24 History
Review of Systems
-
All other systems: Negative unless noted
Physical Exam
Vital Signs
Temp Pulse Resp BP Pulse Ox
98.7 F 85 17 134/68 97
07/05/24 18:15 07/05/24 22:01 07/05/24 22:01 07/05/24 22:01 07/05/24 22:01
Lab Results
07/05/24 18:34
07/05/24 18:34
Troponin I 0.040 ng/ml H* 07/05/24 21:18
Byn-Y-Lkaduthmzwc Pept 930 pg/ml 07/05/24 18:34
Physical Exam
General: Well Developed and Well Nourished
HEENT: Normocephalic
Respiratory: Clear and Non Labored Respirations
Cardiac: S1/S2 and Regular Rhythm; Negative Murmur, Rub or Peripheral Edema
Neuro: AO x 3
Impression / Plan
-
64 y/o male with CAD with CABG 2011, AFIB s/p fib/flutter ablation 2021, HFpEF, PATRIZIA on CPAP, obesity, hx CKD3A (per most recent nephro noted), and hypertension who is here for evaluation of chest pain and subacute dyspnea on exertion.
Chest pain and dyspnea
-Differential includes NSTEMI vs. PE vs. pericarditis
-Fairly low suspicion for plaque rupture given his flat troponins which are lower than prior admission and no improvement of symptoms with nitro
-Add on D-dimer
-Check third troponin. Can stop trending if flat
-Keep n.p.o. for stress test versus catheterization tomorrow
-No need for heparin since he took his Eliquis this evening
-S/p ASA 325 mg in ED
CAD s/p CABG 2011
-Continue rosuvastatin 40 mg daily
-No chronic ASA due to systemic anticoagulation
HFpEF
-Chronic. Stable.
-Hold dapagliflozin for potential procedure
-Resume Lasix after possible procedure
Paroxysmal A-fib
-Hold Eliquis for potential procedure
-Continue home metoprolol
Hypertension
-Continue amlodipine 10 mg daily, hydralazine 50 mg 3 times daily, and metoprolol succinate 100 mg daily
Data Reviewed
-
EKG: Tracing Personally Visualized and interpreted, Discussed with Physician, Discussed with Nurse, Discussed with Patient and Discussed with Family
Medical Tests (Nuc Med, Echo etc): Report Reviewed by me, Discussed with Nurse, Discussed with Patient and Discussed with Family
Labs: Labs Reviewed by me, Discussed with Physician, Discussed with Patient and Discussed with Family
Old Records: Reviewed
[2024-07-05 22:27] LABS: D-Dimer 1.72 ug/mlFEU (0.00-0.50)
--- NOTE | 2024-07-05 22:40 | HPS.HSE ---
Family Physician
-
Family Physician: Yovani Rodriguez
Chief Complaint
-
Chest pain
History of Present Illness
Patient is a 66-year-old male with past medical history of CAD status post CABG, possible atrial fibrillation status post ablation, heart failure with preserved EF, PATRIZIA on CPAP, CKD and hypertension who presents emergency department for chest pain.
He reports that he has been feeling well for over a week now. He had a left lower leg injury few weeks ago. He started exercising again last week trying to get back to his usual level of exercising which includes swimming and running several labs.
He is able to do the exercise but usually has to stop due to shortness of breath. He catches his breath for about a minute and then returns to the exercise to complete the session. He states that in addition to dyspnea with exercise he also has
dyspnea after walking up a flight of stairs where he has to rest at the top of the flight. This has also been going on for about a week. He denies any nausea vomiting or diaphoresis. He denies having any chest pain. He denies any palpitations
lightheadedness or dizziness. What brought him to the hospital was the dyspnea on exertion according to him and left lower extremity swelling. He took an additional dose of Lasix 40 mg this evening prior to coming to the ED.
Despite initial treatments with nitro and aspirin in the ED he did not feel better. However after he urinated a large amount patient stated that is starting to feel better.
In the ED he was normotensive with a blood pressure of 134/68, afebrile, pulse was 85 and regular. Drop troponin was 0.04, ECG shows normal sinus rhythm without any acute ST or T wave changes rate was 82. BNP was 930. CBC was unremarkable. His
electrolytes BUN/creatinine were also similar to prior.
Patient is on Eliquis for paroxysmal atrial fibrillation and he took his last dose this evening at 6 PM.
Medical History
Past Medical History
Past Medical History: Reports Arrhythmia (Proximal atrial fibrillation), CAD (Status post CABG), CHF (Preserved EF), HTN and Other (PATRIZIA on CPAP)
Past Surgical History: Reports Cardiac (CABG)
Social History
Tobacco: Non-smoker
Alcohol: Occasional
Drug: None
Personal:
Living: With Family
Family History
Family History: Not pertinent
Allergies / Home Medications
Allergies reflects when Allergies were last updated in [facility].
Home Medications with original date entered in [facility]
Allergy/Medication List:
Allergies
Allergy/AdvReac Type Severity Reaction Status Date / Time
chlorthalidone Allergy Nausea Verified 07/05/24 18:15
pollen extracts Allergy coughing, Verified 07/05/24 18:15
wheezing,
sneezing
oxycodone HCl [From Percocet] AdvReac upset Verified 07/05/24 18:15
stomach
Home Medications
apixaban 5 mg tablet (Eliquis) 10 mg PO BID Blood clot prevention/tx 11/06/21
rosuvastatin 40 mg tablet (Crestor) 40 mg PO QPM High cholesterol 11/11/21
dapagliflozin propanediol 10 mg tablet (Farxiga) 10 mg PO DAILY Heart Failure 12/06/21
amlodipine 5 mg tablet 10 mg PO DAILY Blood Pressure 08/09/23
metoprolol succinate 50 mg tablet,extended release 24 hr 100 mg PO DAILY atrial fibrillation 08/09/23
multivitamin 1 tab PO DAILY Supplement 01/26/24
acetaminophen 325 mg tablet 650 mg (2 x 325 mg) PO Q6HPRN PRN mild pain #14 tabs 01/28/24
furosemide 40 mg tablet (Lasix) 40 mg PO DAILY Fluid retention/Swelling #30 tabs 05/20/24
hydralazine 25 mg tablet 50 mg PO TID Blood pressure 07/05/24
Review of Systems
-
History Source: Patient
Constitutional: Reports No Symptoms
EENT: Reports No Symptoms
Respiratory: Reports Trouble Breathing
Cardiac: Reports Chest Pain
Abdomen/GI: Reports No Symptoms
: Reports No Symptoms
Musculoskeletal: Reports No Symptoms
Skin: Reports No Symptoms
Neurological: Reports No Symptoms
Endocrine: Reports No Symptoms
Hematologic/Lymphatic: Reports No Symptoms
Psych: Reports No Symptoms
Physical Exam
Vital Signs
Vital Signs
Temp Pulse Resp BP Pulse Ox
98.7 F 85 17 134/68 97
07/05/24 18:15 07/05/24 22:01 07/05/24 22:01 07/05/24 22:01 07/05/24 22:01
Physical Exam
General: Well Developed, Well Nourished and Comfortable
HEENT: NormoCephalic, Anicteric, Moist mucous membranes and Atraumatic
Respiratory: Clear
Cardiac: S1/S2 and Regular Rhythm
Breast: Deferred by me
GI: Soft, Non Tender and Normal Bowel Sounds
Rectal: Deferred by Provider
Genito-urinary: Deferred by me
Musculoskeletal: No Clubbing, No Cyanosis and No Edema
Skin: Warm
Neuro: AO x 3 and Nonfocal/grossly intact
Psych: Calm
Laboratory Results
-
07/05/24 18:34
07/05/24 18:34
Laboratory Results
Total Bilirubin 0.8 mg/dl (0.2-1.3) 07/05/24 18:34
AST 33 U/L (17-59) 07/05/24 18:34
ALT 22 U/L (0-50) 07/05/24 18:34
Alkaline Phosphatase 123 U/L (38-126) 07/05/24 18:34
Troponin I 0.040 ng/ml H* 07/05/24 21:18
Data Reviewed
-
CT Scan: Report Reviewed by me
Medical Tests (Nuc Med, Echo, EKG etc): Image Personally Visualized and interpreted
Lab Data: Labs Reviewed by me
Old Records: Reviewed
Impression/Plan
-
IMPRESSION:
64 y.o with h/o CA s/p CABG presenting with chest pain. He actually mostly complains of dyspnea on exertion to me which started about 1 week ago. He continually denied substernal chest pressure, nausea vomiting or diaphoresis. No palpitations.
ECG is nonischemic and regular. Troponin was 0.04 x 2 with a third 1 pending. No chest x-ray. No improvement with nitrogylcerin/aspirin. Already on eliquis.
PLAN:
1. Atypical Chest pain - Suspect possibly mild CHF exacerbation, however BNP is much lower than last month. Can't rule out ischemia. D-dimer elevated despite being on anticoagulation. H
- admit to telemetry
- check CT PE, esr
- cycle cardiac enzymes x 1 more and hold if flat
- pain control prn
- echo in am
- npo after midnight
- no heparin, last dose of eliquis this evening, holding eliquis for potential procedure
- continue statin, continue metoprolol
- cardiology consulted and aware
2.CHF - no evidence of volume overload
- holding farxiga for procedure
- holding lasix, restart after procedure
- continue metoprolol
3. Paroxysmal A-fib
- continue metoprolol
- holding eliquis
4. PATRIZIA
- home cpap hs
DVT PPX - SCD for now as on AC
Code status - full code
[2024-07-06] VITALS (10 sets, daily range): BP systolic 122–150; BP diastolic 67–103; BMI 36.2; BMI 37.3; BMI 36.1
[2024-07-06 02:30] LABS: Troponin I 0.046 ng/ml
[2024-07-06 04:14] LABS: Hematocrit 39.6 % (39.0-52.0); Hemoglobin 13.3 g/dL (13.0-18.0); Mean Corp Hgb Conc. 33.6 g/dL (33.0-37.0); Mean Corpuscular Hgb 30.9 pg (27.0-31.0); Mean Corpuscular Volume 92.1 fL (80.0-94.0); Mean Platelet Volume 9.4 fL (7.4-10.4); Platelet Count 245 10^3/uL (130-400); Red Cell Dist. Width 14.1 % (11.5-14.5); White Blood Cell Count 8.5 10^3/uL (4.8-10.8)
[2024-07-06 04:38] LABS: Blood Urea Nitrogen 19 mg/dl (9-20); Calcium 9.6 mg/dl (8.4-10.2); Carbon Dioxide 23 mmol/L (22-30); Chloride 104 mmol/L (98-107); Estimated Creatinine Clearance 86 ml/min; Glucose 98 mg/dl (70-99); HDL Cholesterol 43 mg/dl; LDL Cholesterol, Calculated 55 mg/dl; Sodium 140 mmol/L (135-145); Total Cholesterol 117 mg/dl (50-199); Triglyceride 96 mg/dl (10-149); Very Low Density Lipoprotein 19 mg/dl (0-30); eGFR > 60.00
--- NOTE | 2024-07-06 06:19 | PTCARENOTE ---
Pt admitted to room 2242. Pt AAOx3. Denies chest pain. Pt able to ambulate independently. Pt oriented to room, call nieves in reach. NPO for possible cath
--- NOTE | 2024-07-06 07:17 | W.PN.HOSP.TC ---
Today's Communication/Plan
-
echo
Assessment / Plan
Assessment / Plan
Mr. Michael Chaudhry is a 64yo M pmh HFpEF (EF 55-60%), CAD s/p CABG, afib on eliquis, HTN, HLD, CKD admitted for chest pain.
Atypical chest pain
- BNP
- D-dimer elevated despite being on eliquis
- ECG: sinurs rhythm w PACs
- CT PE: no evidence of PE, small volume loculated pleural fluid w/in R major fissure, bibasilar atelectasis, prominent mediastinal and bilateral hilar lymph nodes
- pain control
- echo pending
- hold eliquis for potential procedure
- cardiology consulted
HFpEF
- EF 55-60%
- hold farxiga, lasix for procedure
- cont metoprolol
Paroxysmal afib
- cont metoprolol
- hold eliquis
PATRIZIA
- home cpap
HTN, HLD
- cont metoprolol, statin
Diet: NPO
DVT prophylaxis: held for procedure
Code status: FULL CODE
Anticipated Discharge: 24 - 48 hours
Subjective/Interval History
-
Date of Service: July 06, 2024
Mr. Michael Chaudhry is a 64yo M pmh HFpEF (EF 55-60%), CAD s/p CABG, afib, HTN, HLD, CKD admitted for chest pain. He has had dyspnea on exertion with LLE swelling for the past week. CP not improved w nitro and asa in the ED. Pt became agitated at this
provider for asking questions. He declined to answer any further questions and declined a physical exam.
Objective Data
-
Labs:
Laboratory Results
07/06/24
03:58
WBC 8.5
Hgb 13.3
Hct 39.6
Plt Count 245
Sodium 140
Potassium 4.0
Chloride 104
Carbon Dioxide 23
BUN 19
Creatinine 1.1
Glucose 98
Calcium 9.6
Vital Signs:
Vital Signs
Temp Pulse Resp BP Pulse Ox
97.8 F 73 16 136/75 98
07/06/24 03:41 07/06/24 03:44 07/06/24 03:41 07/06/24 03:44 07/06/24 03:41
Review of Systems
-
History Source: Patient
Constitutional: Reports No Symptoms
EENT: Reports No Symptoms Reported
Respiratory: Reports No Symptoms
Cardiac: Reports No Symptoms
Abdomen/GI: Reports No Symptoms
Musculoskeletal: Reports No Symptoms
Neuro: Reports No Symptoms
Physical Exam
-
General: Well Developed and Well Nourished
Psych: Agitated
[2024-07-06] MEDS: COLACE 100 MG PO (08:14)
[2024-07-06] MEDS: FARXIGA 10 MG PO (08:14)
[2024-07-06] MEDS: APRESOLINE 50 MG PO ×3 (08:14→21:19)
[2024-07-06] MEDS: THERAGRAN 1 TABLET PO (08:14)
[2024-07-06] MEDS: TOPROL XL 100 MG PO (08:14)
[2024-07-06] MEDS: NORVASC 10 MG PO (08:14)
--- NOTE | 2024-07-06 08:57 | PTCARENOTE ---
Assumed care at 0700. Patient angry and verbally agitated about having to repeat his reasons for seeking hospital care. Explained this is the normal process. Patient NPO as of now, denies chest pain. NSR with PVC's, trace left leg edema with an
abrasion on the lower leg. Wearing CPAP overnight. Troponin at 0700 was 0.050, lights dimmed and call nieves in reach
--- NOTE | 2024-07-06 09:12 | W.PN.CD ---
Today's Communication / Plan
-
-N.p.o. at midnight for cardiac catheterization in AM.
Impression / Plan
-
64 y/o male with CAD with CABG 2011, AFIB s/p fib/flutter ablation 2021(CTI and PVI), HFpEF, PATRIZIA on CPAP, obesity, hx CKD3A (per most recent nephro noted), and hypertension who is here for evaluation of chest pain and subacute dyspnea on exertion.
Chest pain and dyspnea
-Differential includes NSTEMI vs. PE vs. pericarditis
-Fairly low suspicion for plaque rupture given his flat troponins which are lower than prior admission and no improvement of symptoms with nitro
-D-dimer elevated�status post chest CT with PE protocol with no evidence of PE
-Troponin has gradually been increasing since May from 0.17 and went down to 0.04 and now at 0.05.
-Keep n.p.o. for catheterization tomorrow.
-Patient took Eliquis yesterday. Today we can start heparin drip. Will continue aspirin 81 mg once a day.
CAD s/p CABG 2011
-Continue rosuvastatin 40 mg daily
-No chronic ASA due to systemic anticoagulation
HFpEF
-Chronic. Stable.
-Hold dapagliflozin for potential procedure
-Resume Lasix after possible procedure
Paroxysmal A-fib
-Hold Eliquis for potential procedure
-Continue home metoprolol
Hypertension
-Continue amlodipine 10 mg daily, hydralazine 50 mg 3 times daily, and metoprolol succinate 100 mg daily
Physical Exam
Vital Signs/Labs
Vital Signs
Temp Pulse Resp BP Pulse Ox
97.8 F 74 16 150/71 98
07/06/24 03:41 07/06/24 08:15 07/06/24 03:41 07/06/24 07:54 07/06/24 03:41
07/05/24 07/06/24 07/07/24
06:59 06:59 06:59
Actual Weight 117.5 kg
07/06/24 03:58
07/06/24 03:58
Triglycerides 96 mg/dl (10-149) 07/06/24 03:58
LDL Cholesterol, Calc 55 mg/dl 07/06/24 03:58
VLDL Cholesterol, Calc 19 mg/dl (0-30) 07/06/24 03:58
HDL Cholesterol 43 mg/dl 07/06/24 03:58
07/05/24
18:34
Rns-S-Dnmozfgsbbo Pept 930
LAB Results
07/05/24 07/05/24 07/06/24
18:34 21:18 01:15
Troponin I 0.041 H* 0.040 H* 0.046 H*
07/06/24 07/06/24
03:58 07:27
Troponin I 0.050 H* 0.050 H*
Physical Exam
Constitutional: No acute distress and Comfortable
EENT: Anicteric and Moist mucous membranes
Cardiovascular: Rhythm & rate is regular, Pedal edema is absent and JVD pressure is normal
Respiratory: Respiratory effort normal, Lungs clear to auscul. and Wheeze Absent
GI: Soft, Distention absent, Non tender and Normal bowel sounds
Neuro/Psych: Alert, Oriented and AO x 3
Data Reviewed
-
Date of Service: July 06, 2024
Medical Decision Making: Reviewed Test Results, Test Interpretation and Review of Case with other Provider
EKG: Tracing Personally Visualized and interpreted
Echo: Report Reviewed by me
Labs: Labs Reviewed by me
Old Records: Reviewed
[2024-07-06 10:23] LABS: Glycohemoglobin (HgbA1c) 4.6 % (4.0-5.6)
[2024-07-06] MEDS: LOW STRENGTH ASPIRIN 81 MG PO (12:51)
[2024-07-06 12:59] LABS: Hematocrit 40.1 % (39.0-52.0); Hemoglobin 13.4 g/dL (13.0-18.0); Mean Corp Hgb Conc. 33.4 g/dL (33.0-37.0); Mean Corpuscular Volume 92.8 fL (80.0-94.0); Mean Platelet Volume 9.7 fL (7.4-10.4); Platelet Count 254 10^3/uL (130-400); Red Blood Cell Count 4.32 10^6/uL (4.70-6.10); Red Cell Dist. Width 13.9 % (11.5-14.5); White Blood Cell Count 10.6 10^3/uL (4.8-10.8)
[2024-07-06 13:12] LABS: APTT 32.3 Sec (23.4-35.0)
[2024-07-06] MEDS: HEPARIN 5000 UNITS IV (13:46)
[2024-07-06] MEDS: HEPARIN 25000 UNITS/250 ML IV (13:47)
[2024-07-06 16:14] LABS: Hepatitis C Antibody Negative (Negative)
[2024-07-06] MEDS: CRESTOR 40 MG PO (17:19)
--- NOTE | 2024-07-06 17:30 | PTCARENOTE ---
Patient returning from the rest room, mild dyspneic resolved with rest. Anxious about his procedure tomorrow and requesting not to be woken up during night to prepare for his day. Explained that we can cluster care to limit sleep interruption. VSS,
eating dinner, call nieves in reach
[2024-07-06 20:45] LABS: APTT 56.6 Sec (23.4-35.0)
[2024-07-06] MEDS: COLACE PO (21:05)
[2024-07-07] VITALS (16 sets, daily range): BP systolic 94–160; BP diastolic 66–100; BMI 35.9
[2024-07-07] MEDS: HEPARIN 25000 UNITS/250 ML IV (04:26)
[2024-07-07 04:59] LABS: Hematocrit 43.5 % (39.0-52.0); Hemoglobin 14.2 g/dL (13.0-18.0); Mean Corp Hgb Conc. 32.6 g/dL (33.0-37.0); Mean Corpuscular Hgb 30.5 pg (27.0-31.0); Mean Corpuscular Volume 93.3 fL (80.0-94.0); Mean Platelet Volume 9.8 fL (7.4-10.4); Platelet Count 272 10^3/uL (130-400); Red Blood Cell Count 4.66 10^6/uL (4.70-6.10); Red Cell Dist. Width 14.1 % (11.5-14.5)
[2024-07-07 05:29] LABS: Blood Urea Nitrogen 21 mg/dl (9-20); Calcium 9.6 mg/dl (8.4-10.2); Carbon Dioxide 23 mmol/L (22-30); Chloride 106 mmol/L (98-107); Estimated Creatinine Clearance 94 ml/min; Glucose 104 mg/dl (70-99); Potassium 4.3 mmol/L (3.5-5.1); Sodium 139 mmol/L (135-145); eGFR > 60.00
--- NOTE | 2024-07-07 07:30 | W.PN.HOSP.TC ---
Today's Communication/Plan
-
.
Assessment / Plan
Assessment / Plan
Mr. Michael Chaudhry is a 64yo M pmh HFpEF (EF 55-60%), CAD s/p CABG, afib on eliquis, HTN, HLD, CKD admitted for chest pain.
Atypical chest pain
- BNP
- D-dimer elevated despite being on eliquis
- ECG: sinurs rhythm w PACs
- CT PE: no evidence of PE, small volume loculated pleural fluid w/in R major fissure, bibasilar atelectasis, prominent mediastinal and bilateral hilar lymph nodes
- pain control
- echo pending
- hold eliquis for potential procedure today
- cardiology consulted
HFpEF
- EF 55-60%
- hold farxiga, lasix for procedure
- cont metoprolol
Paroxysmal afib
- cont metoprolol
- hold eliquis
PATRIZIA
- home cpap
HTN, HLD
- cont metoprolol, statin
Diet: NPO
DVT prophylaxis: held for procedure
Code status: FULL CODE
Anticipated Discharge: 24 - 48 hours
Subjective/Interval History
-
Date of Service: July 07, 2024
Mr. Michael Chaudhry is a 64yo M pmh HFpEF (EF 55-60%), CAD s/p CABG, afib on eliquis, HTN, HLD, CKD admitted for chest pain. He is scheduled for a cardiac cath today. Pt agitated this morning per nurse. Pt still agitated and told this provider to 'get
out.'
Objective Data
-
Labs:
Laboratory Results
07/06/24 07/07/24 07/07/24
20:22 04:22 11:35
WBC 11.0 H
Hgb 14.2
Hct 43.5
Plt Count 272
APTT 56.6 H 61.0 H Pending
Sodium 139
Potassium 4.3
Chloride 106
Carbon Dioxide 23
BUN 21 H
Creatinine 1.0
Glucose 104 H
Calcium 9.6
Vital Signs:
Vital Signs
Temp Pulse Resp BP Pulse Ox
97.8 F 72 18 152/77 97
07/07/24 04:15 07/07/24 04:45 07/07/24 04:15 07/07/24 04:15 07/07/24 04:15
I&O
07/06/24 07/07/24 07/08/24
06:59 06:59 06:59
Intake Total 200 / 200
Balance 200 / 200
Review of Systems
-
History Source: Patient
Constitutional: Reports No Symptoms
EENT: Reports No Symptoms Reported
Respiratory: Reports No Symptoms
Cardiac: Reports No Symptoms
Abdomen/GI: Reports No Symptoms
Genitourinary: Reports No Symptoms
Musculoskeletal: Reports No Symptoms
Skin: Reports No Symptoms
Neuro: Reports No Symptoms
Physical Exam
-
General: Well Developed, Well Nourished and Obese
HEENT: Normocephalic, Atraumatic, Moist Mucous Membranes and Anicteric
Respiratory: Clear to Auscultation
Cardiac: Regular Rhythm and S1/S2; Negative Murmur, Rub or Gallop
GI: Soft, Nontender, Nondistended and Normal Bowel Sounds
Musculoskeletal: No Clubbing, No Cyanosis and No Edema
Skin: Warm and Dry
Psych: Agitated
--- NOTE | 2024-07-07 08:00 | PTCARENOTE ---
Assumed care of pt from prev nsg shift; Pt AAOx3, drowsy but easily arousable. Pt w/VS stable w/HR in the 70's, BP 149/88 this AM, & 98% on CPAP. Pt using his own CPAP as ordered. Pt is SR w/occas PVC's on telemetry monitoring. Pt w/Heparin drip
infusing as ordered through a patent IV line. This RN discussed plan of care w/pt & pt verbalized understanding. Pt has been NPO since midnight for cardiac cath today. Pt w/call nieves within reach & plan of care ongoing.
[2024-07-07] MEDS: FARXIGA 10 MG PO (09:33)
[2024-07-07] MEDS: TOPROL XL 100 MG PO (09:33)
[2024-07-07] MEDS: COLACE 100 MG PO (09:33)
[2024-07-07] MEDS: APRESOLINE 50 MG PO ×3 (09:33→22:34)
[2024-07-07] MEDS: LOW STRENGTH ASPIRIN 81 MG PO (09:33)
[2024-07-07] MEDS: NORVASC 10 MG PO (09:34)
[2024-07-07] MEDS: THERAGRAN 1 TABLET PO (09:34)
--- NOTE | 2024-07-07 10:09 | CM ---
Chart reviewed. Patient is waiting for his Cardiac Cath. Patient is independent of ADLS, lives at home alone but has a S.O, 2 STH, 0 LIVE, 0 DME. Plan is for the patient to return home. CM to follow
[2024-07-07 12:47] LABS: APTT 77.7 Sec (23.4-35.0)
[2024-07-07] MEDS: APRESOLINE PO (17:43)
--- NOTE | 2024-07-07 17:50 | ITS.CL.PN ---
[facility] - Procedure Note
Procedure
Procedure Note:
CARDIAC CATHETERIZATION REPORT
Date of Procedure: 07/07/2024
Referring: Dr. Jane Eduardo MD
Indication: Chest pain, ACS
PROCEDURE(S)
1. left heart catheterization
2. coronary angiography
3. bypass graft angiography
ACCESS: 6F left radial artery (closure: radial band)
CATHETERS
1. 6F DOUGLAS
2. 6F JL4
3. 6F JR4
HEMODYNAMIC DATA
LV 152/-5 (EDP 13) mmHg
AO 148/52 (mean 90) mmHg
CORONARY ANGIOGRAPHY
Dominance: right
LM: Large with mild proximal disease
LAD: Large vessel giving rise to a large D1. There are serial moderate-severe stenoses in the mid-vessel and competitive flow is visualized distally from the PALAFOX. There is a small diagonal branch that fills late (best seen on MAURITANIAN caudal) that also
appeared similar in 2012.
LCx: Moderate caliber vessel giving rise to a small high rising OM1, moderate caliber OM2, and several small LPL branches. There are focal moderate stenoses in the proximal aspect of OM1 that are unchanged from angiography in 2012. The OM2 is flush
occluded and fills briskly via the SVG. The remainder of the LCx has mild disease.
RCA: Large vessel with severe proximal disease and a total occlusion in the mid section. The RPDA and RPL system fills briskly via the SVG.
BYPASS GRAFT ANGIOGRAPHY:
PALAFOX-LAD: the PALAFOX is taken as a pedicle and forms an anastomosis with the mid-LAD.
GNC-WD0-KNAU: The SVG has a patent aorto-ostial anastomosis and provides sequential touchdowns to the OM1 and RPD.
RADIATION: dose 457 mGy; DAP 47 Gy*cm2; fluoroscopy time 8.8 min
CONCLUSIONS
1. multivessel coronary artery disease status post CABG, with patent grafts and no new epicardial disease to explain the patient's presentation
2. normal LV filling pressure and no significant gradient across the aortic valve
RECOMMENDATIONS
1. expectant management after cardiac catheterization via left radial approach
2. aggressive secondary prevention of coronary artery disease
3. consideration of treatment for MIN[place]A with addition of long-acting nitrate
Copy to: Dr. Rakesh Parker MD (technician plant and maintenance); Dr. Yovani Rodriguez MD (PCP)
Signed: Christian Gasca MD, PhD
--- NOTE | 2024-07-07 18:17 | PTCARENOTE ---
Rec'd report from Aliza in the [employer] & rec'd pt back AAOx3 w/no c/o CP or SOB. Pt w/L radial band on w/no signs of active bleeding or hematoma. Pt's SpO2 on L hand 96% on RA. Pt's VS stable. at bedside. Pt w/call nieves within reach & no
addtl needs at this time.
[2024-07-07] MEDS: CRESTOR 40 MG PO (18:35)
[2024-07-07] MEDS: COLACE PO (20:14)
[2024-07-07] MEDS: ELIQUIS 5 MG PO (22:34)
--- NOTE | 2024-07-07 22:50 | PTCARENOTE ---
Assumed care of pt at change of shift. NSR on tele with first degree AVB and occasional PVCs. Pt denies CP and SOB. TR band removed without complication at 2144, site dressed with gauze and Tegaderm, dressing c/d/i. Pt ambulating independently
in room w/o difficulty. Pt told he could be discharged this evening following TR band removal, this RN confirmed plan with Dr. Gasca at 2027. Pt anxious to leave and stating he would leave AMA if no discharge order placed. Dr. De La O, supervisor sample preparation
design assembler notified and stated okay for PA to place discharge order but unsure if he needs any new medications upon discharge. D/C order placed by NEELIMA Jonas. Discharge instructions printed as available and reviewed with pt, however pt
educated to follow up with Cardiology tomorrow to confirm discharge instructions and medications. Eliquis due to restart at 2200 and administered prior to discharge. Pt and deny any further questions or concerns. Pt discharged home with
at 2240 with all personal belongings. IV and telemetry pack removed. Pt escorted out by this RN.
--- NOTE | 2024-07-07 22:55 | W.DCSUMMARY ---
Documented by User: Luly Phillip DO, Resident 07/08/24 12:29
Discharge Summary
Discharge Data
Date of Admission: 07/05/24
Date of Discharge: 07/08/24
-
Pending Results: No
Hospital Course
Pt came in with atypical chest pain, dyspnea on exertion for the past week, and LLE swelling. CP not improved w nitro and asa in the ED. ECG significant for sinus rhythm with PACs. D-dimer elevated despite being on eliquis. CT PE: no evidence of PE,
small volume loculated pleural fluid w/in R major fissure, bibasilar atelectasis, prominent mediastinal and bilateral hilar lymph nodes. CP unaffected by leaning forward, no rubs heard on auscultation. Echo positive for LVEF 55-60%, negative for
pericardial effusion. Cardiac catheterization positive for multivessel coronary artery disease status post CABG, with patent grafts and no new epicardial disease to explain the patient's presentation; cath also positive for normal LV filling
pressure and no significant gradient across the aortic valve. Post procedure, pt threatened to leave AMA, Dr. De La O notified, and pt discharged by NEELIMA Jonas. Pt recommended to f/u with cardiology for medication management.
Discharge Plan
-
Patient Disposition: Home (Routine Discharge)
Discharge Diagnosis/Procedures: Cardiac cath
Diet: Low Cholesterol
Driving Restrictions: No driving for 24 hours
Stand Alone Forms: DC Instructions- Cath/EP Lab
Referrals:
Promise Howard CRNP [Specified Professional Personl] - 08/03/24 9:20 am
Yovani Rodriguez MD [Family Provider] -
Prescriptions:
No Action
Eliquis 5 MG tablet
5 mg PO BID
Patient Comments:
rosuvastatin [Crestor] 40 MG tablet
40 mg PO QPM
dapagliflozin propanediol [Farxiga] 10 MG tablet
10 mg PO DAILY
metoprolol succinate 50 mg Tablet Extended Release 24 Hr
100 mg PO DAILY
amlodipine 5 mg Tablet
10 mg PO DAILY
multivitamin Tablet
1 tab PO DAILY
acetaminophen 325 mg tablet
650 mg PO Q6HPRN PRN (Reason: mild pain) Qty: 14 0RF
furosemide [Lasix] 40 mg tablet
40 mg PO DAILY Qty: 30 0RF
hydralazine 25 mg tablet
50 mg PO TID
Discharge Orders:
Discharge Patient (As Directed); Ordered 07/07/24
Ordered By: Jodi Hodges
Care Plan Goals
Care Plan Goals:
Problem: Readiness for enhanced knowledge related to diagnosis and treatment plan
Goal: Understand your diagnosis and treatment plan needs, including medications if applicable.
Instructions: Know your diagnosis, underlying causes and treatment plan options, including medications if applicable. Consult with your health care team to learn about your diagnosis and treatment plan, including medications if applicable.
Discharge Date and Time
Discharge Date/Time: 07/07/24 22:40
Print Language: SERBIAN

Documented by User: Nish Cherry DO 07/08/24 12:33
Discharge Summary
Discharge Data
Date of Admission: 07/05/24
Date of Discharge: 07/08/24
Discharge Plan
-
Patient Disposition: Home (Routine Discharge)
Discharge Diagnosis/Procedures: Cardiac cath
Diet: Low Cholesterol
Driving Restrictions: No driving for 24 hours
Stand Alone Forms: DC Instructions- Cath/EP Lab
Referrals:
Promise Howard CRNP [Specified Professional Personl] - 08/03/24 9:20 am
Yovani Rodriguez MD [Family Provider] -
Prescriptions:
No Action
Eliquis 5 MG tablet
5 mg PO BID
Patient Comments:
rosuvastatin [Crestor] 40 MG tablet
40 mg PO QPM
dapagliflozin propanediol [Farxiga] 10 MG tablet
10 mg PO DAILY
metoprolol succinate 50 mg Tablet Extended Release 24 Hr
100 mg PO DAILY
amlodipine 5 mg Tablet
10 mg PO DAILY
multivitamin Tablet
1 tab PO DAILY
acetaminophen 325 mg tablet
650 mg PO Q6HPRN PRN (Reason: mild pain) Qty: 14 0RF
furosemide [Lasix] 40 mg tablet
40 mg PO DAILY Qty: 30 0RF
hydralazine 25 mg tablet
50 mg PO TID
Discharge Orders:
Discharge Patient (As Directed); Ordered 07/07/24
Ordered By: Jodi Hodges
Care Plan Goals
Care Plan Goals:
Problem: Readiness for enhanced knowledge related to diagnosis and treatment plan
Goal: Understand your diagnosis and treatment plan needs, including medications if applicable.
Instructions: Know your diagnosis, underlying causes and treatment plan options, including medications if applicable. Consult with your health care team to learn about your diagnosis and treatment plan, including medications if applicable.
Discharge Date and Time
Discharge Date/Time: 07/07/24 22:40
Print Language: SERBIAN
== END 2024-07-07 22:40 | disposition home or self-care (01) | DRG 287 ==
LOC: IVU 22:53
PROVIDERS: Internal Medicine Cardiovascular Disease; Student in an Organized Health Care Education/Training Program; ADMITTING PHYSICIAN Internal Medicine; ATTENDING PHYSICIAN Internal Medicine; CONSULT PHYSICIAN Student in an Organized Health Care Education/Training Program; EMERGENCY PHYSICIAN Emergency Medicine; FAMILY PHYSICIAN Family Medicine
PROC: B2111ZZ Fluoroscopy of Multiple Coronary Arteries using Low Osmolar Contrast (ICD-10-PCS; 2024-07-07)
PROC: B2121ZZ Fluoroscopy of Single Coronary Artery Bypass Graft using Low Osmolar Contrast (ICD-10-PCS; 2024-07-07)
PROC: 4A023N7 Measurement of Cardiac Sampling and Pressure, Left Heart, Percutaneous Approach (ICD-10-PCS; 2024-07-07)
PROC: B2151ZZ Fluoroscopy of Left Heart using Low Osmolar Contrast (ICD-10-PCS; 2024-07-07)
PROC: B2181ZZ Fluoroscopy of Left Internal Mammary Bypass Graft using Low Osmolar Contrast (ICD-10-PCS; 2024-07-07)
DX: R07.89 Other chest pain (principal); I50.32 Chronic diastolic (congestive) heart failure; I13.0 Hypertensive heart and chronic kidney disease with heart failure and stage 1 through stage 4 chronic kidney disease, or unspecified chronic kidney disease; I25.10 Atherosclerotic heart disease of native coronary artery without angina pectoris; G47.33 Obstructive sleep apnea (adult) (pediatric); N18.31 Chronic kidney disease, stage 3a; I48.0 Paroxysmal atrial fibrillation; E78.00 Pure hypercholesterolemia, unspecified; E66.9 Obesity, unspecified; Z79.01 Long term (current) use of anticoagulants; Z68.35 Body mass index [BMI] 35.0-35.9, adult; Z79.899 Other long term (current) drug therapy; Z82.49 Family history of ischemic heart disease and other diseases of the circulatory system; Z95.1 Presence of aortocoronary bypass graft
CPT/HCPCS: 93308; 71275; 80048; 80053; 80061; 83036; 83880; 84484; 85025; 85027; 85379; 85730; 86803; 93005; 93321; 93325; 93459; 99291; C1894; Q9967

== ENCOUNTER → 2025-03-09 12:40 | Outpatient (REF) | payer BC, SELFPAY | LOC: RAD 12:40 | PROVIDERS: ATTENDING PHYSICIAN Internal Medicine Cardiovascular Disease; FAMILY PHYSICIAN Family Medicine; OTHER PHYSICIAN Internal Medicine Critical Care Medicine; REFERRING PHYSICIAN Internal Medicine Cardiovascular Disease | DX: I25.10 Atherosclerotic heart disease of native coronary artery without angina pectoris (principal) | CPT/HCPCS: 70496; 70498; Q9967 ==

== ENCOUNTER → 2025-06-15 08:30 | Outpatient (REF) | payer MEDICARE, OTHER, SELFPAY | LOC: RAD 08:30 | PROVIDERS: ATTENDING PHYSICIAN Surgery Vascular Surgery; FAMILY PHYSICIAN Family Medicine | DX: I65.21 Occlusion and stenosis of right carotid artery (principal) | CPT/HCPCS: 93880 ==